=== PATIENT | female | born 1995 | race Caucasian/White ===

== ENCOUNTER → 2017-11-04 | Outpatient (REF) | payer OTHER | LOC: M LAB REF 17:15 | DX: J06.9 Acute upper respiratory infection, unspecified (principal) ==

== ENCOUNTER → 2017-11-17 | Outpatient (CLI) | payer OTHER ==
[2017-11-17 13:25] LABS: BASO % 0.3 % (0.0-1.0); EOS # 0.1 10^3/uL (0.0-0.50); HEMATOCRIT 38.4 % (36.0-47.0); HEMOGLOBIN 12.7 g/dl (12.0-16.0); IMMATURE GRANULOCYTE % 0.2 % (0-0); LYMPH # 2.2 10^3/uL (1.5-6.5); LYMPH % 23.3 % (24.0-44.0); MEAN CORPUSCULAR HGB CONC 33.1 g/dl (32.0-36.5); MEAN CORPUSCULAR VOLUME 90.6 fl (80.0-96.0); MONO # 0.5 10^3/uL (0.0-0.8); MONO % 5.1 % (0.0-5.0); NEUTROPHILS # 6.6 10^3/uL (1.8-7.7); NEUTROPHILS % 70.1 % (36.0-66.0); PLATELET COUNT, AUTOMATED 487 10^3/uL (150-450); RED BLOOD COUNT 4.24 10^6/uL (4.00-5.40); RED CELL DISTRIBUTION WIDTH 12.5 % (11.5-14.5); WHITE BLOOD COUNT 9.4 10^3/uL (4.0-10.0)
[2017-11-17 14:01] LABS: RUBELLA IgG QUALITATIVE IMMUNE (IMMUNE)
[2017-11-17 14:04] LABS: HBsAg Prenatal NEGATIVE (NEGATIVE)
[2017-11-17 14:31] LABS: HEPATITIS C VIRUS ABY INDEX < 0.0 INDEX (<0.8)
[2017-11-17 14:32] LABS: HIV 1&2 SCREEN CENTAUR NEGATIVE (NEGATIVE)
[2017-11-17 16:24] LABS: CHLAMYDIA DNA AMPLIFICATION NEGATIVE (NEGATIVE); GC DNA AMPLIFICATION NEGATIVE (NEGATIVE)
== END ==
LOC: M SMT 12:00
DX: Z34.81 Encounter for supervision of other normal pregnancy, first trimester (principal); Z3A.09 9 weeks gestation of pregnancy
CPT/HCPCS: 86762

== ENCOUNTER 2017-12-09 19:40 | Observation (INO) | payer OTHER ==
[2017-12-09 21:03] LABS: BASO % 0.3 % (0.0-1.0); EOS # 0.1 10^3/uL (0.0-0.50); EOS % 1.1 % (0.0-3.0); HEMATOCRIT 37.6 % (36.0-47.0); IMMATURE GRANULOCYTE % 0.3 % (0-3.0); LYMPH # 2.6 10^3/uL (1.5-6.5); LYMPH % 24.5 % (24.0-44.0); MEAN CORPUSCULAR HEMOGLOBIN 30.7 pg (27.0-33.0); MEAN CORPUSCULAR HGB CONC 34.6 g/dl (32.0-36.5); MEAN CORPUSCULAR VOLUME 88.9 fl (80.0-96.0); MONO # 0.6 10^3/uL (0.0-0.8); MONO % 5.4 % (0.0-5.0); NEUTROPHILS # 7.3 10^3/uL (1.8-7.7); NEUTROPHILS % 68.4 % (36.0-66.0); PLATELET COUNT, AUTOMATED 408 10^3/uL (150-450); RED BLOOD COUNT 4.23 10^6/uL (4.00-5.40); RED CELL DISTRIBUTION WIDTH 13.1 % (11.5-14.5); WHITE BLOOD COUNT 10.7 10^3/uL (4.0-10.0)
[2017-12-09 21:13] LABS: INR 0.97
[2017-12-09 21:14] LABS: PARTIAL THROMBOPLASTIN TIME 40.3 SECONDS (26.8-37.9)
[2017-12-09] MEDS: NS 1,000 ML IV (21:26)
[2017-12-09 21:39] LABS: ANION GAP 11 MEQ/L (8-16); BLOOD UREA NITROGEN 7 MG/DL (7-18); CALCIUM LEVEL 9.2 MG/DL (8.5-10.1); CARBON DIOXIDE LEVEL 22 MEQ/L (21-32); CHLORIDE LEVEL 105 MEQ/L (98-107); CK-MB VALUE MASS 1.1 NG/ML (0.0-3.6); CPK CREATINE PHOSPHOKINASE 131 U/L (26-192); CREATININE FOR GFR 0.56 MG/DL (0.55-1.30); GLOMERULAR FILTRATION RATE > 60.0 (>60); GLUCOSE, FASTING 78 MG/DL (70-100); MB/CK RELATIVE INDEX 0.83 (< OR =4); POTASSIUM SERUM 3.7 MEQ/L (3.5-5.1); SODIUM LEVEL 138 MEQ/L (136-145); TROPONIN I < 0.02 NG/ML (< 0.10)
[2017-12-09] MEDS: METOCLOPRAMIDE INJ 10MG/2ML VIAL (J2765) IV (23:20)
[2017-12-10 07:07] LABS: HEMATOCRIT 31.1 % (36.0-47.0); MEAN CORPUSCULAR HEMOGLOBIN 31.5 pg (27.0-33.0); MEAN CORPUSCULAR HGB CONC 34.7 g/dl (32.0-36.5); MEAN CORPUSCULAR VOLUME 90.7 fl (80.0-96.0); RED BLOOD COUNT 3.43 10^6/uL (4.00-5.40); RED CELL DISTRIBUTION WIDTH 13.2 % (11.5-14.5); WHITE BLOOD COUNT 7.5 10^3/uL (4.0-10.0)
[2017-12-10 07:15] LABS: HEMOGLOBIN 10.8 g/dl (12.0-16.0)
[2017-12-10 07:16] LABS: PLATELET COUNT, AUTOMATED 305 10^3/uL (150-450)
[2017-12-10 07:25] LABS: ANION GAP 9 MEQ/L (8-16); BLOOD UREA NITROGEN 9 MG/DL (7-18); CALCIUM LEVEL 8.2 MG/DL (8.5-10.1); CARBON DIOXIDE LEVEL 22 MEQ/L (21-32); CHLORIDE LEVEL 107 MEQ/L (98-107); CREATININE FOR GFR 0.53 MG/DL (0.55-1.30); GLOMERULAR FILTRATION RATE > 60.0 (>60); GLUCOSE, FASTING 86 MG/DL (70-100); POTASSIUM SERUM 3.5 MEQ/L (3.5-5.1); SODIUM LEVEL 138 MEQ/L (136-145)
[2017-12-10] MEDS: NS 1,000 ML IV ×2 (09:37→10:48)
[2017-12-10] MEDS: ACETAMINOPHEN TAB 650MG DOSE (2X325MG) PO (23:17)
[2017-12-11 07:04] LABS: HEMOGLOBIN 11.5 g/dl (12.0-16.0); MEAN CORPUSCULAR HEMOGLOBIN 30.4 pg (27.0-33.0); MEAN CORPUSCULAR HGB CONC 33.8 g/dl (32.0-36.5); MEAN CORPUSCULAR VOLUME 89.9 fl (80.0-96.0); PLATELET COUNT, AUTOMATED 345 10^3/uL (150-450); RED BLOOD COUNT 3.78 10^6/uL (4.00-5.40)
[2017-12-11 07:28] LABS: ANION GAP 8 MEQ/L (8-16); BLOOD UREA NITROGEN 6 MG/DL (7-18); CALCIUM LEVEL 8.4 MG/DL (8.5-10.1); CARBON DIOXIDE LEVEL 23 MEQ/L (21-32); CHLORIDE LEVEL 108 MEQ/L (98-107); CREATININE FOR GFR 0.53 MG/DL (0.55-1.30); GLOMERULAR FILTRATION RATE > 60.0 (>60); GLUCOSE, FASTING 83 MG/DL (70-100); POTASSIUM SERUM 3.6 MEQ/L (3.5-5.1); SODIUM LEVEL 139 MEQ/L (136-145)
[2017-12-11 09:00] LABS: KETONE, URINE AUTO RFX NEGATIVE (NEGATIVE); LEUKOCYTE ESTERASE UR AUTO RFX NEGATIVE (NEGATIVE); MUCUS, URINE RFX SMALL (NEGATIVE); NITRITE, URINE AUTO RFX NEGATIVE (NEGATIVE); RBC, URINE AUTO RFX 0 /HPF (0-3); SPECIFIC GRAVITY UR AUTO RFX 1.015 (1.002-1.035); SQUAM EPITHELIAL CELL UR AURFX 0 /HPF (0-6); WBC, URINE AUTO RFX 0 /HPF (0-3)
== END 2017-12-11 12:02 | disposition home or self-care (01) ==
LOC: M MSPAV 12-10 16:44 → M ED 19:40 → M ED INP 22:54
DX: G43.809 Other migraine, not intractable, without status migrainosus (principal); D72.829 Elevated white blood cell count, unspecified; R47.01 Aphasia; Z3A.12 12 weeks gestation of pregnancy; Z33.1 Pregnant state, incidental
CPT/HCPCS: J2765

== ENCOUNTER → 2018-02-10 | Outpatient (CLI) | payer OTHER | LOC: M RAD 18:33 | DX: Z36.89 Encounter for other specified antenatal screening (principal); Z3A.21 21 weeks gestation of pregnancy | CPT/HCPCS: 76816 ==

== ENCOUNTER → 2018-05-26 | Outpatient (REF) | payer OTHER | LOC: M LAB REF 17:18 | DX: Z36.89 Encounter for other specified antenatal screening (principal); Z3A.00 Weeks of gestation of pregnancy not specified | CPT/HCPCS: 87186 ==

== ENCOUNTER → 2018-06-14 | Outpatient (CLI) | payer OTHER | LOC: M RAD 08:05 | DX: O26.843 Uterine size-date discrepancy, third trimester (principal); Z3A.39 39 weeks gestation of pregnancy | CPT/HCPCS: 76816 ==

== ENCOUNTER → 2018-07-25 | Outpatient (REF) | payer OTHER ==
[2018-07-25 14:00] LABS: BASO # 0.1 10^3/uL (0.0-0.2); BASO % 0.9 % (0.0-1.0); EOS # 0.2 10^3/uL (0.0-0.50); EOS % 4.2 % (0.0-3.0); HEMATOCRIT 36.3 % (36.0-47.0); HEMOGLOBIN 12.2 g/dl (12.0-15.5); IMMATURE GRANULOCYTE % 0.4 % (0-3.0); LYMPH # 2.5 10^3/uL (1.5-6.5); LYMPH % 46.1 % (24.0-44.0); MEAN CORPUSCULAR HEMOGLOBIN 29.9 pg (27.0-33.0); MEAN CORPUSCULAR HGB CONC 33.6 g/dl (32.0-36.5); MONO # 0.4 10^3/uL (0.0-0.8); MONO % 7.3 % (0.0-5.0); NEUTROPHILS # 2.2 10^3/uL (1.8-7.7); NEUTROPHILS % 41.1 % (36.0-66.0); PLATELET COUNT, AUTOMATED 372 10^3/uL (150-450); RED BLOOD COUNT 4.08 10^6/uL (4.00-5.40); RED CELL DISTRIBUTION WIDTH 12.9 % (11.5-14.5); WHITE BLOOD COUNT 5.5 10^3/uL (4.0-10.0)
[2018-07-25 14:29] LABS: ERYTHROCYTE SEDIMENTATION RATE 37 mm/hr (0-20)
[2018-07-25 14:31] LABS: ALBUMIN 3.7 GM/DL (3.2-5.2); ALBUMIN/GLOBULIN RATIO 1.12 (1.00-1.93); ALKALINE PHOSPHATASE 113 U/L (45-117); ALT/SGPT 54 U/L (12-78); ANION GAP 8 MEQ/L (8-16); AST/SGOT 24 U/L (7-37); BILIRUBIN,TOTAL 0.4 MG/DL (0.2-1.0); BLOOD UREA NITROGEN 11 MG/DL (7-18); CALCIUM LEVEL 9.2 MG/DL (8.5-10.1); CARBON DIOXIDE LEVEL 25 MEQ/L (21-32); CHLORIDE LEVEL 109 MEQ/L (98-107); CREATININE FOR GFR 0.87 MG/DL (0.55-1.30); FREE T4 0.99 NG/DL (0.76-1.46); GLOMERULAR FILTRATION RATE > 60.0 (>60); GLUCOSE, FASTING 90 MG/DL (70-100); POTASSIUM SERUM 4.5 MEQ/L (3.5-5.1); RHEUMATOID FACTOR QUANT < 10.0 IU/ML (<15.0); SODIUM LEVEL 142 MEQ/L (136-145)
[2018-07-25 14:33] LABS: FOLATE 23.2 NG/ML
[2018-07-30 08:06] LABS: ANTINUCLEAR ANTIBODIES DIRECT Negative (Negative); VITAMIN B1 LEVEL WHOLE BLOOD 77.8 nmol/L (66.5-200.0); VITAMIN B6,PYRIDOXAL PHOSPHATE 2.9 ug/L (2.0-32.8); VITAMIN E(ALPHA TOCOPHEROL) 18.5 mg/L (5.9-19.4); VITAMIN E(GAMMA TOCOPHEROL) 2.6 mg/L (0.7-4.9)
== END ==
LOC: M LABNEURO 13:22
DX: G43.909 Migraine, unspecified, not intractable, without status migrainosus (principal); E07.9 Disorder of thyroid, unspecified
CPT/HCPCS: 82746

== ENCOUNTER → 2018-08-03 | Outpatient (REF) | payer OTHER | LOC: M LAB REF 18:29 | DX: J02.0 Streptococcal pharyngitis (principal) | CPT/HCPCS: 87070 ==

== ENCOUNTER 2018-10-27 04:55 | Emergency (ER) | payer OTHER ==
[~2018-10-27] VITALS: Ht 170.2 cm; Wt 110.9 kg
[~2018-10-27 04:55] MED LIST: AMOX500C PO; IBUP-1114 PO; MAGN400T5 PO; MAPA500T2 PO; MOM30SS PO; PRENTAB16 PO; SUDA15LI2 PO
[2018-10-27] MEDS ORDERED: VITA200015 PO (05:08)
[2018-10-27] MEDS ORDERED: MAGN200T PO (05:08)
[2018-10-27] MEDS ORDERED: MULTCAP PO (05:08)
[2018-10-27 05:55] LABS: BASO # 0.1 10^3/uL (0.0-0.2); BASO % 0.7 % (0.0-1.0); EOS # 0.4 10^3/uL (0.0-0.50); EOS % 3.6 % (0.0-3.0); HEMATOCRIT 40.2 % (36.0-47.0); HEMOGLOBIN 13.2 g/dl (12.0-15.5); LYMPH # 3.8 10^3/uL (1.5-6.5); LYMPH % 39.2 % (24.0-44.0); MEAN CORPUSCULAR HGB CONC 32.8 g/dl (32.0-36.5); MEAN CORPUSCULAR VOLUME 88.4 fl (80.0-96.0); MONO # 0.5 10^3/uL (0.0-0.8); MONO % 5.3 % (0.0-5.0); NEUTROPHILS % 50.9 % (36.0-66.0); PLATELET COUNT, AUTOMATED 471 10^3/uL (150-450); RED BLOOD COUNT 4.55 10^6/uL (4.00-5.40); WHITE BLOOD COUNT 9.8 10^3/uL (4.0-10.0)
[2018-10-27 05:58] LABS: HCG, SERUM QUALITATIVE NEGATIVE (NEGATIVE)
[2018-10-27 06:06] LABS: ALT/SGPT 44 U/L (12-78); BILIRUBIN,DIRECT < 0.1 MG/DL (0.0-0.2); BILIRUBIN,TOTAL 0.3 MG/DL (0.2-1.0); BLOOD UREA NITROGEN 11 MG/DL (7-18); CALCIUM LEVEL 8.8 MG/DL (8.5-10.1); CARBON DIOXIDE LEVEL 23 MEQ/L (21-32); CHLORIDE LEVEL 107 MEQ/L (98-107); CREATININE FOR GFR 0.83 MG/DL (0.55-1.30); GLOMERULAR FILTRATION RATE > 60.0 (>60); GLUCOSE, FASTING 102 MG/DL (70-100); LIPASE 152 U/L (73-393); POTASSIUM SERUM 3.5 MEQ/L (3.5-5.1); SODIUM LEVEL 141 MEQ/L (136-145); TOTAL PROTEIN 7.6 GM/DL (6.4-8.2)
[2018-10-27] MEDS ORDERED: ISOVUE-370 76% 100ML VIAL (Q9967) As Ordered ONE (06:25)
--- NOTE | 2018-10-27 06:49 | REPVR ---
EXAM: CT Abdomen and Pelvis With Contrast EXAM DATE/TIME: 10/27/2018 6:13 AM CLINICAL HISTORY: 23 years old, female; Pain; Abdominal pain; Periumbilical; Additional info: Umbillical pain, no hernia, ? appe TECHNIQUE: Axial computed tomography images of the abdomen and pelvis with intravenous contrast. All CT scans at this facility use at least one of these dose optimization techniques: automated exposure control; mA and/or kV adjustment per patient size (includes targeted exams where dose is matched to clinical indication); or iterative reconstruction. Coronal and sagittal reformatted images were created and reviewed. CONTRAST: 100 ml of iso administered intravenously. COMPARISON: US OBS FOLL UP OR REPEAT EACH GES 06/14/2018 8:13 AM FINDINGS: Lower thorax: No acute findings. ABDOMEN: Liver: Normal. No mass. Gallbladder and bile ducts: Layering gallstones seen within the gallbladder. There is suggestion of mild gallbladder wall thickening. Pancreas: Normal. No ductal dilation. Spleen: Normal. No splenomegaly. Adrenals: Normal. No mass. Kidneys and ureters: Normal. No hydronephrosis. Stomach and bowel: There are thickened versus under distended proximal small bowel - jejunal bowel loops. Appendix: No evidence of appendicitis. PELVIS: Bladder: Unremarkable as visualized. Reproductive: Unremarkable as visualized. ABDOMEN and PELVIS: Intraperitoneal space: Normal. No free air. No significant fluid collection. Bones/joints: No acute fracture. No dislocation. Soft tissues: Unremarkable. Vasculature: Normal. No abdominal aortic aneurysm. Lymph nodes: There are small shotty mesenteric lymph nodes. IMPRESSION: 1. No CT evidence of acute appendicitis. 2. Gallstones with suggestion of mild gallbladder wall thickening. No pericholecystic stranding or edema seen. Finding could be secondary to chronic cholecystitis however underlying acute process cannot be excluded. Correlate with patient's symptoms and LFTs. If indicated ultrasound may be obtained for further evaluation. 3. Underdistended vs mildly thickened jejunal bowel loops. Correlate clinically for enteritis. Electronically signed by: Pratik Murry On 10/27/2018 06:48:45 AM
[2018-10-27] MEDS ORDERED: FLAG500T PO (06:58)
[2018-10-27] MEDS ORDERED: ONDA4TAB6 PO (06:58)
[2018-10-27] MEDS ORDERED: KETO10TAB PO (06:58)
[2018-10-27] MEDS ORDERED: CIPR-249 PO (06:58)
[2018-10-27 07:05] VITALS: BP 132/60
--- NOTE | 2018-10-28 07:21 | ED PDOC ---
Post-Departure Follow-Up rashmi de la vega and david faxed formal report of ct abd/p for fu Bandar Patricio MD Oct 28, 2018 07:21
== END 2018-10-27 07:12 | disposition home or self-care (01) ==
LOC: M ED 04:55
DX: K80.20 Calculus of gallbladder without cholecystitis without obstruction (principal); K52.9 Noninfective gastroenteritis and colitis, unspecified; R10.33 Periumbilical pain; E66.9 Obesity, unspecified; G43.909 Migraine, unspecified, not intractable, without status migrainosus; F41.9 Anxiety disorder, unspecified; R47.01 Aphasia; Z87.440 Personal history of urinary (tract) infections; Z79.899 Other long term (current) drug therapy; Z88.1 Allergy status to other antibiotic agents
CPT/HCPCS: 74177; 80048; 80076; 81001; 83690; 84703; 85025; 99284; Q9967

== ENCOUNTER → 2018-12-27 | Outpatient (REF) | payer OTHER ==
[~2018-12-27] MED LIST changes: +CIPR-249 PO; +FLAG500T PO; +KETO10TAB PO; +MAGN200T PO; +MULTCAP PO; +ONDA4TAB6 PO; +VITA200015 PO
[2018-12-27 17:20] LABS: INFLUENZA A AMPLIFICATION NEGATIVE (NEGATIVE); INFLUENZA B AMPLIFICATION NEGATIVE (NEGATIVE)
== END ==
LOC: M LAB REF 16:32
PROVIDERS: ATTEND Physician Assistant
DX: J11.1 Influenza due to unidentified influenza virus with other respiratory manifestations (principal)

== ENCOUNTER → 2019-01-25 | Outpatient (CLI) | payer OTHER | LOC: M WUC 12:14 | PROVIDERS: ATTEND Family Medicine | DX: E66.9 Obesity, unspecified (principal) ==

== ENCOUNTER 2019-02-22 20:56 | Emergency (ER) | payer OTHER ==
[~2019-02-22] VITALS: Ht 170.2 cm; Wt 113.2 kg
[2019-02-22 20:56] VITALS: BP 171/93
[2019-02-22] MEDS ORDERED: NAPR-837 PO (21:52)
== END 2019-02-22 22:00 | disposition home or self-care (01) ==
LOC: M ED 20:56
DX: S46.912A Strain of unspecified muscle, fascia and tendon at shoulder and upper arm level, left arm, initial encounter (principal); X58.XXXA Exposure to other specified factors, initial encounter; Y92.9 Unspecified place or not applicable; Y93.9 Activity, unspecified; Y99.9 Unspecified external cause status; G43.909 Migraine, unspecified, not intractable, without status migrainosus; Z72.0 Tobacco use; Z79.899 Other long term (current) drug therapy; Z88.8 Allergy status to other drugs, medicaments and biological substances

== ENCOUNTER 2019-07-28 22:04 | Emergency (ER) | payer OTHER ==
[~2019-07-28] VITALS: Ht 170.2 cm; Wt 110.0 kg
[2019-07-28 22:04] VITALS: BP 139/90
[~2019-07-28 22:04] MED LIST changes: +NAPR-837 PO
[2019-07-28] MEDS ORDERED: LILL1TAB PO (22:13)
[2019-07-28] MEDS ORDERED: PRED20TA PO (22:13)
[2019-07-28] MEDS ORDERED: BENZ-18 PO (22:13)
[2019-07-28] MEDS ORDERED: FLUO20CA19 PO (22:13)
[2019-07-28] MEDS ORDERED: AZIT-12 PO (22:13)
[2019-07-28] MEDS ORDERED: IPRATROPIUM 0.5MG/ALBUTEROL 2.5MG INH SOL UD 3ML (DUONEB)(J7620) NEB PRN (23:30)
[2019-07-29 00:12] LABS: BASO % 0.2 % (0.0-1.0); EOS # 0.1 10^3/uL (0.0-0.5); EOS % 0.5 % (0.0-3.0); HEMATOCRIT 38.2 % (36.0-47.0); HEMOGLOBIN 12.5 g/dl (12.0-15.5); LYMPH # 2.1 10^3/uL (1.5-5.0); LYMPH % 12.9 % (24.0-44.0); MEAN CORPUSCULAR HEMOGLOBIN 29.6 pg (27.0-33.0); MEAN CORPUSCULAR HGB CONC 32.7 g/dl (32.0-36.5); MEAN CORPUSCULAR VOLUME 90.5 fl (80.0-96.0); MONO # 0.8 10^3/uL (0.0-0.8); MONO % 4.9 % (0.0-5.0); NEUTROPHILS % 81.2 % (36.0-66.0); PLATELET COUNT, AUTOMATED 452 10^3/uL (150-450); RED BLOOD COUNT 4.22 10^6/uL (4.00-5.40)
[2019-07-29 00:20] LABS: INFLUENZA A AMPLIFICATION NEGATIVE (NEGATIVE); INFLUENZA B AMPLIFICATION NEGATIVE (NEGATIVE)
[2019-07-29 00:22] LABS: BLOOD UREA NITROGEN 10 MG/DL (7-18); CALCIUM LEVEL 9.2 MG/DL (8.5-10.1); CARBON DIOXIDE LEVEL 28 MEQ/L (21-32); CHLORIDE LEVEL 104 MEQ/L (98-107); CK-MB VALUE MASS 2.4 NG/ML (<3.6); CPK CREATINE PHOSPHOKINASE 165 U/L (26-192); CREATININE FOR GFR 0.82 MG/DL (0.55-1.30); GLOMERULAR FILTRATION RATE > 60.0 (>60); GLUCOSE, FASTING 92 MG/DL (70-100); MB/CK RELATIVE INDEX 1.45 (< OR =4); POTASSIUM SERUM 3.7 MEQ/L (3.5-5.1); SODIUM LEVEL 138 MEQ/L (136-145); TROPONIN I < 0.02 NG/ML (< 0.10)
[2019-07-29] MEDS ORDERED: PROAAER10 INH (00:42)
[2019-07-29] MEDS ORDERED: PSEU120T19 PO (00:42)
[2019-07-29] MEDS ORDERED: ALBUTEROL 90 MCG/ACT 8GM HFA INHALER INH ONE ×2 (00:45→01:00)
--- NOTE | 2019-07-29 07:35 | ECGEPIP ---
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
--- NOTE | 2019-07-29 08:27 | REP ---
Chest x-ray: Two views. History: Dyspnea and cough . Comparison study: No comparison study . Findings: The lungs are well inflated and free of infiltrate. The pleural angles are sharp. The heart size is normal. Pulmonary vasculature is not increased. No significant bony abnormality is seen. Impression: Negative chest x-ray. Electronically Signed by Frankie Nolan MD 07/29/2019 08:19 A
== END 2019-07-29 00:54 | disposition home or self-care (01) ==
LOC: M ED 22:04
DX: J06.9 Acute upper respiratory infection, unspecified (principal); Z79.899 Other long term (current) drug therapy; Z88.2 Allergy status to sulfonamides; Z88.8 Allergy status to other drugs, medicaments and biological substances; F17.210 Nicotine dependence, cigarettes, uncomplicated

== ENCOUNTER → 2019-11-23 | Outpatient (REF) | payer OTHER ==
[~2019-11-23] MED LIST changes: +ACET-683 PO; +AZIT-12 PO; +BENZ-18 PO; +FLUO20CA22 PO; +IBUP-1022 PO; +LILL1TAB PO; +OSEL75CA2; +PRED20TA PO; +PROAAER10 INH; +PSEU120T19 PO
[2019-11-23 13:01] LABS: INFLUENZA A AMPLIFICATION NEGATIVE (NEGATIVE); INFLUENZA B AMPLIFICATION NEGATIVE (NEGATIVE)
== END ==
LOC: M LAB REF 12:08
PROVIDERS: ATTEND Physician Assistant
DX: J11.1 Influenza due to unidentified influenza virus with other respiratory manifestations (principal)

== ENCOUNTER 2019-11-28 11:55 | Emergency (ER) | payer OTHER ==
[~2019-11-28] VITALS: Ht 172.7 cm; Wt 112.5 kg
[~2019-11-28 11:55] MED LIST changes: -ACET-683 PO; -IBUP-1022 PO; -OSEL75CA2
[2019-11-28] MEDS ORDERED: OSEL75CA2 (12:02)
[2019-11-28 13:57] LABS: BASO % 0.5 % (0.0-1.0); EOS # 0.2 10^3/uL (0.0-0.5); EOS % 2.7 % (0.0-3.0); LYMPH # 2.6 10^3/uL (1.5-5.0); LYMPH % 30.9 % (24.0-44.0); MEAN CORPUSCULAR HEMOGLOBIN 30.9 pg (27.0-33.0); MEAN CORPUSCULAR HGB CONC 34.2 g/dl (32.0-36.5); MEAN CORPUSCULAR VOLUME 90.3 fl (80.0-96.0); MONO # 0.4 10^3/uL (0.0-0.8); MONO % 4.2 % (0.0-5.0); NEUTROPHILS # 5.2 10^3/uL (1.5-8.5); NEUTROPHILS % 61.3 % (36.0-66.0); PLATELET COUNT, AUTOMATED 466 10^3/uL (150-450); RED BLOOD COUNT 4.21 10^6/uL (4.00-5.40); WHITE BLOOD COUNT 8.4 10^3/uL (4.0-10.0)
--- NOTE | 2019-11-28 14:28 | REP ---
The clinical: Chest pain . Comparison: 07/28/2019 . Findings: The mediastinum and cardiac silhouette are stable and within normal limits for portable technique. The lung cee are clear without acute consolidation, effusion, or pneumothorax. Skeletal structures are intact. Impression: No acute cardiopulmonary process appreciated. Electronically Signed by David Collins MD 11/28/2019 02:20 P
[2019-11-28 14:32] LABS: BLOOD UREA NITROGEN 10 MG/DL (7-18); CALCIUM LEVEL 9.1 MG/DL (8.5-10.1); CARBON DIOXIDE LEVEL 25 MEQ/L (21-32); CHLORIDE LEVEL 107 MEQ/L (98-107); CK-MB VALUE MASS 1.1 NG/ML (<3.6); CPK CREATINE PHOSPHOKINASE 138 U/L (26-192); GLOMERULAR FILTRATION RATE > 60.0 (>60); GLUCOSE, FASTING 124 MG/DL (70-100); POTASSIUM SERUM 3.7 MEQ/L (3.5-5.1); SODIUM LEVEL 137 MEQ/L (136-145); TROPONIN I < 0.02 NG/ML (< 0.10)
[2019-11-28 15:22] VITALS: BP 114/53
[2019-11-28] MEDS ORDERED: ACETAMINOPHEN 325 MG TAB PO ONE (16:00)
[2019-11-28] MEDS ORDERED: IBUPROFEN 800 MG TAB PO ONE (16:00)
[2019-11-28] MEDS ORDERED: IBUP-1022 PO (16:08)
[2019-11-28] MEDS ORDERED: ACET-683 PO (16:08)
--- NOTE | 2019-11-28 20:29 | ECGEPIP ---
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
== END 2019-11-28 16:10 | disposition home or self-care (01) ==
LOC: M ED 11:55
DX: S29.011A Strain of muscle and tendon of front wall of thorax, initial encounter (principal); X58.XXXA Exposure to other specified factors, initial encounter; Y92.89 Other specified places as the place of occurrence of the external cause; Z79.899 Other long term (current) drug therapy; Z88.2 Allergy status to sulfonamides; Z88.8 Allergy status to other drugs, medicaments and biological substances; F17.210 Nicotine dependence, cigarettes, uncomplicated

== ENCOUNTER → 2020-03-21 | Outpatient (CLI) | payer OTHER ==
[~2020-03-21] MED LIST changes: +ACET-683 PO; +IBUP-1022 PO; +OSEL75CA2
[2020-03-21 23:13] LABS: CHLAMYDIA DNA AMPLIFICATION NEGATIVE (NEGATIVE); GC DNA AMPLIFICATION NEGATIVE (NEGATIVE)
[2020-03-22 09:41] LABS: HEPATITIS B SURFACE ANTIBODY NEGATIVE (POSITIVE); HEPATITIS B SURFACE ANTIGEN NEGATIVE (NEGATIVE); HEPATITIS C VIRUS ABY INDEX 0.3 INDEX (<0.8); HIV 1&2 SCREEN CENTAUR NEGATIVE (NEGATIVE)
== END ==
LOC: M WUC 14:54
PROVIDERS: ATTEND Family Medicine
DX: Z11.3 Encounter for screening for infections with a predominantly sexual mode of transmission (principal)

== ENCOUNTER → 2020-03-25 | Outpatient (REF) | payer OTHER | LOC: M SFHCWAGY 17:53 | PROVIDERS: ATTEND Obstetrics & Gynecology | DX: Z12.4 Encounter for screening for malignant neoplasm of cervix (principal); R87.612 Low grade squamous intraepithelial lesion on cytologic smear of cervix (LGSIL) ==

== ENCOUNTER 2020-05-28 07:30 | Day surgery (SDC) | payer OTHER ==
[~2020-05-28 07:30] MED LIST changes: +BUPIVACAINE HCL 0.25% 30ML VIAL ONE
[2020-05-28] MEDS ORDERED: MIDAZOLAM INJ 2MG/2ML VIAL (J2250 PER 1MG) ONE (08:41)
[2020-05-28] MEDS ORDERED: LIDOCAINE 2% 100MG/5ML SDV (FOR ANES.) ONE (08:41)
[2020-05-28] MEDS ORDERED: dexameTHASONE 4 MG/ML 1ML VIAL (J1100 PER 1MG) ONE ×2 (08:41)
[2020-05-28] MEDS ORDERED: METOCLOPRAMIDE INJ 10MG/2ML VIAL (J2765 PER 1) ONE (08:41)
[2020-05-28] MEDS ORDERED: ACETAMINOPHEN 1000MG 100ML IV BTL (OFIRMEV) (J0131 PER 10MG) ONE (08:41)
[2020-05-28] MEDS ORDERED: fentaNYL 100 MCG/2 ML INJECTION (J3010) ONE (08:41)
[2020-05-28] MEDS ORDERED: ROCURONIUM BROMIDE 50 MG/5 ML VIAL ONE (08:41)
[2020-05-28] MEDS ORDERED: KETOROLAC 60MG 2ML VIAL ONE (08:41)
[2020-05-28] MEDS ORDERED: ONDANSETRON 4MG/2ML VIAL ONE (08:41)
[2020-05-28] MEDS ORDERED: propofoL 500 MG/50 ML VIAL ONE (08:41)
[2020-05-28] MEDS ORDERED: GLYCOPYRROLATE INJ 0.2 MG/ML 2 ML VIAL ONE (10:58)
[2020-05-28] MEDS ORDERED: ePHEDrine SULFATE 25 MG/5 ML(5MG/ML) SYRINGE ONE (11:03)
[2020-05-28] MEDS ORDERED: SUGAMMADEX SODIUM 500 MG/5 ML VIAL (BRIDION) ONE (11:14)
[2020-06-25 10:43] LABS: HEMATOCRIT 39.6 % (36.0-47.0); HEMOGLOBIN 13.1 g/dl (12.0-15.5); MEAN CORPUSCULAR HEMOGLOBIN 29.7 pg (27.0-33.0); MEAN CORPUSCULAR HGB CONC 33.1 g/dl (32.0-36.5); MEAN CORPUSCULAR VOLUME 89.8 fl (80.0-96.0); PLATELET COUNT, AUTOMATED 443 10^3/uL (150-450); RED BLOOD COUNT 4.41 10^6/uL (4.00-5.40); WHITE BLOOD COUNT 7.2 10^3/uL (4.0-10.0)
--- NOTE | 2020-07-18 10:17 | RO ---
DATE OF OPERATION: 05/28/2020 PREOPERATIVE DIAGNOSIS: Satisfied parity with undesired fertility. POSTOPERATIVE DIAGNOSIS: Satisfied parity with undesired fertility. PROCEDURE PERFORMED: Laparoscopic bilateral salpingectomies. SURGEON: Stefanie Gómez MD EDGE SANDER: None. ANESTHESIA: General endotracheal anesthesia. ESTIMATED BLOOD LOSS: 5 mL. INTRAVENOUS FLUIDS: 500 mL. URINE OUTPUT: 300 mL. SPECIMENS: Bilateral fallopian tubes. DESCRIPTION OF OPERATION: After informed consent was obtained and written consent was reviewed, the patient was brought to the operating room where she was placed under general endotracheal anesthesia. She was then placed in the lithotomy position and was prepped and draped in normal sterile fashion. A time- out in the operating room was then performed identifying the patient, procedure being performed, as well as drug allergies. A bivalve speculum was then placed revealing the cervix. The anterior lip of the cervix was grasped with a single-toothed tenaculum. The tenaculum was then advanced to the cervical os for a means to manipulate the uterus. The single- toothed tenaculum, as well as the speculum, was removed. Patel catheter was then placed and set to gravity. Gloves were changed and attention was turned to the patient's abdomen where 0.25% Marcaine was infused in the umbilical region. This area was incised and a 5-mm trocar and sleeve were advanced into this incision. Intraabdominal placement was confirmed. Pneumoperitoneum was then obtained with CO2 gas. Two additional port sites were placed. The second port site was 2 cm above the pubic symphysis in the midline. This area was infused with 0.25% Marcaine and an 8-mm incision was made and an 8-mm trocar and sleeve were advanced through this incision under direct visualization. A third port site was placed, parallel to the umbilicus on the left side of the patient's abdomen. This area was infused with 0.25% Marcaine. An incision was then made in this area and a 5-mm trocar and sleeve were advanced through this incision under direct visualization. Next, the abdomen was then surveyed showing a normal pelvic anatomy to include uterus and bilateral adnexa. Next, the bilateral salpingectomy was then performed. The left fallopian tube was placed on traction. Using a Harmonic Arsh scalpel device, the left mesosalpinx was then dissected underneath the fallopian tube to the level of the uterus. The fallopian tube was then transected at the level of the uterus with good hemostasis noted. The specimen was then brought out and sent to pathology. In a similar fashion, the right fallopian tube was placed on traction. Using a Harmonic Arsh scalpel device, the mesosalpinx was cauterized underneath the right fallopian tube to the level of the uterus and then was transected at the level of the uterus with good hemostasis noted. The specimen was also brought out through the port site. The surgical sites were re-inspected and noted to be hemostatic. The pneumoperitoneum was then released. The instruments were removed from the patient's abdomen. Port sites were removed. The three port sites were then closed with 4-0 Monocryl and were dressed with Dermabond. The tenaculum was then removed. The tenaculum site was noted to be hemostatic. Patel catheter was removed. The patient was then taken out of the lithotomy position and taken to the recovery room in stable condition. The counts were correct. MTDD
== END 2020-05-28 10:45 | disposition home or self-care (01) ==
LOC: M SDC 07:30
PROVIDERS: ATTEND Obstetrics & Gynecology
DX: Z30.2 Encounter for sterilization (principal); F41.9 Anxiety disorder, unspecified; F32.9 Major depressive disorder, single episode, unspecified; F17.290 Nicotine dependence, other tobacco product, uncomplicated; Z79.899 Other long term (current) drug therapy; Z88.1 Allergy status to other antibiotic agents
CPT/HCPCS: 36415; 58661; 85027; 86850; 86900; 86901; 88302; J0131; J1100; J1885; J2250; J2405; J2765; J3010

== ENCOUNTER → 2020-07-03 | Outpatient (REF) | payer OTHER ==
[~2020-07-03] MED LIST changes: -BUPIVACAINE HCL 0.25% 30ML VIAL ONE
[2020-07-03 18:01] LABS: BASO # 0.1 10^3/uL (0.0-0.2); BASO % 1.2 % (0.0-1.0); EOS # 0.3 10^3/uL (0.0-0.5); EOS % 3.6 % (0.0-3.0); HEMATOCRIT 41.6 % (36.0-47.0); HEMOGLOBIN 13.3 g/dl (12.0-15.5); LYMPH # 2.7 10^3/uL (1.5-5.0); LYMPH % 35.3 % (24.0-44.0); MEAN CORPUSCULAR HEMOGLOBIN 29.8 pg (27.0-33.0); MEAN CORPUSCULAR VOLUME 93.1 fl (80.0-96.0); MONO # 0.6 10^3/uL (0.0-0.8); MONO % 8.2 % (0.0-5.0); NEUTROPHILS % 51.2 % (36.0-66.0); PLATELET COUNT, AUTOMATED 469 10^3/uL (150-450); RED BLOOD COUNT 4.47 10^6/uL (4.00-5.40); WHITE BLOOD COUNT 7.7 10^3/uL (4.0-10.0)
[2020-07-03 18:08] LABS: ALBUMIN 3.6 GM/DL (3.2-5.2); ALT/SGPT 83 U/L (12-78); BILIRUBIN,TOTAL 0.3 MG/DL (0.2-1.0); BLOOD UREA NITROGEN 9 MG/DL (7-18); CALCIUM LEVEL 9.4 MG/DL (8.5-10.1); CARBON DIOXIDE LEVEL 26 MEQ/L (21-32); CHLORIDE LEVEL 106 MEQ/L (98-107); CHOLESTEROL LEVEL 237 MG/DL (<200); CHOLESTEROL RISK RATIO 5.042 (<5); CREATININE FOR GFR 0.79 MG/DL (0.55-1.30); FREE T4 0.95 NG/DL (0.76-1.46); GLOMERULAR FILTRATION RATE > 60.0 (>60); GLUCOSE, FASTING 96 MG/DL (70-100); HDL CHOLESTEROL 47 MG/DL (>40); LDL CHOLESTEROL 143 MG/DL (<100); NON-HDL-C 190 MG/DL; POTASSIUM SERUM 4.3 MEQ/L (3.5-5.1); SODIUM LEVEL 140 MEQ/L (136-145); TOTAL 25(OH) VITAMIN D 17.2 NG/ML (30.0-100.0); TOTAL PROTEIN 6.9 GM/DL (6.4-8.2); TRIGLYCERIDES LEVEL 233 MG/DL (<150)
[2020-07-03 18:17] LABS: HEMOGLOBIN A1c 5.1 %
== END ==
LOC: M LAB REF 17:07
PROVIDERS: ATTEND Nurse Practitioner Family
DX: Z13.9 Encounter for screening, unspecified (principal); F41.8 Other specified anxiety disorders; F17.200 Nicotine dependence, unspecified, uncomplicated; E66.9 Obesity, unspecified

== ENCOUNTER → 2020-07-03 | Outpatient (REF) | payer OTHER ==
[2020-07-03 14:19] LABS: APPEARANCE, URINE CLOUDY (CLEAR); BACTERIA, URINE AUTO NEGATIVE (NEGATIVE); BILIRUBIN, URINE AUTO NEGATIVE (NEGATIVE); BLOOD, URINE BLOOD NEGATIVE (NEGATIVE); COLOR, URINE YELLOW (YELLOW); GLUCOSE, URINE (UA) AUTO NEGATIVE (NEGATIVE); KETONE, URINE AUTO NEGATIVE (NEGATIVE); LEUKOCYTE ESTERASE, URINE AUTO 2+ (NEGATIVE); NITRITE, URINE AUTO NEGATIVE (NEGATIVE); PROTEIN, URINE AUTO NEGATIVE (NEGATIVE); RBC, URINE AUTO 0 /HPF (0-3); SPECIFIC GRAVITY URINE AUTO 1.021 (1.002-1.035); SQUAMOUS EPITHELIAL CELL UR AU 14 /HPF (0-6); UROBILINOGEN, URINE AUTO 0.2 mg/dL (0.0-2.0); WBC, URINE AUTO 5 /HPF (0-3)
== END ==
LOC: M LAB REF 13:37
PROVIDERS: ATTEND Nurse Practitioner Family
DX: E66.9 Obesity, unspecified (principal); F17.200 Nicotine dependence, unspecified, uncomplicated; Z13.9 Encounter for screening, unspecified; F41.8 Other specified anxiety disorders

== ENCOUNTER → 2020-08-14 | Outpatient (REF) | payer OTHER ==
[2020-08-14 18:12] LABS: APPEARANCE, URINE CLEAR (CLEAR); BACTERIA, URINE AUTO 1+ (NEGATIVE); BILIRUBIN, URINE AUTO NEGATIVE (NEGATIVE); BLOOD, URINE BLOOD NEGATIVE (NEGATIVE); COLOR, URINE YELLOW (YELLOW); GLUCOSE, URINE (UA) AUTO NEGATIVE (NEGATIVE); KETONE, URINE AUTO NEGATIVE (NEGATIVE); LEUKOCYTE ESTERASE, URINE AUTO NEGATIVE (NEGATIVE); NITRITE, URINE AUTO NEGATIVE (NEGATIVE); PROTEIN, URINE AUTO NEGATIVE (NEGATIVE); RBC, URINE AUTO 0 /HPF (0-3); SPECIFIC GRAVITY URINE AUTO 1.017 (1.002-1.035); SQUAMOUS EPITHELIAL CELL UR AU 2 /HPF (0-6); UROBILINOGEN, URINE AUTO 0.2 mg/dL (0.0-2.0); WBC, URINE AUTO 1 /HPF (0-3)
== END ==
LOC: M LAB REF 17:15
PROVIDERS: ATTEND Nurse Practitioner Family
DX: Z11.3 Encounter for screening for infections with a predominantly sexual mode of transmission (principal)

== ENCOUNTER → 2020-08-14 | Outpatient (REF) | payer OTHER | LOC: M LAB REF 16:59 | PROVIDERS: ATTEND Nurse Practitioner Family | DX: Z11.3 Encounter for screening for infections with a predominantly sexual mode of transmission (principal) ==

== ENCOUNTER → 2020-11-15 | Outpatient (CLI) | payer SELFPAY | LOC: M LABSMTC 11:48 | PROVIDERS: ATTEND Pediatrics | DX: Z20.822 Contact with and (suspected) exposure to COVID-19 (principal) ==

== ENCOUNTER 2020-12-11 20:32 | Emergency (ER) | payer OTHER ==
[~2020-12-11] VITALS: Ht 170.2 cm; Wt 129.6 kg
[2020-12-11] MEDS ORDERED: MUCI600T31 PO (20:52)
[2020-12-11] MEDS ORDERED: XANA1TAB2 PO ×2 (20:52→23:40)
[2020-12-11] MEDS ORDERED: PROAAER10 INH (23:40)
[2020-12-11] MEDS ORDERED: BREAMIS10 MC (23:40)
[2020-12-11] MEDS ORDERED: TESS100C PO (23:40)
[2020-12-12 00:18] VITALS: BP 138/88
--- NOTE | 2020-12-13 07:58 | ECGEPIP ---
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
== END 2020-12-12 00:37 | disposition home or self-care (01) ==
LOC: M ED 20:32
DX: R06.02 Shortness of breath (principal); R53.83 Other fatigue; U07.1 COVID-19; Z88.2 Allergy status to sulfonamides; Z88.8 Allergy status to other drugs, medicaments and biological substances; Z79.3 Long term (current) use of hormonal contraceptives

== ENCOUNTER → 2020-12-23 | Outpatient (REF) | payer OTHER ==
[~2020-12-23] MED LIST changes: +BREAMIS10 MC; +MUCI600T31 PO; +TESS100C PO; +XANA1TAB2 PO
[2020-12-23 17:10] LABS: BASO # 0.1 10^3/uL (0.0-0.2); BASO % 0.9 % (0.0-1.0); EOS # 0.2 10^3/uL (0.0-0.5); EOS % 2.3 % (0.0-3.0); HEMATOCRIT 44.4 % (36.0-47.0); HEMOGLOBIN 14.5 g/dl (12.0-15.5); LYMPH # 2.6 10^3/uL (1.5-5.0); LYMPH % 37.8 % (24.0-44.0); MEAN CORPUSCULAR HEMOGLOBIN 29.5 pg (27.0-33.0); MEAN CORPUSCULAR HGB CONC 32.7 g/dl (32.0-36.5); MEAN CORPUSCULAR VOLUME 90.4 fl (80.0-96.0); MONO # 0.6 10^3/uL (0.0-0.8); MONO % 8.5 % (2.0-8.0); NEUTROPHILS # 3.4 10^3/uL (1.5-8.5); NEUTROPHILS % 50.4 % (36.0-66.0); PLATELET COUNT, AUTOMATED 595 10^3/uL (150-450); RED BLOOD COUNT 4.91 10^6/uL (4.00-5.40); WHITE BLOOD COUNT 6.8 10^3/uL (4.0-10.0)
[2020-12-23 17:17] LABS: ALT/SGPT 56 U/L (12-78); BILIRUBIN,TOTAL 0.6 MG/DL (0.2-1.0); BLOOD UREA NITROGEN 6 MG/DL (7-18); CARBON DIOXIDE LEVEL 27 MEQ/L (21-32); CHLORIDE LEVEL 104 MEQ/L (98-107); CHOLESTEROL LEVEL 255 MG/DL (<200); CHOLESTEROL RISK RATIO 5.204 (<5); CREATININE FOR GFR 0.87 MG/DL (0.55-1.30); GLOMERULAR FILTRATION RATE > 60.0 (>60); GLUCOSE, FASTING 97 MG/DL (70-100); HDL CHOLESTEROL 49 MG/DL (>40); LDL CHOLESTEROL 171 MG/DL (<100); NON-HDL-C 206 MG/DL; POTASSIUM SERUM 4.3 MEQ/L (3.5-5.1); SODIUM LEVEL 138 MEQ/L (136-145); TOTAL PROTEIN 7.7 GM/DL (6.4-8.2); TRIGLYCERIDES LEVEL 173 MG/DL (<150)
[2020-12-23 17:25] LABS: TOTAL 25(OH) VITAMIN D 31.6 NG/ML (30.0-100.0)
[2020-12-23 18:05] LABS: HIV 1&2 SCREEN CENTAUR NEGATIVE (NEGATIVE)
== END ==
LOC: M LAB REF 16:28
PROVIDERS: ATTEND Nurse Practitioner Family
DX: E78.5 Hyperlipidemia, unspecified (principal); E66.01 Morbid (severe) obesity due to excess calories; Z11.3 Encounter for screening for infections with a predominantly sexual mode of transmission

== ENCOUNTER 2021-07-29 09:15 | Emergency (ER) | payer OTHER ==
[~2021-07-29] VITALS: Ht 170.2 cm; Wt 128.0 kg
--- OUTSIDE RECORDS SUMMARY | 2021-07-29 09:20 | CCD ---
Author Organization Unknown Address [address] [place] [address] Phone [phone] Care Team Providers Care Thermostat Maker Name Role Phone Ember Davila Unavailable Unavailable Allergies Code Code System Name Reaction Severity Status Onset 890645 RxNorm Bactrim Active 05/30/2020 Medications Name Status Start Date Stop Date acetaminophen 500 mg tablet Completed 01/2020 albuterol sulfate HFA 90 mcg/actuation a erosol inhaler INHALE 2 PUFFS BY MOUTH EVERY 4 6 HOURS NEEDED FOR WHEEZING Completed 02/12/2021 alprazolam 0.5 mg tablet Completed alprazolam 1 mg tablet Take 1 tablet 3 times a day by oral route. Active Not available azelastine 137 mcg (0.1 %) nasal spray aerosol Completed 08/14/2020 azithromycin 250 mg tablet TAKE TWO TABLETS BY MOUTH AT ONCE ON THE FIRST DAY THEN TAKE ONE DAILY THEREAFTER Completed 08/14/2020 benzonatate 100 mg capsule TAKE ONE CAPSULE BY MOUTH THREE TIMES A DAY FOR COUGH Completed 02/12/2021 cefdinir 300 mg capsule TAKE ONE CAPSULE BY MOUTH TWICE A DAY FOR 10 DAYS Completed 08/14/2020 cholecalciferol (vitamin D3) 1,250 mcg ( 50,000 unit) capsule TAKE ONE CAPSULE BY MOUTH WEEKLY FOR 12 WEEKS THEN TAKE 1000UNITS DAILY Active Not available fluoxetine 20 mg capsule TAKE ONE CAPSULE BY MOUTH EVERY DAY Active Not available fluticasone propionate 50 mcg/actuation nasal spray,suspension SPRAY 1 SPRAY IN EACH NOSTRIL ONCE A DAY Active Not available ibuprofen 600 mg tablet TAKE ONE TABLET BY MOUTH EVERY 6 HOURS NEEDED FOR PAIN Completed 08/14/2020 ibuprofen 800 mg tablet TAKE 1 TABLET BY MOUTH EVERY 8 HOURS NEEDED FOR PAIN Active Not available ketorolac 0.5 % eye drops INSTILL 1 DROP IN THE AFFECTED EYE S THREE TIMES A DAY FOR 5 DAYS Completed 06/10/2021 loratadine 10 mg tablet TAKE ONE TABLET BY MOUTH EVERY DAY NEEDED FOR ALLERGY SYMPTOMS Completed 08/14/2020 ondansetron 4 mg disintegrating tablet Completed 02/12/2021 Kika Stack [facility] spacer USE DIRECTED Completed 06/10/2021 oseltamivir 75 mg capsule Completed 2019 oxycodone-acetaminophen 5 mg-325 mg tablet Completed 08/14/2020 Jennifer 28 0.15 mg-0.03 mg tablet Completed 08/14/2020 prednisone 20 mg tablet TAKE TWO TABLETS BY MOUTH EVERY DAY Active Not available tobramycin 0.3 % eye drops INSTILL 2 DROPS INTO THE AFFECTED EYE S THREE TIMES A DAY FOR 7 DAYS Completed 06/10/2021 Notes: L-Theanine 200 mg (takes 2 tabs a day) for mood support Problems Name Status Onset Date Source Nicotine Dependence Active 05/30/2020 History Emotional State Finding Unknown 05/30/2020 History Clinical Finding Unknown 05/30/2020 History General Finding of Observation of Patient Unknown 2019 History Vitamin D Deficiency Active 07/17/2020 History Impacted Tooth Unknown 07/17/2020 History Screening for Malignant Neoplasm of Cervix Unknown 08/21 Procedures Date Name Performed by Tonsilectomy/adenoids Information not av ailable Ligation of Fallopian Tube Information n ot available Notes: Tubal 05/28/2020, Adnoidectomy , T onsillectomy Results Lab Results Date Name Specimen Result Interpretation Description Value Range Status Address 12/23/2020 CBC W/ Auto Diff Normal White Blood Count 6.8 10 4.0-10.[address] [facility]: [address] [place] [address] Normal Red Blood Count 4.91 10 4.00-5.[address] [facility]: [address] [place] [address] Normal Hemoglobin 14.5 g/dL 12.0-15.5 g/dL [facility]: [address] [place] [address] Normal Hematocrit 44.4 % 36.0-47.0 % [facility]: [address] [place] [address] Normal Mean Corpuscular Volume 90.4 fL 80.0 -96.[address] [facility]: [address] [place] [address] Normal Mean Corpuscular Hemoglobin 29.5 pg 27.0-33.[address] [facility]: [address] [place] [address] Normal Mean Corpuscular HGB Conc 32.7 g/dL 32.0-36.5 g/dL [facility]: [address] [facility] Normal Red Cell Distribution Width 13.1 % 1 1.5-14.5 % [facility]: [address] [place] [address] High Platelet Count, Automated 595 10 150 -[address] [facility]: [address] [facility] Normal Neutrophils % 50.4 % 36.0-66.0 % [facility]: [address] [facility] Normal Lymph % 37.8 % 24.0-44.0 % [facility]: [address] [place] [address] High [place] % 8.5 % 2.0-8.0 % Final [facility]: [address] [place] [address] Normal Eos % 2.3 % 0.0-3.0 % [facility]: [address] [place] [address] Normal Baso % 0.9 % 0.0-1.0 % Final [facility]: 0 [facility] Normal Immature Granulocyte % 0.1 % 0-3.0 % [facility]: [address] [place] [address] Normal Nucleated Red Blood Cell % 0.0 % 0- 0 % [facility]: 0 [facility] Normal Neutrophils # 3.4 10 1.5-8.5 10 [facility]: [address] [facility] Normal Lymph # 2.6 10 1.5-5.0 10 [facility]: [address] [facility] Normal [place] # 0.6 10 0.0-0.8 10 [facility]: [address] [place] [address] Normal Eos # 0.2 10 0.0-0.5 10 [facility]: [address] [place] [address] Normal Baso # 0.1 10 0.0-0.2 10 [facility]: [address] [place] [address] 12/23/2020 CMP, Serum or Plasma Normal Glucose, Fastin g 97 mg/dL 70-100 mg/dL [facility]: [address] [facility] Low Blood Urea Nitrogen 6 mg/dL 7-18 mg/ dL [facility]: [address] [facility] Normal Creatinine for GFR 0.87 mg/dL 0.55-1 .30 mg/dL [facility]: [address] [facility] Normal Glomerular Filtration Rate > 60.0 >[address] [facility]: [address] [facility] Normal Sodium Level 138 mEq/L 136-145 mEq/L [facility]: [address] [facility] Normal Potassium Serum 4.3 mEq/L 3.5-5.1 mE q/L [facility]: [address] [facility] Normal Chloride Level 104 mEq/L 98-107 mEq/ L [facility]: [address] [facility] Normal Carbon Dioxide Level 27 mEq/L 21-32 mEq/L [facility]: [address] [facility] Low Anion Gap 7 mEq/L 8-16 mEq/L [facility]: [address] [facility] Normal Calcium Level 10.0 mg/dL 8.5-10.1 mg /dL [facility]: [address] [facility] Normal AST/SGOT 26 U/L 7-37 U/L [facility]: [address] [facility] Normal ALT/SGPT 56 U/L 12-78 U/L [facility]: [address] [facility] Normal Alkaline Phosphatase 93 U/L 45-117 U /L [facility]: [address] [facility] Normal Bilirubin,total 0.6 mg/dL 0.2-1.0 mg /dL [facility]: [address] [facility] Normal Total Protein 7.7 gm/dL 6.4-8.2 gm/d L [facility]: [address] [facility] Normal Albumin 4.0 gm/dL 3.2-5.2 gm/dL Lili l [facility]: [address] [facility] Low Albumin/globulin Ratio 1.1 1.2-2. 2 [facility]: [address] [facility] 12/23/2020 Lipid Panel, Blood High Triglycerides Lev el 173 mg/dL <150 mg/dL Final [facility]: [address] [facility] High Cholesterol Level 255 mg/dL <200 mg/ dL [facility]: [address] [facility] Normal HDL Cholesterol 49 mg/dL >40 mg/dL F inal [facility]: [address] [facility] High LDL Cholesterol 171 mg/dL <100 mg/dL [facility]: [address] [facility] Normal Non-hdl-c 206 mg/dL Final [facility]: [address] [facility] High Cholesterol Risk Ratio 5.204 <5 [facility]: [address] [facility] 12/23/2020 Vitamin D, 25-Hydroxy, Total, Serum Normal Total 25(Oh) Vitamin D 31.6 NG/mL 30.0-100.0 NG/mL [facility]: [address] [facility] 12/23/2020 HIV 1+2 AB + HIV 1 P24 Ag, Qualitative Immunoassay, Serum Normal HIV 1&2 Screen Centaur negative negative [facility]: [address] [facility] 12/11/2020 Istat ABG Normal Istat pH 7.403 units 7.350-7. [address] [facility]: [address] [facility] Normal Istat pCO2 36.4 mmHg 35.0-45.[address] [facility]: [address] [facility] Low Istat pO2 77.0 mmHg 80-105 mmHg Lili l [facility]: [address] [facility] Normal Istat TCO2 24.0 mmol/L 23.0-27.0 mmo l/L [facility]: [address] [facility] Normal Istat HCO3 22.7 mmol/L 22.0-26.0 mmo l/L [facility]: [address] [facility] Normal Istat Base Excess -2.0 mmol/L -2.0-3 .0 mmol/L [facility]: [address] [facility] Normal Istat So2 95 % 95-98 % [facility]: [address] [facility] 08/14/2020 Urinalysis, Dipstick Normal Appearance, Uri ne clear clear [facility]: [address] [facility] Normal Color, Urine yellow yellow [facility]: [address] [facility] Normal pH,urine 6.0 units 5.0-9.0 units [facility]: [address] [facility] Normal Specific [place] Urine Auto 1.017 1 .002-1.035 [facility]: [address] [facility] Normal Protein, Urine Auto negative mg/dL n egative mg/dL [facility]: [address] [facility] Normal Glucose, Urine (UA) Auto negative mg /dL negative mg/dL [facility]: [address] [facility] Normal Ketone, Urine Auto negative mg/dL ne gative mg/dL [facility]: [address] [facility] Normal Urobilinogen, Urine Auto 0.2 mg/dL 0 .0-2.0 mg/dL [facility]: [address] [facility] Normal Bilirubin, Urine Auto negative negat zia [facility]: [address] [facility] Normal Nitrite, Urine Auto negative negativ e [facility]: [address] [facility] Normal Leukocyte Esterase, Urine Auto negat zia negative [facility]: [address] [facility] Normal Blood, Urine Blood negative negative [facility]: [address] [facility] Normal WBC, Urine Auto 1 /hpf 0-3 /hpf [facility]: [address] [facility] Normal RBC, Urine Auto 0 /hpf 0-3 /hpf [facility]: [address] [facility] High Bacteria, Urine Auto 1+ negative [facility]: [address] [facility] Normal Squamous Epithelial Cell Ur AU 2 /hp f 0-6 /hpf Final [facility]: [address] [facility] Normal Hyaline Cast, Urine Auto 0 /lpf 0-1 /lpf Final [facility]: [address] [facility] 08/14/2020 Trichomonas Vaginalis Amp Normal Tr ichomonas Vaginalis (Amp) not detected negative Final [facility] nter: [address] [facility] 08/14/2020 HIV 1+2 AB + HIV 1 P24 Ag, Qualitative Immunoassay, Serum Normal HIV 1&2 Screen Centaur negative negative Final [facility]: [address] [facility] 08/14/2020 Chlamydia & GC DNA Probes Normal Chlamydia DNA Probe negative negative Final [facility]: [address] [facility] Normal GC DNA Probe negative negative Final [facility]: [address] [facility] Past Encounters 06/10/2021 Generalized Anxiety Disorder NAYA [place]: [address] [place] [phone], Ph. 03/20/2021 Ember Davila [facility]: [address] [place] [phone], Ph. 02/12/2021 Disorder of Upper Respiratory System; Acute Serous Otitis Media of Bilateral Ears; Elevated Blood-pressure Reading without Diagnosis of Hypertension Shoshana Gore PA-C: [address] [place] [phone], Ph. 12/23/2020 Ember Davila [facility]: [address] [place] [phone], Ph. 08/14/2020 Mixed Anxiety and Depressive Disorder; Needs Influenza Immunization; Venereal Disease Screening; Hyperlipidemia; Morbid Obesity; Vitamin D Deficiency; Patient Asked to Attend Ember Davila [facility]: [address] [place] [phone], Ph. Social History Tobacco Smoking Status Light Tobacco Smoker (1/4 pack per da y) Vaccine List Vaccine Type COVID-19, mRNA, LNP-S, PF, 100 mcg/0.5 m L dose 05/30/2021 influenza, injectable, quadrivalent, pre servative free 08/14/20200.5 mL Notes: Pt would like Flu vaccine this vi sit Plan of Care Patient Instructions call us in two weeks if concerned about your lab results. Reminders Provider Appointments None recorded. Lab None recorded. Referral None recorded. Procedures None recorded. Surgeries None recorded. Imaging None recorded. Vitals 06/10/2021 10:00AM TELEPSYCH 30 Height Weight BMI 67 in 287 lbs 16 oz 45.1 kg/m2 03/20/2021 09:50AM NURSE Height Blood Pressure 67 in 134/83 mm[Hg] 02/12/2021 09:00AM SAME DAY 20 Height Weight BMI Blood Pressure 67 in 274 lbs 16 oz 43.1 kg/m2 137/93 mm[Hg] 08/14/2020 11:20AM ESTABLISHED [id number] Height Weight BMI Blood Pressure 67 in 289 lbs 2 oz 45.3 kg/m2 129/83 mm[Hg] 05/30/2020 Height Weight BMI Blood Pressure 67 in 291 lbs 4 oz 45.78 kg/m2 121/80 mm[Hg]
--- OUTSIDE RECORDS SUMMARY | 2021-07-29 09:21 | CCD ---
Author Author [facility] Organization [facility] Address Unknown Phone Unavailable Care Team Providers Care Tapper Helper Name Role Phone Ember Davila GEOSPATIAL INFORMATION TECHNOLOGIST Unavailable Unavailable CHARLEE, A. GEOSPATIAL INFORMATION TECHNOLOGIST NITIN Unavailable [phone] CHARLEE, A. GEOSPATIAL INFORMATION TECHNOLOGIST NITIN Unavailable [phone] CHARLEE, A. GEOSPATIAL INFORMATION TECHNOLOGIST NITIN Unavailable [phone] CHARLEE, A. GEOSPATIAL INFORMATION TECHNOLOGIST NITIN Unavailable [phone] CHARLEE, A. GEOSPATIAL INFORMATION TECHNOLOGIST NITIN Unavailable [phone] CHARLEE, A. GEOSPATIAL INFORMATION TECHNOLOGIST NITIN Unavailable [phone] CHARLEE, A. GEOSPATIAL INFORMATION TECHNOLOGIST NITIN Unavailable [phone] CHARLEE, A. GEOSPATIAL INFORMATION TECHNOLOGIST NITIN Unavailable [phone] CHARLEE, A. GEOSPATIAL INFORMATION TECHNOLOGIST NITIN Unavailable [phone] CHARLEE, A. GEOSPATIAL INFORMATION TECHNOLOGIST NITIN Unavailable [phone] CHARLEE, A. GEOSPATIAL INFORMATION TECHNOLOGIST NITIN Unavailable [phone] CHARLEE, A. GEOSPATIAL INFORMATION TECHNOLOGIST NITIN Unavailable [phone] CHARLEE, A. GEOSPATIAL INFORMATION TECHNOLOGIST NITIN Unavailable [phone] CHARLEE, A. GEOSPATIAL INFORMATION TECHNOLOGIST NITIN Unavailable [phone] CHARLEE, A. GEOSPATIAL INFORMATION TECHNOLOGIST NITIN Unavailable [phone] JENNIE, PATRIA SCALLOP RAKER Unavailable Unavailable JENNIE, PATRIA SCALLOP RAKER Unavailable Unavailable JENNIE, PATRIA SCALLOP RAKER Unavailable Unavailable JENNIE, PATRIA SCALLOP RAKER Unavailable Unavailable JENNIE, PATRIA SCALLOP RAKER Unavailable Unavailable JENNIE, PATRIA SCALLOP RAKER Unavailable Unavailable JENNIE, PATRIA SCALLOP RAKER Unavailable Unavailable Giovanni, A Ember GEOSPATIAL INFORMATION TECHNOLOGIST Unavailable Unavailable Giovanni, A Ember GEOSPATIAL INFORMATION TECHNOLOGIST Unavailable Unavailable Giovanni, A Ember GEOSPATIAL INFORMATION TECHNOLOGIST Unavailable Unavailable Giovanni, A Ember GEOSPATIAL INFORMATION TECHNOLOGIST Unavailable Unavailable Giovanni, A Ember GEOSPATIAL INFORMATION TECHNOLOGIST Unavailable Unavailable Giovanni, A Ember GEOSPATIAL INFORMATION TECHNOLOGIST Unavailable Unavailable Giovanni, A Ember GEOSPATIAL INFORMATION TECHNOLOGIST Unavailable Unavailable Giovanni, A Ember GEOSPATIAL INFORMATION TECHNOLOGIST Unavailable Unavailable Giovanni, A Ember GEOSPATIAL INFORMATION TECHNOLOGIST Unavailable Unavailable Giovanni, A Ember GEOSPATIAL INFORMATION TECHNOLOGIST Unavailable Unavailable Giovanni, A Ember GEOSPATIAL INFORMATION TECHNOLOGIST Unavailable Unavailable Giovanni, A Ember GEOSPATIAL INFORMATION TECHNOLOGIST Unavailable Unavailable Giovanni, A Ember GEOSPATIAL INFORMATION TECHNOLOGIST Unavailable Unavailable Giovanni, A Ember GEOSPATIAL INFORMATION TECHNOLOGIST Unavailable Unavailable Giovanni, A Ember GEOSPATIAL INFORMATION TECHNOLOGIST Unavailable Unavailable Giovanni, A Ember GEOSPATIAL INFORMATION TECHNOLOGIST Unavailable Unavailable Giovanni, A Ember GEOSPATIAL INFORMATION TECHNOLOGIST Unavailable Unavailable Giovanni, A Ember GEOSPATIAL INFORMATION TECHNOLOGIST Unavailable Unavailable Giovanni, A Ember GEOSPATIAL INFORMATION TECHNOLOGIST Unavailable Unavailable Giovanni, A Ember GEOSPATIAL INFORMATION TECHNOLOGIST Unavailable Unavailable Giovanni, A Ember GEOSPATIAL INFORMATION TECHNOLOGIST Unavailable Unavailable Giovanni, A Ember GEOSPATIAL INFORMATION TECHNOLOGIST Unavailable Unavailable Giovanni, A Ember GEOSPATIAL INFORMATION TECHNOLOGIST Unavailable Unavailable Giovanni, A Ember GEOSPATIAL INFORMATION TECHNOLOGIST Unavailable Unavailable Giovanni, A Ember GEOSPATIAL INFORMATION TECHNOLOGIST Unavailable Unavailable Giovanni, A Ember GEOSPATIAL INFORMATION TECHNOLOGIST Unavailable Unavailable Giovanni, A Ember GEOSPATIAL INFORMATION TECHNOLOGIST Unavailable Unavailable Giovanni, A Ember GEOSPATIAL INFORMATION TECHNOLOGIST Unavailable Unavailable Giovanni, A Ember GEOSPATIAL INFORMATION TECHNOLOGIST Unavailable Unavailable Giovanni, A Ember GEOSPATIAL INFORMATION TECHNOLOGIST Unavailable Unavailable Giovanni, A Ember GEOSPATIAL INFORMATION TECHNOLOGIST Unavailable Unavailable RING, K AFSANEH PA Unavailable Unavailable RING, K AFSANEH PA Unavailable Unavailable RING, K AFSANEH PA Unavailable Unavailable RING, K AFSANEH PA Unavailable Unavailable RING, K AFSANEH PA Unavailable Unavailable RING, K AFSANEH PA Unavailable Unavailable RING, K AFSANEH PA Unavailable Unavailable RING, K AFSANEH PA Unavailable Unavailable RING, K AFSANEH PA Unavailable Unavailable RING, K AFSANEH PA Unavailable Unavailable RING, K AFSANEH PA Unavailable Unavailable RING, K AFSANEH PA Unavailable Unavailable RING, K AFSANEH PA Unavailable Unavailable RING, K AFSANEH PA Unavailable Unavailable RING, K AFSANEH PA Unavailable Unavailable RING, K AFSANEH PA Unavailable Unavailable RING, K AFSANEH PA Unavailable Unavailable RING, K AFSANEH PA Unavailable Unavailable RING, K AFSANEH PA Unavailable Unavailable RING, K AFSANEH PA Unavailable Unavailable RING, K AFSANEH PA Unavailable Unavailable Rahul Gutierrez MD Unavailable Unavailable Rahul Gutierrez MD Unavailable Unavailable Rahul Gutierrez MD Unavailable Unavailable Rahul Gutierrez MD Unavailable Unavailable Rahul Gutierrez MD Unavailable Unavailable Rahul Gutierrez MD Unavailable Unavailable Rahul Gutierrez MD Unavailable Unavailable Rahul Gutierrez MD Unavailable Unavailable Rahul Gutierrez MD Unavailable Unavailable Rahul Gutierrez MD Unavailable Unavailable Rahul Gutierrez MD Unavailable Unavailable Rahul Gutierrez MD Unavailable Unavailable Rahul Gutierrez MD Unavailable Unavailable Rahul Gutierrez MD Unavailable Unavailable Rahul Gutierrez MD Unavailable Unavailable Rahul Gutierrez MD Unavailable Unavailable Rahul Gutierrez MD Unavailable Unavailable Rahul Gutierrez MD Unavailable Unavailable Rahul Gutierrez MD Unavailable Unavailable Rahul Gutierrez MD Unavailable Unavailable Rahul Gutierrez MD Unavailable Unavailable Rahul Gutierrez MD Unavailable Unavailable Rahul Gutierrez MD Unavailable Unavailable Rahul Gutierrez MD Unavailable Unavailable Rahul Gutierrez MD Unavailable Unavailable Giovanni, A Ember GEOSPATIAL INFORMATION TECHNOLOGIST Unavailable Unavailable Giovanni, A Ember GEOSPATIAL INFORMATION TECHNOLOGIST Unavailable Unavailable Giovanni, A Ember GEOSPATIAL INFORMATION TECHNOLOGIST Unavailable Unavailable Giovanni, A Ember GEOSPATIAL INFORMATION TECHNOLOGIST Unavailable Unavailable Giovanni, A Ember GEOSPATIAL INFORMATION TECHNOLOGIST Unavailable Unavailable Giovanni, A Ember GEOSPATIAL INFORMATION TECHNOLOGIST Unavailable Unavailable Giovanni, A Ember GEOSPATIAL INFORMATION TECHNOLOGIST Unavailable Unavailable Giovanni, A Ember GEOSPATIAL INFORMATION TECHNOLOGIST Unavailable Unavailable Giovanni, A Ember GEOSPATIAL INFORMATION TECHNOLOGIST Unavailable Unavailable Giovanni, A Ember GEOSPATIAL INFORMATION TECHNOLOGIST Unavailable Unavailable Giovanni, A Ember GEOSPATIAL INFORMATION TECHNOLOGIST Unavailable Unavailable Giovanni, A Ember GEOSPATIAL INFORMATION TECHNOLOGIST Unavailable Unavailable Giovanni, A Ember GEOSPATIAL INFORMATION TECHNOLOGIST Unavailable Unavailable Giovanni, A Ember GEOSPATIAL INFORMATION TECHNOLOGIST Unavailable Unavailable Giovanni, A Ember GEOSPATIAL INFORMATION TECHNOLOGIST Unavailable Unavailable Giovanni, A Ember GEOSPATIAL INFORMATION TECHNOLOGIST Unavailable Unavailable Giovanni, A Meber GEOSPATIAL INFORMATION TECHNOLOGIST Unavailable Unavailable Giovanni, A Ember GEOSPATIAL INFORMATION TECHNOLOGIST Unavailable Unavailable Giovanni, A Ember GEOSPATIAL INFORMATION TECHNOLOGIST Unavailable Unavailable Giovanni, A Ember GEOSPATIAL INFORMATION TECHNOLOGIST Unavailable Unavailable Giovanni, A Ember GEOSPATIAL INFORMATION TECHNOLOGIST Unavailable Unavailable Giovanni, A Ember GEOSPATIAL INFORMATION TECHNOLOGIST Unavailable Unavailable Giovanni, A Ember GEOSPATIAL INFORMATION TECHNOLOGIST Unavailable Unavailable Giovanni, A Ember GEOSPATIAL INFORMATION TECHNOLOGIST Unavailable Unavailable Giovanni, A Ember GEOSPATIAL INFORMATION TECHNOLOGIST Unavailable Unavailable Giovanni, A Ember GEOSPATIAL INFORMATION TECHNOLOGIST Unavailable Unavailable Giovanni, A Ember GEOSPATIAL INFORMATION TECHNOLOGIST Unavailable Unavailable Giovanni, A Ember GEOSPATIAL INFORMATION TECHNOLOGIST Unavailable Unavailable Giovanni, A Ember GEOSPATIAL INFORMATION TECHNOLOGIST Unavailable Unavailable Giovanni, A Ember GEOSPATIAL INFORMATION TECHNOLOGIST Unavailable Unavailable Giovanni, A Ember GEOSPATIAL INFORMATION TECHNOLOGIST Unavailable Unavailable Scordo, M Shoshana PA Unavailable Unavailable Scordo, M Shoshana PA Unavailable Unavailable Scordo, M Shoshana PA Unavailable Unavailable Scordo, M Shoshana PA Unavailable Unavailable Scordo, M Shoshana PA Unavailable Unavailable Scordo, M Shoshana PA Unavailable Unavailable Scordo, M Shoshana PA Unavailable Unavailable Scordo, M Shoshana PA Unavailable Unavailable Scordo, M Shoshana PA Unavailable Unavailable Scordo, M Shoshana PA Unavailable Unavailable Scordo, M Shoshana PA Unavailable Unavailable Scordo, M Shoshana PA Unavailable Unavailable Scordo, M Shoshana PA Unavailable Unavailable Scordo, M Shoshana PA Unavailable Unavailable Scordo, M Shoshana PA Unavailable Unavailable Scordo, M Shoshana PA Unavailable Unavailable Scordo, M Shoshana PA Unavailable Unavailable Scordo, M Shoshana PA Unavailable Unavailable Scordo, M Shoshana PA Unavailable Unavailable Scordo, M Shoshana PA Unavailable Unavailable Scordo, M Shoshana PA Unavailable Unavailable Scordo, M Shoshana PA Unavailable Unavailable Scordo, M Shoshana PA Unavailable Unavailable Scordo, M Shoshana PA Unavailable Unavailable Scordo, M Shoshana PA Unavailable Unavailable Scordo, M Shoshana PA Unavailable Unavailable Scordo, M Shoshana PA Unavailable Unavailable Scordo, M Shoshana PA Unavailable Unavailable Scordo, M Shoshana PA Unavailable Unavailable Scordo, M Shoshana PA Unavailable Unavailable Scordo, M Shoshana PA Unavailable Unavailable Scordo, M Shoshana PA Unavailable Unavailable Scordo, M Shoshana PA Unavailable Unavailable Scordo, M Shoshana PA Unavailable Unavailable Scordo, M Shoshana PA Unavailable Unavailable Scordo, M Shoshana PA Unavailable Unavailable Scordo, M Shoshana PA Unavailable Unavailable Scordo, M Shoshana PA Unavailable Unavailable Scordo, M Shoshana PA Unavailable Unavailable Scordo, M Shoshana PA Unavailable Unavailable Scordo, M Shoshana PA Unavailable Unavailable Scordo, M Shoshana PA Unavailable Unavailable Scordo, M Shoshana PA Unavailable Unavailable Scordo, M Shoshana PA Unavailable Unavailable Scordo, M Shoshana PA Unavailable Unavailable Scordo, M Shoshana PA Unavailable Unavailable Scordo, M Shoshana PA Unavailable Unavailable Re-disclosure Warning The records that you are about to access may contain information from federally-assisted alcohol or drug abuse programs. If such information is present, then the following federally mandated warning applies: This information has been disclosed to you from records protected by federal confidentiality rules (42 CFR part 2). The federal rules prohibit you from making any further disclosure of this information unless further disclosure is expressly permitted by the written consent of the person to whom it pertains or as otherwise permitted by 42 CFR part 2. A general authorization for the release of medical or other information is NOT sufficient for this purpose. The Federal rules restrict any use of the information to criminally investigate or prosecute any alcohol or drug abuse patient.The records that you are about to access may contain highly sensitive health information, the redisclosure of which is protected by Article 27-F of the [facility] Public Health law. If you continue you may have access to information: Regarding HIV / AIDS; Provided by facilities licensed or operated by the [facility] Office of Mental Health; or Provided by the [facility] Office for People With Developmental Disabilities. If such information is present, then the following [facility] mandated warning applies: This information has been disclosed to you from confidential records which are protected by state law. State law prohibits you from making any further disclosure of this information without the specific written consent of the person to whom it pertains, or as otherwise permitted by law. Any unauthorized further disclosure in violation of state law may result in a fine or custodial sentence or both. A general authorization for the release of medical or other information is NOT sufficient authorization for further disc losure. Allergies and Adverse Reactions Type Description Substance Reaction Status Data Source(s ) Allergy to substance Allergy to substance Bactrim [facility] ([facility]) Allergy to substance Allergy to substance Bactrim [facility] ([facility]) Allergy to substance Allergy to substance Bactrim [facility] ([facility]) Allergy to substance Allergy to substance Bactrim [place] ([facility]) Allergy to substance Allergy to substance Bactrim [place] ([facility]) Drug allergy BACTRIM BACT[facility] Family History Family Member Name Family Member Gender Family Member Status Date o f Status Description Data Source(s) Unknown Unknown Problem [facility] Unknown Unknown Problem [facility] ([facility] Encounters Encounter Providers Location Date Indications Data Source(s ) Outpatient Attender: NITIN DESHPANDE 07/11 10:02:09 AM EDT - 07/24/2021 10:34:08 AM EDT [facility] ([facility] ) Patria Schneider NPP: [address] [place] [address], Ph. Attender: PATRIA SCHNEIDER NP [facility] Medical 06/10/2021 12:00:00 AM EDT [facility]) OCTAVIA PadillaBC: [address], [place] [address], Ph. Attender: Ember MEDINA [facility] Medical 03/20/2021 12:00:00 AM EDT [facility]) OCTAVIA PadillaBC: [address], [place] [address], Ph. Attender: Ember MEDINA [facility] Medical 03/20/2021 12:00:00 AM EDT [place] ([facility]) Shoshana Gore PA-C: [address], [place] [address], Ph. Attender: Shoshana JAIN [facility] Medical 02/12/2021 12:00:00 AM EDT [place] ([facility]) Shoshana Gore PA-C: [address], [place] [address], Ph. Attender: Shoshana JAIN [facility] Medical 02/12/2021 12:00:00 AM EDT [place] ([facility]) Shoshana Gore PA-C: [address], [facility] [place] [address], Ph. Attender: Shoshana JAIN [facility] Medical 02/12/2021 12:00:00 AM EDT [place] ([facility]) OCTAVIA PadillaBC: [address], [place] [address], Ph. Attender: Ember Davila [facility] Medical 12/23/2020 12:00:00 AM EDT [place] ([facility]) NANCY Padilla: [address], [place] [address], Ph. Attender: Ember Davila [facility] Medical 12/23/2020 12:00:00 AM EDT [place] ([facility]) OCTAVIA PadillaBC: [address], [place] [address], Ph. Attender: Ember Davila [facility] Medical 12/23/2020 12:00:00 AM EDT [place] ([facility]) OCTAVIA Padilla: [address], [place] [address], Ph. Attender: Ember Davila [facility] Medical 12/23/2020 12:00:00 AM EDT [facility] ([facility]) TeleMedicine Phone E/M by Phys 5-10 Min [address] [place] [address] 12/16/2020 12:00:00 AM EST eCW1 ([facility]) TeleMedicine Phone E/M by Phys 11-20 Min [address] [place] [address] 12/13/2020 12:00:00 AM EST eCW1 ([facility]) Outpatient Attender: AFSANEH Puckett [facility] 12/05/2020 04:15:00 PM EST [facility] ([facility]) Outpatient Attender: Estefani Gutierrez MD 0 12/01/2020 12:06:12 PM EST - 12/01/2020 12:25:33 PM EST [facility] ([facility]) Outpatient Attender: CAROL MEDINA 08/15/2020 10:47:[address] [facility] OCTAVIA PadillaBC: [address] [place] [address], Ph. Attender: Ember Davila [facility] Medical 08/14/2020 12:00:00 AM EST [place] ([facility]) OCTAVIA Padilla: [address], [place] [address], Ph. Attender: Ember Davila [facility] Medical 08/14/2020 12:00:00 AM EST [facility] ([facility]) OCTAVIA PadillaBC: [address], [place] [address], Ph. Attender: Ember MEDINA [facility] Medical 08/14/2020 12:00:00 AM EST [place] ([facility]) CAROL Padilla-BC: [address] [place] [address], Ph. [facility]: [facility] 08/14/2020 12:00:00 AM EST [place] ([facility]) CAROL Padilla-BC: [address] [place] [address], Ph. [facility]: [facility] 08/14/2020 12:00:00 AM EST [facility] ([facility]) Outpatient Attender: CAROL MEDINA 07/27/2020 10:22:[address] [facility] Outpatient Attender: Ember MEDINA 07/19/2020 11:5 2:[address] [facility] Outpatient Attender: CAROL MEDINA 07/19/2020 11:10:[address] [facility] Outpatient Attender: Ember MEDINA 07/17/2020 10:1 3:[address] [facility] Outpatient Attender: CAROL MEDINA 07/17/2020 08:30:02 A M EDT [facility] Outpatient Attender: Ember MEDINA 07/17/2020 08:2 9:[address] [facility] Outpatient Attender: CAROL LYNN 07/17/2020 07:47:[address] [facility] Outpatient Attender: CAROL MEDINA 07/17/2020 07:45:[address] [facility] Outpatient Attender: Ember MEDINA [facility] 07/13/2020 07:4 2:[address] [facility] Outpatient Attender: CAROL MEDINA [facility] 07/13/2020 07:42:[address] [facility] Outpatient Attender: Ember Davila [facility] 07/13/2020 11:1 1:[address] [facility] Outpatient Attender: CAROL Davila [facility] 07/11/2020 03:17:[address] [facility] Outpatient Attender: CAROL Davila [facility] 05/31/2020 03:21:[address] [facility] Outpatient [facility] 05/31/2020 02:36:[address] [facility] Outpatient [facility] 05/31/2020 12:00:[address] [facility] Outpatient [facility] 05/30/2020 01:14:[address] [facility] Outpatient [facility] 05/30/2020 01:14:[address] [facility] 05/30/2020 11:24:[address] [facility] Immunizations Vaccine Date Status Description Data Source(s) COVID-19 VACC, MRNA(PFIZER)/PF 06/20/2021 12:00:00 AM EDT completed [facility] COVID-19 VACCINE Pfizer 06/20/2021 12:00:00 AM EDT completed [facility] Vaccine Series Complete: YESThis Data wa s Submitted to [facility]. COVID-19, mRNA, LNP-S, PF, 100 mcg/0.5 mL dose 05/30/2021 12 :00:00 AM EDT completed 05/30/2021 [facility] ([facility]) COVID-19 VACCINE Pfizer 05/30/2021 12:00:00 AM EDT completed [facility] Vaccine Series Complete: NOThis Data was Submitted to [facility]. COVID-19 VACC, MRNA(PFIZER)/PF 05/30/2021 12:00:00 AM EDT completed [facility] New in 2011. IIV4 08/14/2020 01:43:00 PM EST completed 0.5 mL [facility] ([facility]) New in 2011. IIV4 08/14/2020 01:43:00 PM EST completed 0.5 mL [facility] ([facility]) New in 2011. IIV4 08/14/2020 01:43:00 PM EST completed .5 mL [facility] ([facility]) New in 2011. IIV4 08/14/2020 01:43:00 PM EST completed .5 mL [facility] ([facility]) New in 2011. IIV4 08/14/2020 01:43:00 PM EST completed .5 mL [facility] ([facility]) Medications Medication Brand Name Start Date Product Form Dose Route Admi nistrative Instructions Pharmacy Instructions Status Indications Reaction Description Data Source(s) 20 mg 06/10/2021 12:00:00 AM EDT capsule 30 TAKE ONE CAPSULE BY MOUTH EVERY DAY TAKE ONE CAPSULE BY MOUTH EVERY DAY SOLD: 06/10/2021 [facility] 1 mg 06/10/2021 12:00:00 AM EDT tablet 90 TAKE ONE TABLET BY MOUTH THREE TIMES A DAY MAXIMUM DAILY DOSE = 3 TAKE ONE TABLET BY MOUTH THREE TIMES A D AY MAXIMUM DAILY DOSE = 3 SOLD: 06/10/2021 [facility] 50 mcg/actuation 02/12/2021 12:00:00 AM EDT spray,suspension 16 SPRAY 1 SPRAY IN EACH NOSTRIL ONCE A DAY SPRAY 1 SPRAY IN EACH NOSTRIL ONCE A DAY SOLD: 02/12/2021 [facility] 20 mg 02/12/2021 12:00:00 AM EDT tablet 10 TAKE TWO TABLETS BY MOUTH EVERY DAY TAKE TWO TABLETS BY MOUTH EVERY DAY SOLD: 02/12/2021 [facility] 4 mg 02/11/2021 12:00:00 AM EDT tablet,disintegrating 1 4 DISSOLVE 1 TABLET IN THE MOUTH EVERY 8 HOURS NEEDED FOR NAUSEA DISSOLVE 1 TABLET IN THE MOUTH EVERY 8 HOURS NEEDED FOR NAUSEA SOLD: 02/12/2021 [facility] INHALER, ASSIST DEVICES 12/12/2020 12:00:00 AM EST spacer 1 USE DIRECTED USE DIRECTED SOLD: 12/12/2020 [facility] 1 mg 12/12/2020 12:00:00 AM EST tablet 15 TAKE ONE TABLET BY MOUTH THREE TIMES A DAY NEEDED FOR ANXIETY MAXIMUM DAILY DOSE = 3 TAKE ONE TABLET BY MOUTH THREE TIMES A DAY NEEDED FOR ANXIETY MAXIMUM DAILY DOSE = 3 SOLD: 12/12/2020 [facility] 90 mcg/actuation 12/12/2020 12:00:00 AM EST HFA aerosol inha ler 8 INHALE 2 PUFFS BY MOUTH EVERY 4-6 HOURS NEEDED FOR WHEEZING INHALE 2 PUFFS BY MOUTH EVERY 4-6 HOURS NEEDED FOR WHEEZING SOLD: 12/12/2020 [facility] benzonatate 100 MG Oral Capsule BENZONATATE 12/12/2020 12:00:00 AM EST capsule 30 TAKE ONE CAPSULE BY MOUTH THREE TIMES A DAY FOR COUGH TAKE ONE CAPSULE BY MOUTH THREE TIMES A DAY FOR COUGH SOLD: 12/12/2020 [facility] 0.3 % 10/10/2020 12:00:00 AM EST drops 5 INSTILL 2 DROPS INTO THE AFFECTED EYE(S) THREE TIMES A DAY FOR 7 DAYS INSTILL 2 DROPS INTO THE AFFECTED EYE(S) THREE TIMES A DAY FOR 7 DAYS SOLD: 10/10/2020 [facility] 0.5 % 10/07/2020 12:00:00 AM EST drops 5 INSTILL 1 DROP IN THE AFFECTED EYE(S) THREE TIMES A DAY FOR 5 DAYS INSTILL 1 DROP IN THE AFFECTED EYE(S) TH REE TIMES A DAY FOR 5 DAYS SOLD: 10/07/2020 [facility] 20 mg 08/15/2020 12:00:00 AM EST capsule 30 TAKE ONE CAPSULE BY MOUTH EVERY DAY TAKE ONE CAPSULE BY MOUTH EVERY DAY SOLD: 08/19/2020 [facility] 20 mg 08/15/2020 12:00:00 AM EST capsule 30 TAKE ONE CAPSULE BY MOUTH EVERY DAY TAKE ONE CAPSULE BY MOUTH EVERY DAY SOLD: 03/24/2021 [facility] 20 mg 08/15/2020 12:00:00 AM EST capsule 30 TAKE ONE CAPSULE BY MOUTH EVERY DAY TAKE ONE CAPSULE BY MOUTH EVERY DAY SOLD: 11/02/2020 [facility] 20 mg 08/15/2020 12:00:00 AM EST capsule 30 TAKE ONE CAPSULE BY MOUTH EVERY DAY TAKE ONE CAPSULE BY MOUTH EVERY DAY SOLD: 01/05/2021 [facility] 1,250 mcg (50,000 unit) 07/28/2020 12:00:00 AM EDT capsule 4 TAKE ONE CAPSULE BY MOUTH WEEKLY FOR 12 WEEKS THEN TAKE 1000UNITS DAILY TAKE ONE CAPSULE BY MOUTH WEEKLY FOR 12 WEEKS THEN TAKE 1000UNITS DAILY SOLD: 07/31/2020 [facility] 20 mg 12/02/2019 12:00:00 AM EST capsule 30 TAKE ONE CAPSULE BY MOUTH EVERY DAY TAKE ONE CAPSULE BY MOUTH EVERY DAY SOLD: 07/03/2020 [facility] azelastine 137 mcg (0.1 %) nasal spray aerosol [id number] completed azelastine hydrochloride 0.137 MG/ACTUAT Metered Dose Nasal [place] ([facility]) cefdinir 300 MG Oral Capsule cefdinir 30 0 mg capsule TAKE ONE CAPSULE BY MOUTH TWICE A DAY FOR 10 DAYS cefdinir 300 mg capsule TAKE ONE CAPSULE BY MOUTH TWICE A DAY FOR 10 DAYS completed cefd inir 300 MG Oral Capsule [place] ([facility]) Azithromycin 250 MG Oral Tablet azithrom ycin 250 mg tablet TAKE TWO TABLETS BY MOUTH AT ONCE ON THE FIRST DAY THEN TAKE ONE DAILY THEREAFTER azithromycin 250 mg tablet TAKE TWO TABLETS BY MOUTH AT ONCE ON THE FIRST DAY THEN TAKE ONE DAILY THEREAFTER completed azithromyci n 250 MG Oral Tablet [place] ([facility]) cefdinir 300 MG Oral Capsule cefdinir 30 0 mg capsule TAKE ONE CAPSULE BY MOUTH TWICE A DAY FOR 10 DAYS cefdinir 300 mg capsule TAKE ONE CAPSULE BY MOUTH TWICE A DAY FOR 10 DAYS completed cefd inir 300 MG Oral Capsule [place] ([facility]) Azithromycin 250 MG Oral Tablet azithrom ycin 250 mg tablet TAKE TWO TABLETS BY MOUTH AT ONCE ON THE FIRST DAY THEN TAKE ONE DAILY THEREAFTER azithromycin 250 mg tablet TAKE TWO TABLETS BY MOUTH AT ONCE ON THE FIRST DAY THEN TAKE ONE DAILY THEREAFTER completed azithromyci n 250 MG Oral Tablet [place] ([facility]) Ibuprofen 600 MG Oral Tablet ibuprofen 6 00 mg tablet TAKE ONE TABLET BY MOUTH EVERY 6 HOURS NEEDED FOR PAIN ibuprofen 600 mg tablet TAKE ONE TABLET BY MOUTH EVERY 6 HOURS NEEDED FOR PAIN completed ibuprofen 600 MG Oral Tablet [place] ([facility]) Oseltamivir 75 MG Oral Capsule oseltamivir 75 mg capsu le oseltamivir 75 mg capsule completed oseltamivir 75 MG Oral Capsule [facility]) Oseltamivir 75 MG Oral Capsule oseltamivir 75 mg capsu le oseltamivir 75 mg capsule completed oseltamivir 75 MG Oral Capsule [facility]) azelastine 137 mcg (0.1 %) nasal spray aerosol [id number] completed azelastine hydrochloride 0.137 MG/ACTUAT Metered Dose Nasal [place] [facility]) cefdinir 300 MG Oral Capsule cefdinir 30 0 mg capsule TAKE ONE CAPSULE BY MOUTH TWICE A DAY FOR 10 DAYS cefdinir 300 mg capsule TAKE ONE CAPSULE BY MOUTH TWICE A DAY FOR 10 DAYS completed cefd inir 300 MG Oral Capsule [place] ([facility]) [place] 28 0.15 mg-0.03 mg tablet [id number] completed [place] 28 0.15 mg-0.03 mg tablet [place] ([facility]) Ondansetron 4 MG Disintegrating Oral Tab let ondansetron 4 mg disintegrating tablet ondansetron 4 mg disintegrating tablet completed ondansetron 4 MG Disintegrating Oral Tablet [place] ([facility]) Ibuprofen 600 MG Oral Tablet ibuprofen 6 00 mg tablet TAKE ONE TABLET BY MOUTH EVERY 6 HOURS NEEDED FOR PAIN ibuprofen 600 mg tablet TAKE ONE TABLET BY MOUTH EVERY 6 HOURS NEEDED FOR PAIN completed ibuprofen 600 MG Oral Tablet [place] ([facility]) Loratadine 10 MG Oral Tablet loratadine 10 mg tablet TAKE ONE TABLET BY MOUTH EVERY DAY NEEDED FOR ALLERGY SYMPTOMS loratadine 10 mg tablet TAKE ONE TABLET BY MOUTH EVERY DAY NEEDED FOR ALLERGY SYMPTOMS completed loratadine 10 MG Oral Tablet [place] ([facility]) albuterol sulfate HFA 90 mcg/actuation a erosol inhaler INHALE 2 PUFFS BY MOUTH EVERY 4 6 HOURS NEEDED FOR WHEEZING [id number] completed [id number] 200 ACTUAT albuterol 0.09 MG/ACTUAT Metered Dose In[place] ([facility]) Ketorolac Tromethamine 5 MG/ML Ophthalmi c Solution ketorolac 0.5 % eye drops INSTILL 1 DROP IN THE AFFECTED EYE S THREE TIMES A DAY FOR 5 DAYS ketorolac 0.5 % eye drops INSTILL 1 DROP IN THE AFFECTED EYE S THREE TIMES A DAY FOR 5 DAYS completed ketorolac trom ethamine 5 MG/ML Ophthalmic Solution [place] ([facility]) azelastine 137 mcg (0.1 %) nasal spray aerosol [id number] completed azelastine hydrochloride 0.137 MG/ACTUAT Metered Dose Nasal [place] ([facility]) Loratadine 10 MG Oral Tablet loratadine 10 mg tablet TAKE ONE TABLET BY MOUTH EVERY DAY NEEDED FOR ALLERGY SYMPTOMS loratadine 10 mg tablet TAKE ONE TABLET BY MOUTH EVERY DAY NEEDED FOR ALLERGY SYMPTOMS completed loratadine 10 MG Oral Tablet [place] ([facility]) Acetaminophen 500 MG Oral Tablet acetaminophen 500 mg tablet acetaminophen 500 mg tablet completed acetaminophe n 500 MG Oral Tablet [place] ([facility]) Acetaminophen 325 MG / Oxycodone Hydroch loride 5 MG Oral Tablet oxycodone- acetaminophen 5 mg-325 mg tablet oxycodone-acetaminophen 5 mg-325 mg tablet completed acetaminop hen 325 MG / oxycodone hydrochloride 5 MG Oral Tablet [place] ([facility]) Acetaminophen 500 MG Oral Tablet acetaminophen 500 mg tablet acetaminophen 500 mg tablet completed acetaminophe n 500 MG Oral Tablet [place] ([facility]) Azithromycin 250 MG Oral Tablet azithrom ycin 250 mg tablet TAKE TWO TABLETS BY MOUTH AT ONCE ON THE FIRST DAY THEN TAKE ONE DAILY THEREAFTER azithromycin 250 mg tablet TAKE TWO TABLETS BY MOUTH AT ONCE ON THE FIRST DAY THEN TAKE ONE DAILY THEREAFTER completed azithromyci n 250 MG Oral Tablet [place] ([facility]) cefdinir 300 MG Oral Capsule cefdinir 30 0 mg capsule TAKE ONE CAPSULE BY MOUTH TWICE A DAY FOR 10 DAYS cefdinir 300 mg capsule TAKE ONE CAPSULE BY MOUTH TWICE A DAY FOR 10 DAYS completed cefd inir 300 MG Oral Capsule [place] ([facility]) [facility] spacer USE DIRECTED [id number] completed [facility] spacer [place] ([facility]) Azithromycin 250 MG Oral Tablet azithrom ycin 250 mg tablet TAKE TWO TABLETS BY MOUTH AT ONCE ON THE FIRST DAY THEN TAKE ONE DAILY THEREAFTER azithromycin 250 mg tablet TAKE TWO TABLETS BY MOUTH AT ONCE ON THE FIRST DAY THEN TAKE ONE DAILY THEREAFTER completed azithromyci n 250 MG Oral Tablet [place] ([facility]) Acetaminophen 325 MG / Oxycodone Hydroch loride 5 MG Oral Tablet oxycodone- acetaminophen 5 mg-325 mg tablet oxycodone-acetaminophen 5 mg-325 mg tablet completed acetaminop hen 325 MG / oxycodone hydrochloride 5 MG Oral Tablet [place] ([facility]) Acetaminophen 325 MG / Oxycodone Hydroch loride 5 MG Oral Tablet oxycodone- acetaminophen 5 mg-325 mg tablet oxycodone-acetaminophen 5 mg-325 mg tablet completed acetaminop hen 325 MG / oxycodone hydrochloride 5 MG Oral Tablet [place] ([facility]) Loratadine 10 MG Oral Tablet loratadine 10 mg tablet TAKE ONE TABLET BY MOUTH EVERY DAY NEEDED FOR ALLERGY SYMPTOMS loratadine 10 mg tablet TAKE ONE TABLET BY MOUTH EVERY DAY NEEDED FOR ALLERGY SYMPTOMS completed loratadine 10 MG Oral Tablet [place] ([facility]) azelastine 137 mcg (0.1 %) nasal spray aerosol [id number] completed azelastine hydrochloride 0.137 MG/ACTUAT Metered Dose Nasal [place] ([facility]) Loratadine 10 MG Oral Tablet loratadine 10 mg tablet TAKE ONE TABLET BY MOUTH EVERY DAY NEEDED FOR ALLERGY SYMPTOMS loratadine 10 mg tablet TAKE ONE TABLET BY MOUTH EVERY DAY NEEDED FOR ALLERGY SYMPTOMS completed loratadine 10 MG Oral Tablet [place] ([facility]) Tobramycin 3 MG/ML Ophthalmic Solution t obramycin 0.3 % eye drops INSTILL 2 DROPS INTO THE AFFECTED EYE S THREE TIMES A DAY FOR 7 DAYS tobramycin 0.3 % eye drops INSTILL 2 DROPS INTO THE AFFECTED EYE S THREE TIMES A DAY FOR 7 DAYS completed tobramycin 3 MG/ML Oph thalmic Solution [place] ([facility]) Oseltamivir 75 MG Oral Capsule oseltamivir 75 mg capsu le oseltamivir 75 mg capsule completed oseltamivir 75 MG Oral Capsule [place] ([facility]) Jennifer 28 0.15 mg-0.03 mg tablet [id number] completed [place] 28 0.15 mg-0.03 mg tablet [place] ([facility]) Alprazolam 0.5 MG Oral Tablet alprazolam 0.5 mg tablet alpra zolam 0.5 mg tablet completed alprazolam 0.5 MG Oral Tablet [place] ([facility]) Jennifer 28 0.15 mg-0.03 mg tablet [id number] completed [place] 28 0.15 mg-0.03 mg tablet [place] ([facility]) benzonatate 100 MG Oral Capsule benzonat ate 100 mg capsule TAKE ONE CAPSULE BY MOUTH THREE TIMES A DAY FOR COUGH benzonatate 100 mg capsule TAKE ONE CAPS ULE BY MOUTH THREE TIMES A DAY FOR COUGH comp leted benzonatate 100 MG Oral Capsule [place] ([facility]) benzonatate 100 MG Oral Capsule benzonat ate 100 mg capsule TAKE ONE CAPSULE BY MOUTH THREE TIMES A DAY FOR COUGH benzonatate 100 mg capsule TAKE ONE CAPS ULE BY MOUTH THREE TIMES A DAY FOR COUGH comp leted benzonatate 100 MG Oral Capsule [place] ([facility]) Ondansetron 4 MG Disintegrating Oral Tab let ondansetron 4 mg disintegrating tablet ondansetron 4 mg disintegrating tablet completed ondansetron 4 MG Disintegrating Oral Tablet [place] ([facility]) Oseltamivir 75 MG Oral Capsule oseltamivir 75 mg capsu le oseltamivir 75 mg capsule completed oseltamivir 75 MG Oral Capsule [place] ([facility]) cefdinir 300 MG Oral Capsule cefdinir 30 0 mg capsule TAKE ONE CAPSULE BY MOUTH TWICE A DAY FOR 10 DAYS cefdinir 300 mg capsule TAKE ONE CAPSULE BY MOUTH TWICE A DAY FOR 10 DAYS completed cefd inir 300 MG Oral Capsule [place] ([facility]) Loratadine 10 MG Oral Tablet loratadine 10 mg tablet TAKE ONE TABLET BY MOUTH EVERY DAY NEEDED FOR ALLERGY SYMPTOMS loratadine 10 mg tablet TAKE ONE TABLET BY MOUTH EVERY DAY NEEDED FOR ALLERGY SYMPTOMS completed loratadine 10 MG Oral Tablet [place] ([facility]) Acetaminophen 500 MG Oral Tablet acetaminophen 500 mg tablet acetaminophen 500 mg tablet completed acetaminophe n 500 MG Oral Tablet [place] ([facility]) Jennifer 28 0.15 mg-0.03 mg tablet [id number] completed [place] 28 0.15 mg-0.03 mg tablet [place] ([facility]) Azithromycin 250 MG Oral Tablet azithrom ycin 250 mg tablet TAKE TWO TABLETS BY MOUTH AT ONCE ON THE FIRST DAY THEN TAKE ONE DAILY THEREAFTER azithromycin 250 mg tablet TAKE TWO TABLETS BY MOUTH AT ONCE ON THE FIRST DAY THEN TAKE ONE DAILY THEREAFTER completed azithromyci n 250 MG Oral Tablet [place] ([facility]) Ibuprofen 600 MG Oral Tablet ibuprofen 6 00 mg tablet TAKE ONE TABLET BY MOUTH EVERY 6 HOURS NEEDED FOR PAIN ibuprofen 600 mg tablet TAKE ONE TABLET BY MOUTH EVERY 6 HOURS NEEDED FOR PAIN completed ibuprofen 600 MG Oral Tablet [place] ([facility]) Ibuprofen 600 MG Oral Tablet ibuprofen 6 00 mg tablet TAKE ONE TABLET BY MOUTH EVERY 6 HOURS NEEDED FOR PAIN ibuprofen 600 mg tablet TAKE ONE TABLET BY MOUTH EVERY 6 HOURS NEEDED FOR PAIN completed ibuprofen 600 MG Oral Tablet [place] ([facility]) albuterol sulfate HFA 90 mcg/actuation a erosol inhaler INHALE 2 PUFFS BY MOUTH EVERY 4 6 HOURS NEEDED FOR WHEEZING [id number] completed [id number] 200 ACTUAT albuterol 0.09 MG/ACTUAT Metered Dose Inhaler [place] ([facility]) Acetaminophen 500 MG Oral Tablet acetaminophen 500 mg tablet acetaminophen 500 mg tablet completed acetaminophe n 500 MG Oral Tablet [place] ([facility]) benzonatate 100 MG Oral Capsule benzonat ate 100 mg capsule TAKE ONE CAPSULE BY MOUTH THREE TIMES A DAY FOR COUGH benzonatate 100 mg capsule TAKE ONE CAPS ULE BY MOUTH THREE TIMES A DAY FOR COUGH comp leted benzonatate 100 MG Oral Capsule [place] ([facility]) Ondansetron 4 MG Disintegrating Oral Tab let ondansetron 4 mg disintegrating tablet ondansetron 4 mg disintegrating tablet completed ondansetron 4 MG Disintegrating Oral Tablet [place] ([facility]) albuterol sulfate HFA 90 mcg/actuation a erosol inhaler INHALE 2 PUFFS BY MOUTH EVERY 4 6 HOURS NEEDED FOR WHEEZING [id number] completed [id number] 200 ACTUAT albuterol 0.09 MG/ACTUAT Metered Dose Inhaler [place] ([facility]) Acetaminophen 500 MG Oral Tablet acetaminophen 500 mg tablet acetaminophen 500 mg tablet completed acetaminophe n 500 MG Oral Tablet [place] ([facility]) Acetaminophen 325 MG / Oxycodone Hydroch loride 5 MG Oral Tablet oxycodone- acetaminophen 5 mg-325 mg tablet oxycodone-acetaminophen 5 mg-325 mg tablet completed acetaminop hen 325 MG / oxycodone hydrochloride 5 MG Oral Tablet [place] ([facility]) Jennifer 28 0.15 mg-0.03 mg tablet [id number] completed [place] 28 0.15 mg-0.03 mg tablet [place] ([facility]) Acetaminophen 325 MG / Oxycodone Hydroch loride 5 MG Oral Tablet oxycodone- acetaminophen 5 mg-325 mg tablet oxycodone-acetaminophen 5 mg-325 mg tablet completed acetaminop hen 325 MG / oxycodone hydrochloride 5 MG Oral Tablet [place] ([facility]) Ibuprofen 600 MG Oral Tablet ibuprofen 6 00 mg tablet TAKE ONE TABLET BY MOUTH EVERY 6 HOURS NEEDED FOR PAIN ibuprofen 600 mg tablet TAKE ONE TABLET BY MOUTH EVERY 6 HOURS NEEDED FOR PAIN completed ibuprofen 600 MG Oral Tablet [place] ([facility]) azelastine 137 mcg (0.1 %) nasal spray aerosol [id number] completed azelastine hydrochloride 0.137 MG/ACTUAT Metered Dose Nasal [place] ([facility]) Oseltamivir 75 MG Oral Capsule oseltamivir 75 mg capsu le oseltamivir 75 mg capsule completed oseltamivir 75 MG Oral Capsule [place] ([facility]) Insurance Providers Payer name Policy type / Coverage type Policy ID Covered green party ID Covered green party's relationship to paulson Policy Paulson Plan Information [facility] Health Maintenance Organization ([facility] [id number] Self [id number] [facility] [employer] Maintenance Organization ([facility]) [id number] Self [id number] [facility] I [id number] Self [id number] [facility] [employer]. [id number] Self [id number] Managed Care - [facility] Community Plan P [id number] S [id number] [employer] emp [id number] Employee [id number] Medicaid S [id number] S [id number] [facility] [place] [facility] [id number] SP [id number] Medicaid S UNAVAILABLE S UNAVAILA BLE Managed Care - [facility] Community Plan P [id number] S [id number] [facility] O [id number] S [id number] [facility] [place] [id number] SP [id number] Community [facility] Commercial [id number] Self [id number] SELF PAY ONLY [id number] SP [id number] [facility] Health Maintenance Organization (HMO) [id number] Self [id number] Problems, Conditions, and Diagnoses Code Display Name Description Problem Type Effective Dates Data Source(s) [id number] Screening for malignant neoplasm of cerv ix Screening for Malignant Neoplasm of Cervix Problem 08/21/2020 12:00:00 AM EST - 02/12/2021 12:00:00 AM EDT [place] ([facility]) [id number] Screening for malignant neoplasm of cerv ix Screening for Malignant Neoplasm of Cervix Problem 08/21/2020 12:00:00 AM EST - 02/12/2021 12:00:00 AM EDT [place] ([facility]) [id number] Screening for malignant neoplasm of cerv ix Screening for Malignant Neoplasm of Cervix Problem 08/21/2020 12:00:00 AM EST - 02/12/2021 12:00:00 AM EDT [place] ([facility]) [id number] Screening for malignant neoplasm of cerv ix Screening for Malignant Neoplasm of Cervix Problem 08/21/2020 12:00:00 AM EST [place] ([facility]) 268.9 vitamin D deficiency vitamin D deficiency 07/27 10:21:[address] [facility] 520.6 [place] teeth impaction [place] teeth impaction 07/17/2020 08:28:[address] [facility] [id number] Impacted tooth Impacted Tooth Problem 07/17/2020 12:00:00 AM EDT - 02/12/2021 12:00:00 AM EDT [place] ([facility]) 61285347 Vitamin D deficiency Vitamin D Deficiency Problem 07/17/2020 12:00:00 AM EDT [place] ([facility]) [id number] Impacted tooth Impacted Tooth Problem 07/17/2020 12:00:00 AM EDT - 02/12/2021 12:00:00 AM EDT [place] ([facility]) 61970205 Vitamin D deficiency Vitamin D Deficiency Problem 07/17/2020 12:00:00 AM EDT [place] ([facility]) [id number] Impacted tooth Impacted Tooth Problem 07/17/2020 12:00:00 AM EDT - 02/12/2021 12:00:00 AM EDT [place] ([facility]) 39228066 Vitamin D deficiency Vitamin D Deficiency Problem 07/17/2020 12:00:00 AM EDT [place] ([facility]) [id number] Impacted tooth Impacted Tooth Problem 07/17/2020 12:00: 00 AM EDT [place] ([facility]) [id number] Vitamin D deficiency Vitamin D Deficiency Problem 07/17/2020 12:00:00 AM EDT [place] ([facility]) [id number] Obesity, unspecified Obesity, unspecified 05/30/2020 01:13:[address] [facility] F17.200 Nicotine dependence, unspecified, uncomp licated Nicotine dependence, unspecified, uncomplicated 05/30/2020 01:13:[address] [facility] V70.0 Health Screening Health Screening 05/30/2020 01 :13:[address] [facility] 300.09 Anxiety depression Anxiety depression 0 01:13:[address] [facility] [id number] General finding of observation of patien t General Finding of Observation of Patient Problem 05/30/2020 12:00:00 AM EDT - 02/12/2021 12:00:00 AM EDT [place] ([facility]) [id number] Clinical finding Clinical Finding Problem 020 12:00:00 AM EDT - 02/12/2021 12:00:00 AM EDT [place] ([facility]) [id number] Emotional state finding Emotional State Finding Proble m 05/30/2020 12:00:00 AM EDT - 02/12/2021 12:00:00 AM EDT [place] ([facility]) [id number] Nicotine dependence Nicotine Dependence Problem 0 05/30/2020 12:00:00 AM EDT [place] ([facility]) [id number] General finding of observation of patien t General Finding of Observation of Patient Problem 05/30/2020 12:00:00 AM EDT - 02/12/2021 12:00:00 AM EDT [place] ([facility]) [id number] Clinical finding Clinical Finding Problem 020 12:00:00 AM EDT - 02/12/2021 12:00:00 AM EDT [place] ([facility]) [id number] Emotional state finding Emotional State Finding Proble m 05/30/2020 12:00:00 AM EDT - 02/12/2021 12:00:00 AM EDT [place] ([facility]) [id number] Nicotine dependence Nicotine Dependence Problem 0 05/30/2020 12:00:00 AM EDT [place] ([facility]) [id number] General finding of observation of patien t General Finding of Observation of Patient Problem 05/30/2020 12:00:00 AM EDT - 02/12/2021 12:00:00 AM EDT [place] ([facility]) [id number] Clinical finding Clinical Finding Problem 020 12:00:00 AM EDT - 02/12/2021 12:00:00 AM EDT [place] ([facility]) [id number] Emotional state finding Emotional State Finding Proble m 05/30/2020 12:00:00 AM EDT - 02/12/2021 12:00:00 AM EDT [place] ([facility]) [id number] Nicotine dependence Nicotine Dependence Problem 0 05/30/2020 12:00:00 AM EDT [place] ([facility]) 141809906 General finding of observation of patien t General Finding of Observation of Patient Problem 05/30/2020 12:00:00 AM EDT [place] [facility] [id number] Clinical finding Clinical Finding Problem 05/30/2020 12 :00:00 AM EDT [place] ([facility]) [id number] Emotional state finding Emotional State Finding Proble m 05/30/2020 12:00:00 AM EDT [place] ([facility]) 15911281 Nicotine dependence Nicotine Dependence Problem 0 05/30/2020 12:00:00 AM EDT [place] ([facility]) [id number] General finding of observation of patien t General Finding of Observation of Patient Problem 05/30/2020 12:00:00 AM EDT [place] (No [facility]) [id number] Clinical finding Clinical Finding Problem 05/30/2020 12 :00:00 AM EDT [place] ([facility]) [id number] Emotional state finding Emotional State Finding Proble m 05/30/2020 12:00:00 AM EDT [place] ([facility]) [id number] Nicotine dependence Nicotine Dependence Problem 0 05/30/2020 12:00:00 AM EDT [place] ([facility]) Surgeries/Procedures No Information Results ID Date Data Source [id number] 02/11/2021 12:00:00 AM EDT [facility] Name Value Range Interpretation Code Description Data Migdalia rce(s) Supporting Document(s) SARS-CoV2 [facility]igen [facility] was reported by [place] [facility]. ID Date Data Source [id number] 12/23/2020 10:50:00 AM EDT [place] ([facility]) Name Value Range Interpretation Code Description Data Migdalia rce(s) Supporting Document(s) HIV 1&2 screen [facility]aur negative negative HIV 1&2 Scree n [facility] [place] ([facility]) ID Date Data Source [id number] 12/23/2020 10:50:00 AM EDT [place] ([facility]) Name Value Range Interpretation Code Description Data Migdalia rce(s) Supporting Document(s) total 25(oh) vitamin D 31.6 NG/mL 30.0-100.0 Total 25(Oh) Vitamin D [place] ([facility]) ID Date Data Source [id number] 12/23/2020 10:50:[facility] Name Value Range Interpretation Code Description Data Migdalia rce(s) Supporting Document(s) HDL cholesterol 49 mg/dL >40 HDL Cholesterol [place] ([facility]) triglycerides level 173 mg/dL <150 Above high normal Triglycer ides Level [place] ([facility]) cholesterol level 255 mg/dL <200 Above high normal Cholesterol Level [place] ([facility]) non-HDL-C 206 mg/dL Non-hdl-c [facility] ([facility]) Cholesterol in LDL [Mass/volume] in Serum or Plasma 171 mg/dL <100 Above high normal LDL Cholesterol [facility] ([facility]) cholesterol risk ratio <5 Above high normal Choles terol Risk Ratio [facility] ([facility]) ID Date Data Source [id number] 12/23/2020 10:50:00 AM EDT [place] ([facility]) Name Value Range Interpretation Code Description Data Migdalia rce(s) Supporting Document(s) blood urea nitrogen 6 mg/dL 7-18 Below low normal Blood Urea Nitrogen [place] ([facility]) creatinine for GFR 0.87 mg/dL 0.55-1.30 Creatinine for GF R [place] ([facility]) glucose, fasting 97 mg/dL 70-100 Glucose, Fasting AT [facility] ([facility]) sodium level 138 mEq/L 136-145 Sodium Level [facility] ([facility]) potassium serum 4.3 mEq/L 3.5-5.1 Potassium Serum [facility] ([facility]) glomerular filtration rate > 60.0 >60 Glomerula r Filtration Rate [facility] ([facility]) chloride level 104 mEq/L 98-107 Chloride Level [facility] ([facility]) carbon dioxide level 27 mEq/L 21-32 Carbon Dioxide Level [facility] ([facility]) anion gap 7 mEq/L 8-16 Below low normal Anion Gap [facility] ( [facility]) AST/SGOT 26 U/L 7-37 AST/SGOT [facility] ([facility]) calcium level 10.0 mg/dL 8.5-10.1 Calcium Level [facility] ( [facility]) ALT/SGPT 56 U/L 12-78 ALT/SGPT [facility] ([facility]) bilirubin,total 0.6 mg/dL 0.2-1.0 Bilirubin,total [facility] ([facility]) alkaline phosphatase 93 U/L 45-117 Alkaline Phosph atase [facility] ([facility]) albumin 4.0 gm/dL 3.2-5.2 Albumin [facility] ([facility]) albumin/globulin ratio 1.2-2.2 Below low normal Albumin /globulin Ratio [facility] ([facility]) total protein 7.7 gm/dL 6.4-8.2 Total Protein [facility] ( [facility]) ID Date Data Source [id number] 12/23/2020 10:50:00 AM EDT [place] ([facility]) Name Value Range Interpretation Code Description Data Migdalia rce(s) Supporting Document(s) red blood count 4.91 10 4.00-5.40 Red Blood Count ATHE NA ([facility]) white blood count 6.8 10 4.0-10.0 White Blood Count [facility] ([facility]) hematocrit 44.4 % 36.0-47.0 Hematocrit [facility] ([facility]) hemoglobin 14.5 g/dL 12.0-15.5 Hemoglobin [facility] ([facility]) mean corpuscular volume 90.4 fL 80.0-96.0 Mean Corpusc ular Volume [facility] ([facility]) mean corpuscular hemoglobin 29.5 pg 27.0-33.0 Mean Cor puscular Hemoglobin [facility] ([facility]) mean corpuscular HGB conc 32.7 g/dL 32.0-36.5 Mean Corpu scular HGB Conc [facility] ([facility]) red cell distribution width 13.1 % 11.5-14.5 Red Cell Distribution Width [place] ([facility]) platelet count, automated 595 10 150-450 Above high norm al Platelet Count, Automated [facility] ([facility]) neutrophils % 50.4 % 36.0-66.0 Neutrophils % [facility] ( [facility]) eos % 2.3 % 0.0-3.0 Eos % [facility] ([facility]) mono % 8.5 % 2.0-8.0 Above high normal [place] % [facility] ([facility]) lymph % 37.8 % 24.0-44.0 Lymph % [facility] ([facility]) baso % 0.9 % 0.0-1.0 Baso % [place] ([facility]) immature granulocyte % 0.1 % 0-3.0 Immature Gran ulocyte % [facility] ([facility]) neutrophils # 3.4 10 1.5-8.5 Neutrophils # [place] ( [facility]) nucleated red blood cell % 0.0 % 0-0 Nucleated Red Blood Cell % [facility] ([facility]) mono # 0.6 10 0.0-0.8 [place] # [facility] ([facility]) lymph # 2.6 10 1.5-5.0 Lymph # [facility] ([facility]) eos # 0.2 10 0.0-0.5 Eos # [facility] ([facility]) baso # 0.1 10 0.0-0.2 Baso # [facility] ([facility]) ID Date Data Source [id number] 12/23/2020 10:50:00 AM EDT [place] ([facility]) Name Value Range Interpretation Code Description Data Migdalia rce(s) Supporting Document(s) HIV 1&2 screen centaur negative negative HIV 1&2 Scree n Centaur [facility] ([facility]) ID Date Data Source [id number] 12/23/2020 10:50:00 AM EDT [place] ([facility]) Name Value Range Interpretation Code Description Data Migdalia rce(s) Supporting Document(s) total 25(oh) vitamin D 31.6 NG/mL 30.0-100.0 Total 25(Oh) Vitamin D [place] ([facility]) ID Date Data Source [id number] 12/23/2020 10:50:00 AM EDT [place] ([facility]) Name Value Range Interpretation Code Description Data Migdalia rce(s) Supporting Document(s) triglycerides level 173 mg/dL <150 Above high normal Triglycer ides Level [facility] ([facility]) cholesterol level 255 mg/dL <200 Above high normal Cholesterol Level [facility] ([facility]) non-HDL-C 206 mg/dL Non-hdl-c [facility] ([facility]) Cholesterol in LDL [Mass/volume] in Serum or Plasma 171 mg/dL <100 Above high normal LDL Cholesterol [facility] ([facility]) HDL cholesterol 49 mg/dL >40 HDL Cholesterol [place] ([facility]) cholesterol risk ratio <5 Above high normal Choles terol Risk Ratio [facility] ([facility]) ID Date Data Source [id number] 12/23/2020 10:50:00 AM EDT [place] ([facility]) Name Value Range Interpretation Code Description Data Migdalia rce(s) Supporting Document(s) blood urea nitrogen 6 mg/dL 7-18 Below low normal Blood Urea Nitrogen [facility] ([facility]) glucose, fasting 97 mg/dL 70-100 Glucose, Fasting AT [facility]) creatinine for GFR 0.87 mg/dL 0.55-1.30 Creatinine for GF R [facility] ([facility]) glomerular filtration rate > 60.0 >60 Glomerula r Filtration Rate [facility] ([facility]) chloride level 104 mEq/L 98-107 Chloride Level [facility] ([facility]) sodium level 138 mEq/L 136-145 Sodium Level [facility] ([facility]) potassium serum 4.3 mEq/L 3.5-5.1 Potassium Serum [place] ([facility]) anion gap 7 mEq/L 8-16 Below low normal Anion Gap [facility] ( [facility]) carbon dioxide level 27 mEq/L 21-32 Carbon Dioxide Level [facility] ([facility]) calcium level 10.0 mg/dL 8.5-10.1 Calcium Level [facility] ( [facility]) ALT/SGPT 56 U/L 12-78 ALT/SGPT [facility] ([facility]) AST/SGOT 26 U/L 7-37 AST/SGOT [facility] ([facility]) alkaline phosphatase 93 U/L 45-117 Alkaline Phosph atase [facility] ([facility]) total protein 7.7 gm/dL 6.4-8.2 Total Protein [facility] ( [facility]) bilirubin,total 0.6 mg/dL 0.2-1.0 Bilirubin,total [place] ([facility]) albumin 4.0 gm/dL 3.2-5.2 Albumin [facility] ([facility]) albumin/globulin ratio 1.2-2.2 Below low normal Albumin /globulin Ratio [facility] ([facility]) ID Date Data Source [id number] 12/23/2020 10:50:00 AM EDT [place] ([facility]) Name Value Range Interpretation Code Description Data Migdalia rce(s) Supporting Document(s) white blood count 6.8 10 4.0-10.0 White Blood Count [facility] ([facility]) hematocrit 44.4 % 36.0-47.0 Hematocrit [facility] ([facility]) hemoglobin 14.5 g/dL 12.0-15.5 Hemoglobin [facility] ([facility]) red blood count 4.91 10 4.00-5.40 Red Blood Count ATHE NA ([facility]) mean corpuscular HGB conc 32.7 g/dL 32.0-36.5 Mean Corpu scular HGB Conc [facility] ([facility]) mean corpuscular hemoglobin 29.5 pg 27.0-33.0 Mean Cor puscular Hemoglobin [facility] ([facility]) mean corpuscular volume 90.4 fL 80.0-96.0 Mean Corpusc ular Volume [facility] ([facility]) platelet count, automated 595 10 150-450 Above high norm al Platelet Count, Automated [place] ([facility]) red cell distribution width 13.1 % 11.5-14.5 Red Cell Distribution Width [facility] ([facility]) mono % 8.5 % 2.0-8.0 Above high normal [place] % [facility] ([facility]) neutrophils % 50.4 % 36.0-66.0 Neutrophils % [facility] ( [facility]) lymph % 37.8 % 24.0-44.0 Lymph % [facility] ([facility]) immature granulocyte % 0.1 % 0-3.0 Immature Gran ulocyte % [facility] ([facility]) eos % 2.3 % 0.0-3.0 Eos % [facility] ([facility]) baso % 0.9 % 0.0-1.0 Baso % [facility] ([facility]) lymph # 2.6 10 1.5-5.0 Lymph # [facility] ([facility]) neutrophils # 3.4 10 1.5-8.5 Neutrophils # [place] ( [facility]) nucleated red blood cell % 0.0 % 0-0 Nucleated Red Blood Cell % [facility] ([facility]) eos # 0.2 10 0.0-0.5 Eos # [facility] ([facility]) mono # 0.6 10 0.0-0.8 [place] # [facility] ([facility]) baso # 0.1 10 0.0-0.2 Baso # [place] ([facility]) ID Date Data Source [id number] 12/23/2020 10:50:00 AM EDT [place] ([facility]) Name Value Range Interpretation Code Description Data Migdalia rce(s) Supporting Document(s) HIV 1&2 screen centaur negative negative HIV 1&2 Scree n Centaur [place] ([facility]) ID Date Data Source [id number] 12/23/2020 10:50:00 AM EDT [place] ([facility]) Name Value Range Interpretation Code Description Data Migdalia rce(s) Supporting Document(s) total 25(oh) vitamin D 31.6 NG/mL 30.0-100.0 Total 25(Oh) Vitamin D [place] ([facility]) ID Date Data Source [id number] 12/23/2020 10:50:00 AM EDT [place] ([facility]) Name Value Range Interpretation Code Description Data Migdalia rce(s) Supporting Document(s) triglycerides level 173 mg/dL <150 Above high normal Triglycer ides Level [place] ([facility]) cholesterol level 255 mg/dL <200 Above high normal Cholesterol Level [facility] ([facility]) non-HDL-C 206 mg/dL Non-hdl-c [facility] ([facility]) Cholesterol in LDL [Mass/volume] in Serum or Plasma 171 mg/dL <100 Above high normal LDL Cholesterol [facility] ([facility]) HDL cholesterol 49 mg/dL >40 HDL Cholesterol ATHE NA ([facility]) cholesterol risk ratio <5 Above high normal Choles terol Risk Ratio [facility] ([facility]) ID Date Data Source [id number] 12/23/2020 10:50:00 AM EDT [place] ([facility]) Name Value Range Interpretation Code Description Data Migdalia rce(s) Supporting Document(s) glucose, fasting 97 mg/dL 70-100 Glucose, Fasting AT [facility]) blood urea nitrogen 6 mg/dL 7-18 Below low normal Blood Urea Nitrogen [facility] ([facility]) creatinine for GFR 0.87 mg/dL 0.55-1.30 Creatinine for GF R [place] ([facility]) sodium level 138 mEq/L 136-145 Sodium Level [facility] ([facility]) potassium serum 4.3 mEq/L 3.5-5.1 Potassium Serum [facility] ([facility]) glomerular filtration rate > 60.0 >60 Glomerula r Filtration Rate [facility] ([facility]) anion gap 7 mEq/L 8-16 Below low normal Anion Gap [facility] ( [facility]) calcium level 10.0 mg/dL 8.5-10.1 Calcium Level [facility] ( [facility]) chloride level 104 mEq/L 98-107 Chloride Level [facility] ([facility]) carbon dioxide level 27 mEq/L 21-32 Carbon Dioxide Level [facility] ([facility]) ALT/SGPT 56 U/L 12-78 ALT/SGPT [place] ([facility]) alkaline phosphatase 93 U/L 45-117 Alkaline Phosph atase [place] ([facility]) AST/SGOT 26 U/L 7-37 AST/SGOT [place] ([facility]) albumin/globulin ratio 1.2-2.2 Below low normal Albumin /globulin Ratio [facility] ([facility]) bilirubin,total 0.6 mg/dL 0.2-1.0 Bilirubin,total [facility] [place] ([facility]) albumin 4.0 gm/dL 3.2-5.2 Albumin [facility] ([facility]) total protein 7.7 gm/dL 6.4-8.2 Total Protein [facility] ( [facility]) ID Date Data Source [id number] 12/23/2020 10:50:00 AM EDT [place] ([facility]) Name Value Range Interpretation Code Description Data Migdalia rce(s) Supporting Document(s) white blood count 6.8 10 4.0-10.0 White Blood Count [place] ([facility]) red blood count 4.91 10 4.00-5.40 Red Blood Count [facility]HE [place] ([facility]) hematocrit 44.4 % 36.0-47.0 Hematocrit [facility] ([facility]) hemoglobin 14.5 g/dL 12.0-15.5 Hemoglobin [facility] ([facility]) mean corpuscular volume 90.4 fL 80.0-96.0 Mean Corpusc ular Volume [facility] ([facility]) mean corpuscular hemoglobin 29.5 pg 27.0-33.0 Mean Cor puscular Hemoglobin [facility] ([facility]) mean corpuscular HGB conc 32.7 g/dL 32.0-36.5 Mean Corpu scular HGB Conc [facility] ([facility]) red cell distribution width 13.1 % 11.5-14.5 Red Cell Distribution Width [facility] ([facility]) platelet count, automated 595 10 150-450 Above high norm al Platelet Count, Automated [place] ([facility]) lymph % 37.8 % 24.0-44.0 Lymph % [facility] ([facility]) neutrophils % 50.4 % 36.0-66.0 Neutrophils % [facility] ( [facility]) mono % 8.5 % 2.0-8.0 Above high normal [place] % [facility] ([facility]) baso % 0.9 % 0.0-1.0 Baso % [facility] ([facility]) eos % 2.3 % 0.0-3.0 Eos % [facility] ([facility]) immature granulocyte % 0.1 % 0-3.0 Immature Gran ulocyte % [facility] ([facility]) lymph # 2.6 10 1.5-5.0 Lymph # [place] ([facility]) nucleated red blood cell % 0.0 % 0-0 Nucleated Red Blood Cell % [facility] ([facility]) neutrophils # 3.4 10 1.5-8.5 Neutrophils # [place] ( [facility]) mono # 0.6 10 0.0-0.8 [place] # [facility] ([facility]) eos # 0.2 10 0.0-0.5 Eos # [facility] ([facility]) baso # 0.1 10 0.0-0.2 Baso # [place] ([facility]) ID Date Data Source [id number] 12/11/2020 10:49:00 PM EST [place] ([facility]) Name Value Range Interpretation Code Description Data Migdalia rce(s) Supporting Document(s) istat pH 7.403 units 7.350-7.450 Istat pH [facility] ([facility]) istat pO2 77.0 mmHg 80-105 Below low normal Istat pO2 [facility] ( [facility]) istat pCO2 36.4 mmHg 35.0-45.0 Istat pCO2 [facility] ([facility]) istat HCO3 22.7 mmol/L 22.0-26.0 Istat HCO3 [facility] ([facility]) istat TCO2 24.0 mmol/L 23.0-27.0 Istat TCO2 [facility] ([facility]) istat base excess -2.0 mmol/L -2.0-3.0 Istat Base Excess [place] ([facility]) istat so2 95 % 95-98 Istat So2 [place] ([facility]) ID Date Data Source [id number] 12/11/2020 10:49:00 PM EST [place] ([facility]) Name Value Range Interpretation Code Description Data Migdalia rce(s) Supporting Document(s) istat pH 7.403 units 7.350-7.450 Istat pH [facility] ([facility]) istat pCO2 36.4 mmHg 35.0-45.0 Istat pCO2 [facility] ([facility]) istat pO2 77.0 mmHg 80-105 Below low normal Istat pO2 [facility] ( [facility]) istat TCO2 24.0 mmol/L 23.0-27.0 Istat TCO2 [facility] ([facility]) istat HCO3 22.7 mmol/L 22.0-26.0 Istat HCO3 [facility] ([facility]) istat base excess -2.0 mmol/L -2.0-3.0 Istat Base Excess [facility] ([facility]) istat so2 95 % 95-98 Istat So2 [facility] ([facility]) ID Date Data Source [id number] 12/11/2020 10:49:00 PM EST [place] ([facility]) Name Value Range Interpretation Code Description Data Migdalia rce(s) Supporting Document(s) istat pH 7.403 units 7.350-7.450 Istat pH [facility] ([facility]) istat pO2 77.0 mmHg 80-105 Below low normal Istat pO2 [facility] ( [facility]) istat TCO2 24.0 mmol/L 23.0-27.0 Istat TCO2 [facility] ([facility]) istat pCO2 36.4 mmHg 35.0-45.0 Istat pCO2 [facility] ([facility]) istat HCO3 22.7 mmol/L 22.0-26.0 Istat HCO3 [facility] ([facility]) istat base excess -2.0 mmol/L -2.0-3.0 Istat Base Excess [facility] ([facility]) istat so2 95 % 95-98 Istat So2 [facility] ([facility]) ID Date Data Source [id number] 12/11/2020 10:49:00 PM EST [place] ([facility]) Name Value Range Interpretation Code Description Data Migdalia rce(s) Supporting Document(s) istat pO2 77.0 mmHg 80-105 Below low normal Istat pO2 [facility] ( [facility]) istat pCO2 36.4 mmHg 35.0-45.0 Istat pCO2 [facility] ([facility]) istat pH 7.403 units 7.350-7.450 Istat pH [facility] ([facility]) istat TCO2 24.0 mmol/L 23.0-27.0 Istat TCO2 [place] ([facility]) istat so2 95 % 95-98 Istat So2 [place] ([facility]) istat base excess -2.0 mmol/L -2.0-3.0 Istat Base Excess [facility] ([facility]) istat HCO3 22.7 mmol/L 22.0-26.0 Istat HCO3 [place] ([facility]) ID Date Data Source [id number] 11/15/2020 12:00:00 AM EST [facility] Name Value Range Interpretation Code Description Data Migdalia rce(s) Supporting Document(s) SARS-CoV-2 (COVID-19) RNA [Presence] in Respiratory specimen by F[facility]VIO with probe detection Not Detected [facility] This lab was ordered by [facility] and reported by [employer] ID Date Data Source [id number] 08/14/2020 01:20:00 PM EST [place] ([facility]) Name Value Range Interpretation Code Description Data Migdalia rce(s) Supporting Document(s) HIV 1&2 screen centaur negative negative HIV 1&2 Scree n Centaur [place] ([facility]) ID Date Data Source [id number] 08/14/2020 01:20:00 PM EST [place] ([facility]) Name Value Range Interpretation Code Description Data Migdalia rce(s) Supporting Document(s) HIV 1&2 screen centaur negative negative HIV 1&2 Scree n Lorr [place] ([facility]) ID Date Data Source [id number] 08/14/2020 01:20:00 PM EST [place] ([facility]) Name Value Range Interpretation Code Description Data Migdalia rce(s) Supporting Document(s) HIV 1&2 screen centaur negative negative HIV 1&2 Scree n Sheaur [facility] ([facility]) ID Date Data Source [id number] 08/14/2020 01:20:00 PM EST [place] ([facility]) Name Value Range Interpretation Code Description Data Migdalia rce(s) Supporting Document(s) HIV 1&2 screen centaur negative negative HIV 1&2 Scree n Lorr [facility] ([facility]) ID Date Data Source [id number] 08/14/2020 01:06:00 PM EST [place] ([facility]) Name Value Range Interpretation Code Description Data Migdalia rce(s) Supporting Document(s) chlamydia DNA probe negative negative Chlamydia DNA Pr obe [facility] ([facility]) GC DNA probe negative negative GC DNA Probe [facility] ([facility]) ID Date Data Source [id number] 08/14/2020 01:06:00 PM EST [place] ([facility]) Name Value Range Interpretation Code Description Data Migdalia rce(s) Supporting Document(s) trichomonas vaginalis (amp) not detected negative Tricho monas Vaginalis (Amp) [facility] ([facility]) ID Date Data Source [id number] 08/14/2020 01:06:00 PM EST [place] ([facility]) Name Value Range Interpretation Code Description Data Migdalia rce(s) Supporting Document(s) appearance, urine clear clear Appearance, Urine [facility] ([facility]) pH,urine 6.0 units 5.0-9.0 pH,urine [facility] ([facility]) color, urine yellow yellow Color, Urine [facility] ([facility]) specific gravity urine auto 1.002-1.035 Specifi c [place] Urine Auto [facility] ([facility]) glucose, urine (UA) auto negative negative Glucose, Ur ine (UA) Auto [facility] ([facility]) ketone, urine auto negative negative Ketone, Urine Aut o [facility] ([facility]) protein, urine auto negative negative Protein, Urine A uto [facility] ([facility]) urobilinogen, urine auto 0.2 mg/dL 0.0-2.0 Urobilinoge n, Urine Auto [facility] ([facility]) bilirubin, urine auto negative negative Bilirubin, Uri ne Auto [facility] ([facility]) nitrite, urine auto negative negative Nitrite, Urine A uto [facility] ([facility]) leukocyte esterase, urine auto negative negative Leukocyte Esterase, Urine Auto [facility] ([facility]) WBC, urine auto 1 /hpf 0-3 WBC, Urine Auto [facility] [place] ([facility]) blood, urine blood negative negative Blood, Urine Bloo d [facility] ([facility]) RBC, urine auto 0 /hpf 0-3 RBC, Urine Auto [facility] ([facility]) bacteria, urine auto 1+ negative Above high normal Bacteria , Urine Auto [facility] ([facility]) hyaline cast, urine auto 0 /lpf 0-1 Hyaline Nelson t, Urine Auto [facility] ([facility]) squamous epithelial cell ur AU 2 /hpf 0-6 Squam ous Epithelial Cell Ur AU [facility] ([facility]) ID Date Data Source [id number] 08/14/2020 01:06:00 PM EST [facility] ([facility]) Name Value Range Interpretation Code Description Data Migdalia rce(s) Supporting Document(s) chlamydia DNA probe negative negative Chlamydia DNA Pr obe [facility] ([facility]) GC DNA probe negative negative GC DNA Probe [facility] ([facility]) ID Date Data Source [id number] 08/14/2020 01:06:00 PM EST [facility] ([facility]) Name Value Range Interpretation Code Description Data Migdalia rce(s) Supporting Document(s) trichomonas vaginalis (amp) not detected negative Tricho monas Vaginalis (Amp) [facility] ([facility]) ID Date Data Source [id number] 08/14/2020 01:06:00 PM EST [facility] ([facility]) Name Value Range Interpretation Code Description Data Migdalia rce(s) Supporting Document(s) pH,urine 6.0 units 5.0-9.0 pH,urine [facility] ([facility]) appearance, urine clear clear Appearance, Urine [place] ([facility]) color, urine yellow yellow Color, Urine [facility] ([facility]) specific gravity urine auto 1.002-1.035 Specifi c [place] Urine Auto [facility] ([facility]) glucose, urine (UA) auto negative negative Glucose, Ur ine (UA) Auto [facility] ([facility]) protein, urine auto negative negative Protein, Urine A uto [facility] ([facility]) nitrite, urine auto negative negative Nitrite, Urine A uto [facility] ([facility]) bilirubin, urine auto negative negative Bilirubin, Uri ne Auto [facility] ([facility]) urobilinogen, urine auto 0.2 mg/dL 0.0-2.0 Urobilinoge n, Urine Auto [facility] ([facility]) ketone, urine auto negative negative Ketone, Urine Aut o [facility] ([facility]) WBC, urine auto 1 /hpf 0-3 WBC, Urine Auto [facility] ([facility]) RBC, urine auto 0 /hpf 0-3 RBC, Urine Auto [facility] ([facility]) blood, urine blood negative negative Blood, Urine Bloo d [facility] ([facility]) leukocyte esterase, urine auto negative negative Leukocyte Esterase, Urine Auto [facility] ([facility]) squamous epithelial cell ur AU 2 /hpf 0-6 Squam ous Epithelial Cell Ur AU [facility] ([facility]) hyaline cast, urine auto 0 /lpf 0-1 Hyaline Nelson t, Urine Auto [facility] ([facility]) bacteria, urine auto 1+ negative Above high normal Bacteria , Urine Auto [facility] ([facility]) ID Date Data Source [id number] 08/14/2020 01:06:00 PM EST [facility] ([facility]) Name Value Range Interpretation Code Description Data Migdalia rce(s) Supporting Document(s) GC DNA probe negative negative GC DNA Probe [facility] ([facility]) chlamydia DNA probe negative negative Chlamydia DNA Pr obe [place] ([facility]) ID Date Data Source [id number] 08/14/2020 01:06:00 PM EST [facility] ([facility]) Name Value Range Interpretation Code Description Data Migdalia rce(s) Supporting Document(s) trichomonas vaginalis (amp) not detected negative Tricho monas Vaginalis (Amp) [place] ([facility]) ID Date Data Source [id number] 08/14/2020 01:06:00 PM EST [place] ([facility]) Name Value Range Interpretation Code Description Data Migdalia rce(s) Supporting Document(s) appearance, urine clear clear Appearance, Urine [place] ([facility]) pH,urine 6.0 units 5.0-9.0 pH,urine [place] ([facility]) color, urine yellow yellow Color, Urine [place] ([facility]) specific gravity urine auto 1.002-1.035 Specifi c [place] Urine Auto [place] ([facility]) glucose, urine (UA) auto negative negative Glucose, Ur ine (UA) Auto [place] ([facility]) protein, urine auto negative negative Protein, Urine A uto [place] ([facility]) bilirubin, urine auto negative negative Bilirubin, Uri ne Auto [place] ([facility]) ketone, urine auto negative negative Ketone, Urine Aut o [place] ([facility]) nitrite, urine auto negative negative Nitrite, Urine A uto [place] ([facility]) urobilinogen, urine auto 0.2 mg/dL 0.0-2.0 Urobilinoge n, Urine Auto [place] ([facility]) leukocyte esterase, urine auto negative negative Leukocyte Esterase, Urine Auto [place] ([facility]) WBC, urine auto 1 /hpf 0-3 WBC, Urine Auto [place] ([facility]) blood, urine blood negative negative Blood, Urine Bloo d [place] ([facility]) RBC, urine auto 0 /hpf 0-3 RBC, Urine Auto [place] ([facility]) squamous epithelial cell ur AU 2 /hpf 0-6 Squam ous Epithelial Cell Ur AU [place] ([facility]) hyaline cast, urine auto 0 /lpf 0-1 Hyaline Nelson t, Urine Auto [place] ([facility]) bacteria, urine auto 1+ negative Above high normal Bacteria , Urine Auto [place] ([facility]) ID Date Data Source [id number] 08/14/2020 01:06:00 PM EST [place] ([facility]) Name Value Range Interpretation Code Description Data Migdalia rce(s) Supporting Document(s) GC DNA probe negative negative GC DNA Probe [place] ([facility]) chlamydia DNA probe negative negative Chlamydia DNA Pr obe [place] ([facility]) ID Date Data Source [id number] 08/14/2020 01:06:00 PM EST [place] ([facility]) Name Value Range Interpretation Code Description Data Migdalia rce(s) Supporting Document(s) trichomonas vaginalis (amp) not detected negative Tricho monas Vaginalis (Amp) [place] ([facility]) ID Date Data Source [id number] 08/14/2020 01:06:00 PM EST [place] ([facility]) Name Value Range Interpretation Code Description Data Migdalia rce(s) Supporting Document(s) appearance, urine clear clear Appearance, Urine [place] ([facility]) color, urine yellow yellow Color, Urine [place] ([facility]) specific gravity urine auto 1.002-1.035 Specifi c [place] Urine Auto [place] ([facility]) pH,urine 6.0 units 5.0-9.0 pH,urine [place] ([facility]) protein, urine auto negative negative Protein, Urine A uto [place] ([facility]) urobilinogen, urine auto 0.2 mg/dL 0.0-2.0 Urobilinoge n, Urine Auto [place] ([facility]) ketone, urine auto negative negative Ketone, Urine Aut o [place] ([facility]) bilirubin, urine auto negative negative Bilirubin, Uri ne Auto [place] ([facility]) glucose, urine (UA) auto negative negative Glucose, Ur ine (UA) Auto [place] ([facility]) RBC, urine auto 0 /hpf 0-3 RBC, Urine Auto [place] ([facility]) leukocyte esterase, urine auto negative negative Leukocyte Esterase, Urine Auto [place] ([facility]) blood, urine blood negative negative Blood, Urine Bloo d [place] ([facility]) WBC, urine auto 1 /hpf 0-3 WBC, Urine Auto [place] ([facility]) nitrite, urine auto negative negative Nitrite, Urine A uto [place] ([facility]) hyaline cast, urine auto 0 /lpf 0-1 Hyaline Nelson t, Urine Auto [place] ([facility]) squamous epithelial cell ur AU 2 /hpf 0-6 Squam ous Epithelial Cell Ur AU [place] ([facility]) bacteria, urine auto 1+ negative Above high normal Bacteria , Urine Auto [place] ([facility]) ID Date Data Source [id number] 07/19/2020 11:12:[address] [facility] Patient History Medical History:anxiety/ depression gallbladderFamily History:maternal grandmother bladder cancerAunt stage 4 lung cancerSocial/Personal History: Smoking Status: current every day smokerCurrent Problems: [place] teeth impaction (ICD-520.6) (GID95-A18.1)Obesity, unspecified (CXV94-C11.9)Nicotine dependence, unspecified, uncomplicated (ICD10- F17.200)Health Screening (ICD-V70.0) (TSE48-Z99.9)Anxiety depression (ICD- 300.09) (AWU75-S21.8)Current Medications: * PERCOCET every 6 hours as needed for pain; Route: ORAL* IBUPROFEN 800 MG every 8 hours 3 times a day as needed; Route: ORAL* FLUOXTINE 20 MG one tab daily; Route: ORALCurrent Allergies: * BACTRIM (Moderate)Past Medical History:(reviewed - no changes required) anxiety/ depression gallbladder Dental Chart: Procedures:Type - CDT Code - Description B - (D1110) Prophylaxis, adult (Performed by Chen Staton) Chart Notes:ivett (Jul 19 2020 11:51AM): [facility]- no changescc- NoneAdditional PPE requirements due to COVID-19 in the dental setting, N95, surgical mask, hair covering, gown. Adult prophy -handscaled, polished with rotary cup, flossed OH-goodPatient reported brushing twice/day, flossing regula rly. Patient uses Listerine zero total careTrace marginal biofilm with trace marginal and interproximal calculus in sextant 5Used ultrasonic and hand instrumentsTissues- mild bleeding on flossingOHI-brushing am pm, flossing and then using Listerine zero total carePatient was cooperativeNV-Fillings Chen Staton by ivett (07/19/2020 11:51 AM): Tooth Notes and Watches:- Tooth 2 Watch: Chen Wilson by ivett (07/17/2020 7:59 AM): - Tooth 24 Note: Has tongue piercing and was explained consequences of wearing this . Chen Staton by nadia (07/17/2020 8:28 AM): - Tooth 3 Watch: Chen Wilson by ivett (07/17/2020 7:59 AM): Assessment & Plan Medications:PERCOCETIBUPROFEN 800 MGFLUOXTINE 20 MGAllergies:* BACTRIM (Moderate) __ Name Value Range Interpretation Code Description Data Migdalia rce(s) Supporting Document(s) ID Date Data Source [id number] 07/17/2020 10:11:[address] [facility] Current Problems: [place] teeth impaction (ICD-520.6) (HPS72-P22.1)Obesity, unspecified (UZB57-L96.9)Nicotine dependence, unspecified, uncomplicated (ICD10- F17.200)Health Screening (ICD-V70.0) (KJT70-O91.9)Anxiety depression (ICD- 300.09) (GOZ44-J34.8)Current Medications: * PERCOCET every 6 hours as needed for pain; Route: ORAL* IBUPROFEN 800 MG every 8 hours 3 times a day as needed; Route: ORAL* FLUOXTINE 20 MG one tab daily; Route: ORALCurrent Allergies: * BACTRIM (Moderate) Name Value Range Interpretation Code Description Data Migdalia rce(s) Supporting Document(s) ID Date Data Source [id number] 07/17/2020 07:40:[address] [facility] Patient History Medical History:anxiety/ depression gallbladderFamily History:maternal grandmother bladder cancerAunt stage 4 lung cancerSocial/Personal History: Smoking Status: current every day smokerCurrent Problems: [place] teeth impaction (ICD-520.6) (PLO54-K39.1)Obesity, unspecified (MUG34-Y69.9)Nicotine dependence, unspecified, uncomplicated (ICD10- F17.200)Health Screening (ICD-V70.0) (VPF45-M21.9)Anxiety depression (ICD- 300.09) (BGW87-P56.8)Current Medications: * PERCOCET every 6 hours as needed for pain; Route: ORAL* IBUPROFEN 800 MG every 8 hours 3 times a day as needed; Route: ORAL* FLUOXTINE 20 MG one tab daily; Route: ORALCurrent Allergies: * BACTRIM (Moderate)Past Medical History:(reviewed - no changes required) anxiety/ depression gallbladder Dental Chart: Procedures:Type - CDT Code - Description B - (D0150) Comprehensive oral evaluation - new or established patient (Performed by Tova Coffey DDS) B - (D0274) Bitewings, 4 radiographic images (Performed by Chen Staton) B - (D0230) Intraoral, periapical, each additional radiographic image on Tooth # 11 (Performed by Chen Staton) B - (D0220) Intraoral, periapical, first radiographic image on Tooth # 6 (Performed by Chen Staton) B - (D0230) Intraoral, periapical, each additional radiographic image on Tooth # 8 (Performed by Chen Staton) Treatments:Type - CDT Code - Description T - (D7140) Extraction, erupted tooth or exposed root (elevation and/or forceps removal) on Tooth # 1 (Performed by Chen Staton) T - (D7140) Extraction, erupted tooth or exposed root (elevation and/or forceps removal) on Tooth # 17 (Performed by Chen Staton) T - (D7140) Extraction, erupted tooth or exposed root (elevation and/or forceps removal) on Tooth # 32 (Performed by Chen Staton) T - (D7140) Extraction, erupted tooth or exposed root (elevation and/or forceps removal) on Tooth # 16 (Performed by Chen Staton) T - (D2140) Amalgam-one surface, primary or permanent on Tooth # 14 on Tooth Surface O (Performed by Chen Staton) Existing:Type - CDT Code - Description[E] Not Erupted On #17, #32[E] Decay On #14 Surface O Chart Notes:nadia (Jul 17 2020 8:26AM): GEOVANNY(-). CC: none. Reviewed Xrays. Exam: caries detected. OCS: WNL, IO/ EO completed, No significant hard findings upon clinical exam.Additional PPE requirements due to COVID-19 in the dental setting, N95, surgical mask, hair covering, gown and shieldTalk to pt. about her tongue piercing. Explain it can lead to boneloss on the lower anterior, make the teeth mobile and eventually will cause lossss of teeth.. Pt was cooperative. OHI given Referral: N/A NV:Chen Blackman by nadia (07/17/2020 8:25 AM): ; ivett (Jul 17 2020 8:08AM): [facility]- no changescc-NoneAdditional PPE requirements due to COVID-19 in the dental setting, N95, surgical mask, hair covering, gown. Comp exam, 4BWX-SUSY mckeon# 6,8,11 OH-goodPatient referred to Os for extraction of 3rd molarsPatient is brushing twice/day, flossing using plackers. Patient uses Listerine mouthwash Trace marginal biofilm. Trace marginal and interproximal calculus in sextant 5. Patient wears a tongue ring. Talked about risk of fracturing max and liam anteriors because of constant trauma and also bone loss in liam anteriorsOHI-brushing am pm, flossing and then using Listerine zero total carePatient was cooperativeNV-Adult prophChen Sevilla by ivett (07/17/2020 8:08 AM): Tooth Notes and Watches:- Tooth 2 Watch: Chen Wilson by ivett (07/17/2020 7:59 AM): - Tooth 24 Note: Has tongue piercing and was explained consequences of wearing this . Chen Staton by nadia (07/17/2020 8:28 AM): - Tooth 3 Watch: Chen Wilson by ivett (07/17/2020 7:59 AM): Assessment & Plan Problems:Added: [place] teeth impaction (ICD-520.6) (ICD10- K01.1)Medications:PERCOCETIBUPROFEN 800 MGFLUOXTINE 20 MGAllergies:* BACTRIM (Moderate)Orders:Oral Surgery Referral [CPT-46087] Name Value Range Interpretation Code Description Data Migdalia rce(s) Supporting Document(s) ID Date Data Source [id number] 07/03/2020 11:18:[address] [facility] Labs In-House Blood TestsDate/Time Colle cted: July 03, 2020 10:29 AMTest Result Reference Range Normal ValueComments: Labs drawn in office. Taken from left AC. Tolerated well Anna Arnold MA, July 03, 2020 11:19 AMAssessment & Plan Orders:[id number] Vst-Est Level I [CPT-21295] [id number] - Venipuncture [CPT-73289] Electronically signed by Ember MEDINA on 07/13 at 11:10 AM Name Value Range Interpretation Code Description Data Migdalia rce(s) Supporting Document(s) ID Date Data Source [id number] 07/03/2020 10:29:[address] [facility] Name Value Range Interpretation Code Description Data Migdalia rce(s) Supporting Document(s) APPEARANCE U CLOUDY CLEAR H [facility] SPEC GR URIN 1.021 1.002-1.035 N [facility] UA COLOR YELLOW YELLOW N [facility] Family [facility] ID Date Data Source [id number] 07/03/2020 10:29:[address] [facility] Name Value Range Interpretation Code Description Data Migdalia rce(s) Supporting Document(s) HCT 41.6 % 36.0-47.[address] [facility] HGB 13.3 g/dL 12.0-15.[address] [facility] MCH 32.0 G/DL pg 32.0-36.5 N [facility] MCHC 29.8 PG % 27.0-33.[address] [facility] PLATELETS 469 10 10*3/mm3 150-[address] [facility] RBC 4.47 10 10*6/mm3 4.00-5.[address] [facility] RDW 13.2 % 11.5-14.[address] [facility] WBC TOTAL 7.7 4.0-10.[address] [facility] ID Date Data Source [id number] 07/03/2020 10:29:[address] [facility] Name Value Range Interpretation Code Description Data Migdalia rce(s) Supporting Document(s) BG FASTING 96 mg/dL 70-[address] [facility] y Health T4, FREE 0.95 ng/dL 0.76-1.46 N [facility] TSH 1.300 microintl units/mL 0.358-3.740 N [facility] VIT D25 TOT 17.2 ng/mL 30.0-100.0 L [facility] ID Date Data Source [id number] 07/03/2020 10:29:[address] [facility] Name Value Range Interpretation Code Description Data Migdalia rce(s) Supporting Document(s) HGBA1C 5.1 % N [facility] ID Date Data Source [id number] 05/30/2020 11:29:[address] [facility] Measurements & CalculationsHeight: 67 inches (5 ft. 7 in.) 170.18 cm Weight: 291 pounds 4 oz. 132.39 kg Body Mass Index (BMI): 45.78BMI Interpretation: Morbidly ObeseBody Surface Area (BSA): 2.37Weight Management Education Done (Nutrition/Physical Activity)Vital SignsTemperature: 98.0FPulse Rate: 87 beats/minuteRespiratory Rate: 14 respirations/minuteBlood Pressure: 121/80 O2 Saturation: 95% Vital Signs performed by: Suzy Jones LPN, May 30, 2020 11:51 AMVital Signs performed by: Suzy Jones LPN, May 30, 2020 11:51 AMInitial Intake Information From: patientRoom #: 11Infectious Disease / Travel ScreeningRecent travel for you or any close contacts? NoHave you had any close contact with anyone diagnosed with or under investigation for COVID-19 (coronavirus)? NoFever? NoRespiratory symptoms: cough, cold, congestion, shortness of breath, difficulty breathing? YesLoss of smell? NoLoss of taste? NoDetails: cough Pt states she smokes Smoking, Tobacco, Vaping or Smoke Exposure StatusSmoke Status: current every day smokerTobacco Use: YesAdv to Quit: YesDo you vape? YesCessation advice given: YesWhat is in your device? nicotineFrequency: current every day vaperPassive Smoke Exposure: NoMenstrual HistoryLast Menstrual Period (LMP): 05/17/2020Any possibility of ? NoComments: tubal Healthcare HistorySince your last office visit...Have you been admitted to the hospital? Yes - [facility] Tubal Hospital admission date reported today: 05/28/2020Have you been to an emergency room (ER) or urgent care clinic? NoHave you seen another healthcare provider? Yes - OBGYNHave you seen a dentist? Yes - NCFHIntake performed by: Suzy Jones LPN, May 30, 2020 11:34 AMRate Your HealthIn general, would you say your health is? GoodPain AssessmentAre you currently having any pain which... You would like your provider to address? No Affects your activity level? NoDepression Screening - PHQ-2Over the last two weeks, have you... Had little interest or pleasure in doing things? Not at all Been feeling down, depressed, or hopeless? Not at all PHQ-2 Score: 0Anxiety Screening - ELLE-2Over the last two weeks, have you been... Feeling nervous, anxious, or on edge? More than half the days Unable to stop or control worrying? More than half the days ELLE-2 Score: 4Food InsecurityWithin the past year...Did you worry whether your food would run out before you got money to buy more? NoWas there a time when the food you bought didn't last and you didn't have money to get more? NoGeneralized Anxiety Disorder 7-Item Screening (ELLE-7)Answer Guide:0 = Not at all1 = Several days2 = Over half the days3 = Nearly every dayOver the last 2 weeks, how often have you been bothered by the following problems?Feeling nervous, anxious, or on edge: 2Not being able to stop or control worryinWorrying too much about different things: 2Trouble relaxinBeing so restless that it's hard to sit still: 0Becoming easily annoyed or irritable: 2Feeling afraid as if something awful might happen: 1Answer Guide:0 = Not difficult at all1 = Somewhat difficult2 = Very difficult3 = Extremely difficultHow difficult have these made it for you to do your work, take care of things at home, or get along with other people? 0GAD- 7 Screening Results ELLE-2 Score: 4GAD-7 Score: 11Functional Impairment: Not difficult at allRecommendation: Moderate anxietyPHQ-9 1. Over the last 2 weeks, patient reports the following frequency of symptoms: a. Little interest or pleasure in doing things -Not at all b. Feeling down, depressed, or hopeless -Not at all c. Trouble falling asleep, staying asleep, or sleeping too much -Nearly every day d. Feeling tired or having little energy -Nearly every day e. Poor appetite or overeating -Nearly every day f. Feeling bad about yourself, feel ing that you are a failure, or feeling that you have let yourself or your family down -Not at all g. Trouble concentrating on things such as reading the newspaper or watching television -Nearly every day h. Moving or speaking so slowly that other people cou ld have noticed. Or being so fidgety or restless that you have been moving around a lot more than usual -Not at all i. Thinking that you would be better off or that you want to hurt yourself in some way -Not at all2. If you checked off any problems, how difficult have these problems made it for you to do your work, take care of things at home, or get along with other people? -Not Difficult at AllToday's PHQ-9 Results Score: 12 Severity: Moderate Diagnosis Recommendation: No recommendation Functional Impairment: Not Difficult at AllToday's Follow-Up Action Depression follow-up done. Follow-Up Action: refused therapy, referred to telepsychChandra LE Sociodemographic Characteristics Race: Patient Declined Ethnicity: Patient Declined Preferred Language: EnglishFamily and Home Address: [address] [place] [address] What is your housing situation today? I have h ousing Are you worried about losing your housing? NoMoney and Resources In the past year, have you or any family members you live with been unable to get any of the following when it was really needed? Denies Insecurity: food, utilities, clothing, maternal child nurse, phone, legal services, otherWithin the past year did you worry whether your food would run out before you got money to buy more? NoWithin the past year was there a time when the food you bought didn't last and you didn't have money to get more? NoSocial and Emotional Health How often do you see or talk to people that you care about and feel close to? More than 5 times a week How stressed are you? A little bitAdditional Optional Domains Do you feel physically and emotionally safe where you live? Yes In the past year, have you been afraid of a partner, ex-partner? NoScreening, Brief Intervention, & Referral to Treatment (SBIRT)Pre-Screening Questions How many times have you have 4 or more drinks in a day? 0How many times have you used an illegal drug or used a prescription medication for a non-medical reason? 0Performed by: Suzy Jones LPN, May 30, 2020 11:50 AMPatient History Medical History:anxiety/ depression gallbladderSurgical History:Tubal 05/28/2020Adnoidectomy TonsillectomyFamily History:maternal grandmother bladder cancerAunt stage 4 lung cancerSocial/Personal History:lives with her 2 children in own home Advised to Quit/Tobacco Education: YesChief ComplaintNew PE Establish care room 11History of Present Illness (HPI)25 YO female here to establish care. Pt states was being seen by Dr Brown. 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 Pt states had tubal two days ago. Pt states chronic anxiety and depression. pt states was taking xanax and fluoxitine Pt states have been out for about a month. Pt states wishing to restart. Pt states was effective for her anxietyRecords not available for review today. . Pt states was last seen by DR Brown about two months ago. Pt states mother of two children ages 2 and 4. HPI performed by: Ember Davila [facility], May 30, 2020 12:21 PMTransitions of Care InboundProblem ReviewProblem List was reviewed and/or updated during this visit.Medication Reconciliation & ReviewMedication List was reviewed and/or updated during this visit, including review of any [id number] medications, herbal therapies, and/or supplements.Allergy ReviewAllergy List was reviewed and/or updated during this visit.Adult Preventive CareProvider Calculated and Reviewed all Clinical Protocols for patient today. Screening Tobacco Screening: Smoking Status: current every day smoker (05/30/2020) Tobacco Use: Currently (05/30/2020) Advised to Quit: Yes (05/30/2020)Labs/Meds/Other Counseling-Nutrition and Physical Activity:BMI Interpretation: Morbidly Obese (05/30/2020) Counseling: Done (05/30/2020) Physical Activity: Done (05/30/2020)Review of Systems General: Denies loss of appetite, chills, dizziness, fatigue, fever, continued fever, headache, feeling ill, sweats, night sweats, sleep disturbances, weight loss. Eyes: Denies blurring of vision, double vision, irritation, discharge, vision loss, eye pain, eye swelling, droopy eyelid, sensitivity to light, redness, itching. Ears/Nose/Throat: Denies earache, ear discharge, ringing in ears, decreased hearing, nasal congestion, nosebleeds, runny nose, sore throat, hoarseness, difficulty swallowing, dry mouth, tooth pain, bleeding gums, swollen glands. Cardiovascular: Denies chest pain, palpitations, feeling faint, trouble breathing w/exertion, SOB upon lying down, SOB at night, peripheral edema, elevated blood pressure, decreased heart rate. Respiratory: Denies cough, difficulty breathing, shortness of breath, excessive sputum, coughing up blood, wheezing, chest pain. Breast: Denies discoloration, tenderness, breast changes, breast lump, nipple discharge. Gastrointestinal: Denies nausea, vomiting, bleeding, burning, itching, irritation, cramps, diarrhea, constipation. Genitourinary: Denies urinary incontinence, pain with urination, burning with urination, urinary frequency, urinary hesitancy, urinary urgency, urinary urgency at night, incomplete emptying, blood in urine. Musculoskeletal: Denies back pain, joint pain, leg pain, other pain-see comments, joint swelling, body aches, muscle aches, muscle cramps, muscle weakness, stiffness, recent injury. Skin: Denies rash, hives, redness, itching, dryness, nail changes, suspicious lesions, athlete's foot, rash on palms, rash on bottom of feet. Neurologic: Denies muscle impairment, weakness, numbness/tingling, seizures, slurred speech, feeling faint, tremors, vertigo, paralysis on one side, paralysis on both sides. Psychiatric: Complains of depression, anxiety. Denies memory loss, mental disturbance, suicidal ideation, homicidal ideation, hallucinations, paranoia, feeling stressed, hearing voices. Endocrine: Denies cold intolerance, heat intolerance, excessive thirst, excessive hunger, excessive urination, weight loss, weight gain. Physical ExamGeneral Appearance: well nourished, well hydrated, no acute distressEyes, External: conjunctivae and lids normal, EOMIRespiratory, Auscultation: clear to auscultation bilaterally; no rales, rhonchi, or wheezesRespiratory, Effort: no intercostal retractions or use of accessory musclesCardiovascular, Auscultation: S1, S2 audible; no murmur, rub, or gallop; RRRPeripheral Circulation: no clubbing, cyanosis, edema, or varicositiesAbdomen: soft, non-tender, no masses, bowel sounds normalGait & Station: normalSkin, Inspection: no rashes, lesions, or ulcerationsOrientation: oriented to time, place, and personMood & Affect: no depression, anxiety, or agitationJudgment & Insight: seems intact. Care Management Plan Transitions of CareInboundRate Your HealthIn general, would you say your health is? GoodAssessment & Plan Problems:Added: Health Screening (ICD-V70.0) (MNO70-H58.9) Assessment: Previous records not available, labs ordered. pt scheduled for follow up Instructions: Fasting labs ordered for you today. Please reurn prior to your next visit to have labs drawn. Please fast for 8-10 hours prior.Anxiety depression (ICD-300.09) (GCF04-G96.8) Assessment: Instructions: We have made a referral for you today. We will contact you to set this upNicotine dependence, unspecified, uncomplicated ([id number]) Assessment: Instructions: Please try to cut back on vaping nicotine with a goal to quit.Obesity, unspecified (XTL41-D73.9) Assessment: Instructions: Please try to maintain healthy diet and physical activities.Patient Instructions/Care Plan: Health Screening: Fasting labs ordered for you today. Please reurn prior to your next visit to have labs drawn. Please fast for 8-10 hours prior.Anxiety depression: We have made a referral for you today. We will contact you to set this upNicotine dependence- unspecified- uncomplicated: Please try to cut back on vaping nicotine with a goal to quit.Obesity- unspecified: Please try to maintain healthy diet and physical activities. Plan developed in collaboration with patient and/or familyMedications:PERCOCETIBUPROFEN 800 MGFLUOXTINE 20 MGMedication Changes:Added: * FLUOXTINE 20 MG-one tab daily* I BUPROFEN 800 MG-every 8 hours 3 times a day as needed* PERCOCET-every 6 hours as needed for painAllergies:* BACTRIM (Moderate)Orders:COMP METABOLIC PANEL [CPT- 16898] CBC W/DIFF [CPT-87068] HgBA1c [CPT-28569] LIPID PANEL [CPT-96877] TSH [CPT-85716] T-4 free [CPT-39741] Vitamin D 250H Unspecified [CPT-17707] URINALYSIS [CPT-90501] Telepsychiatry Consult [CPT-73959] Adult - Ofc Vst, NEW, Level III [CPT-47361] Follow-Up Return to clinic: 4-6 weeks for follow up Clinical Visit Summary Completed Name Value Range Interpretation Code Description Data Migdalia rce(s) Supporting Document(s) Procedure Social History Code Duration Value Status Description Data Source(s ) Smoking 12/13/2020 12:00:00 AM EST Former Smoker completed Former Smoker eCW1 ([facility]) Smoking 12/13/2020 12:00:00 AM EST Former Smoker completed Former Smoker [facility] ([facility]) Vital Signs ID Date Data Source UNK Name Value Range Interpretation Code Description Data Source(s) Body height 67 [in_i] 67 [in_i] ALLEN ([facility]) Body mass index (BMI) [Ratio] 45.1 kg/m2 45.1 k g/m2 ALLEN ([facility]) Body weight 4608 [oz_av] 4608 [oz_av] ALLEN ([facility]) Diastolic blood pressure 83 mm[Hg] 83 mm[Hg] ALLEN ([facility]) Body height 67 [in_i] 67 [in_i] ALLEN ([facility]) Systolic blood pressure 134 mm[Hg] 134 mm[Hg] A [facility] ([facility]) Diastolic blood pressure 83 mm[Hg] 83 mm[Hg] ALLEN ([facility]) Body height 67 [in_i] 67 [in_i] ALLEN ([facility]) Systolic blood pressure 134 mm[Hg] 134 mm[Hg] A [facility] ([facility]) Diastolic blood pressure 93 mm[Hg] 93 mm[Hg] ALLEN ([facility]) Body height 67 [in_i] 67 [in_i] ALLEN ([facility]) Body mass index (BMI) [Ratio] 43.1 kg/m2 43.1 k g/m2 ALLEN ([facility]) Systolic blood pressure 137 mm[Hg] 137 mm[Hg] A THENA ([facility]) Body weight 4400 [oz_av] 4400 [oz_av] ALLEN ([facility]) Diastolic blood pressure 93 mm[Hg] 93 mm[Hg] ALLEN ([facility]) Body height 67 [in_i] 67 [in_i] ALLEN ([facility]) Body mass index (BMI) [Ratio] 43.1 kg/m2 43.1 k g/m2 ALLEN ([facility]) Systolic blood pressure 137 mm[Hg] 137 mm[Hg] A THENA ([facility]) Body weight 4400 [oz_av] 4400 [oz_av] ALLEN ([facility]) Diastolic blood pressure 93 mm[Hg] 93 mm[Hg] ALLEN ([facility]) Body height 67 [in_i] 67 [in_i] ALLEN ([facility]) Body mass index (BMI) [Ratio] 43.1 kg/m2 43.1 k g/m2 ALLEN ([facility]) Systolic blood pressure 137 mm[Hg] 137 mm[Hg] A THENA ([facility]) Body weight 4400 [oz_av] 4400 [oz_av] ALLEN ([facility]) Body weight 280 [lb_av] 280 [lb_av] eCW1 ([facility]) Body height 67 [in_i] 67 [in_i] eCW1 ([facility]) Body mass index (BMI) [Ratio] 43.85 kg/m2 43.85 kg/m2 [facility] ([facility]) Systolic blood pressure 134 mm[Hg] 134 mm[Hg] M EDENT ([facility], [facility]) Diastolic blood pressure 86 mm[Hg] 86 mm[Hg] MEDENT ([facility], [facility]) Heart rate 119 /min 119 /min MEDENT ([facility], [facility]) Respiratory rate 14 /min 14 /min MEDENT ( [facility], [facility]) Oxygen saturation in Arterial blood by Pulse oximetry 98 % 98 % MEDENT ([facility], [facility]) Body temperature 96.8 [degF] 96.8 [degF] MEDRENEA ([facility], [facility]) Body weight 285.00 [lb_av] 285.00 [lb_av] STASEN T ([facility], [facility]) Body height 67 [in_i] 67 [in_i] MEDRENEA ([facility], [facility]) 5'7" Body mass index (BMI) [Ratio] 44.6 kg/m2 44.6 k g/m2 MEDENT ([facility], [facility]) Diastolic blood pressure 83 mm[Hg] 83 mm[Hg] ALLEN ([facility]) Body height 67 [in_i] 67 [in_i] ALLEN ([facility]) Body mass index (BMI) [Ratio] 45.3 kg/m2 45.3 k g/m2 ALLEN ([facility]) Systolic blood pressure 129 mm[Hg] 129 mm[Hg] A [facility] ([facility]) Body weight 4626 [oz_av] 4626 [oz_av] ALLEN ([facility]) Diastolic blood pressure 83 mm[Hg] 83 mm[Hg] ALLEN ([facility]) Body height 67 [in_i] 67 [in_i] ALLEN ([facility]) Body mass index (BMI) [Ratio] 45.3 kg/m2 45.3 k g/m2 ALLEN ([facility]) Systolic blood pressure 129 mm[Hg] 129 mm[Hg] A THENA ([facility]) Body weight 4626 [oz_av] 4626 [oz_av] ALLEN ([facility]) Diastolic blood pressure 83 mm[Hg] 83 mm[Hg] ALLEN ([facility]) Body height 67 [in_i] 67 [in_i] ALLEN ([facility]) Body mass index (BMI) [Ratio] 45.3 kg/m2 45.3 k g/m2 ALLEN ([facility]) Systolic blood pressure 129 mm[Hg] 129 mm[Hg] A [facility] ([facility]) Body weight 4626 [oz_av] 4626 [oz_av] ALLEN ([facility]) Diastolic blood pressure 83 mm[Hg] 83 mm[Hg] ALLEN ([facility]) Body height 67 [in_i] 67 [in_i] ALLEN ([facility]) Body mass index (BMI) [Ratio] 45.3 kg/m2 45.3 k g/m2 ALLEN ([facility]) Systolic blood pressure 129 mm[Hg] 129 mm[facility]Hg[facility] Body weight 4626 [oz_av] 4626 [oz_av] ALLEN ([facility]) Diastolic blood pressure 83 mm[Hg] 83 mm[Hg] ALLEN ([facility]) Body height 67 [in_i] 67 [in_i] ALLEN ([facility]) Body mass index (BMI) [Ratio] 45.3 kg/m2 45.3 k g/m2 ALLEN ([facility]) Systolic blood pressure 129 mm[Hg] 129 mm[Hg] A [facility] ([facility]) Body weight 4626 [oz_av] 4626 [oz_av] ALLEN ([facility]) Diastolic blood pressure 80 mm[Hg] 80 mm[Hg] ALLEN ([facility]) Body height 67 [in_i] 67 [in_i] ALLEN ([facility]) Systolic blood pressure 121 mm[Hg] 121 mm[Hg] [facility] Body weight 4660 [oz_av] 4660 [oz_av] ALLEN ([facility]) Diastolic blood pressure 80 mm[Hg] 80 mm[Hg] ALLEN ([facility]) Body height 67 [in_i] 67 [in_i] ALLEN ([facility]) Body mass index (BMI) [Ratio] 45.78 kg/m2 45.78 kg/m2 ALLEN ([facility]) Systolic blood pressure 121 mm[Hg] 121 mm[Hg] [facility] Body weight 4660 [oz_av] 4660 [oz_av] ALLEN ([facility]) Diastolic blood pressure 80 mm[Hg] 80 mm[Hg] ALLEN ([facility]) Body height 67 [in_i] 67 [in_i] ALLEN ([facility]) Body mass index (BMI) [Ratio] 45.78 kg/m2 45.78 kg/m2 ALLEN ([facility]) Systolic blood pressure 121 mm[Hg] 121 mm[Hg] A RAMSEYA ([facility]) Body weight 4660 [oz_av] 4660 [oz_av] ALLEN ([facility]) Diastolic blood pressure 80 mm[Hg] 80 mm[Hg] ALLEN ([facility]) Body height 67 [in_i] 67 [in_i] ALLEN ([facility]) Body mass index (BMI) [Ratio] 45.78 kg/m2 45.78 kg/m2 ALLEN ([facility]) Systolic blood pressure 121 mm[Hg] 121 mm[Hg] A RAMSEYA ([facility]) Body weight 4660 [oz_av] 4660 [oz_av] ALLEN ([facility]) Diastolic blood pressure 80 mm[Hg] 80 mm[Hg] ALLEN ([facility]) Body height 67 [in_i] 67 [in_i] ALLEN ([facility]) Body mass index (BMI) [Ratio] 45.78 kg/m2 45.78 kg/m2 ALLEN ([facility]) Systolic blood pressure 121 mm[Hg] 121 mm[Hg] A RAMSEYA ([facility]) Body weight 4660 [oz_av] 4660 [oz_av] ALLEN ([facility]) Patient Treatment Plan of Care Planned Activity Planned Date Details Description Data Source (s) Tobramycin 3 MG/ML Ophthalmic Solution ALLEN ([facility]) [place] 28 0.15 mg-0.03 mg tablet ALLEN ([facility]) Acetaminophen 325 MG / Oxycodone Hydrochloride 5 MG Oral Tablet ALLEN ([facility]) Oseltamivir 75 MG Oral Capsule ALLEN ([facility]) Kika Stack [facility] spacer USE DIRECTED ALLEN ([facility]) Ondansetron 4 MG Disintegrating Oral Tablet ALLEN ([facility]) Loratadine 10 MG Oral Tablet ALLEN ([facility]) Ketorolac Tromethamine 5 MG/ML Ophthalmic Solution ALLEN ([facility]) Ibuprofen 600 MG Oral Tablet ALLEN ([facility]) cefdinir 300 MG Oral Capsule ALLEN ([facility]) benzonatate 100 MG Oral Capsule ALLEN ([facility]) Azithromycin 250 MG Oral Tablet ALLEN ([facility]) azelastine 137 mcg (0.1 %) nasal spray aerosol ALLEN ([facility]) Alprazolam 0.5 MG Oral Tablet ALLEN ([facility]) albuterol sulfate HFA 90 mcg/actuation a erosol inhaler INHALE 2 PUFFS BY MOUTH EVERY 4 6 HOURS NEEDED FOR WHEEZING ALLEN ([facility]) Acetaminophen 500 MG Oral Tablet ALLEN ([facility]) [place] 28 0.15 mg-0.03 mg tablet ALLEN ([facility]) Acetaminophen 325 MG / Oxycodone Hydrochloride 5 MG Oral Tablet ALLEN ([facility]) Oseltamivir 75 MG Oral Capsule ALLEN ([facility]) Ondansetron 4 MG Disintegrating Oral Tablet ALLEN ([facility]) Loratadine 10 MG Oral Tablet ALLEN ([facility]) Ibuprofen 600 MG Oral Tablet ALLEN ([facility]) cefdinir 300 MG Oral Capsule ALLEN ([facility]) benzonatate 100 MG Oral Capsule ALLEN ([facility]) Azithromycin 250 MG Oral Tablet ALLEN ([facility]) azelastine 137 mcg (0.1 %) nasal spray aerosol ALLEN ([facility]) albuterol sulfate HFA 90 mcg/actuation a erosol inhaler INHALE 2 PUFFS BY MOUTH EVERY 4 6 HOURS NEEDED FOR WHEEZING ALLEN ([facility]) Acetaminophen 500 MG Oral Tablet ALLEN ([facility]) Acetaminophen 325 MG / Oxycodone Hydrochloride 5 MG Oral Tablet ALLEN ([facility]) Oseltamivir 75 MG Oral Capsule ALLEN ([facility]) Ondansetron 4 MG Disintegrating Oral Tablet ALLEN ([facility]) Loratadine 10 MG Oral Tablet ALLEN ([facility]) Ibuprofen 600 MG Oral Tablet ALLEN ([facility]) cefdinir 300 MG Oral Capsule ALLEN ([facility]) benzonatate 100 MG Oral Capsule ALLEN ([facility]) Azithromycin 250 MG Oral Tablet ALLEN ([facility]) azelastine 137 mcg (0.1 %) nasal spray aerosol ALLEN ([facility]) albuterol sulfate HFA 90 mcg/actuation a erosol inhaler INHALE 2 PUFFS BY MOUTH EVERY 4 6 HOURS NEEDED FOR WHEEZING ALLEN ([facility]) Acetaminophen 500 MG Oral Tablet ALLEN ([facility]) Jennifer 28 0.15 mg-0.03 mg tablet ALLEN ([facility]) Acetaminophen 325 MG / Oxycodone Hydrochloride 5 MG Oral Tablet ALLEN ([facility]) Oseltamivir 75 MG Oral Capsule ALLEN ([facility]) Loratadine 10 MG Oral Tablet ALLEN ([facility]) Ibuprofen 600 MG Oral Tablet ALLEN ([facility]) cefdinir 300 MG Oral Capsule ALLEN ([facility]) Azithromycin 250 MG Oral Tablet ALLEN ([facility]) azelastine 137 mcg (0.1 %) nasal spray aerosol ALLNE ([facility]) Acetaminophen 500 MG Oral Tablet ALLEN ([facility]) Jennifer 28 0.15 mg-0.03 mg tablet ALLEN ([facility]) Acetaminophen 325 MG / Oxycodone Hydrochloride 5 MG Oral Tablet ALLEN ([facility]) Oseltamivir 75 MG Oral Capsule ALLEN ([facility]) Loratadine 10 MG Oral Tablet ALLEN ([facility]) Ibuprofen 600 MG Oral Tablet ALLEN ([facility]) cefdinir 300 MG Oral Capsule ALLEN ([facility]) Azithromycin 250 MG Oral Tablet ALLEN ([facility]) azelastine 137 mcg (0.1 %) nasal spray aerosol ALLEN ([facility]) Acetaminophen 500 MG Oral Tablet ALLEN ([facility]) Jennifer 28 0.15 mg-0.03 mg tablet ALLEN ([facility])
[2021-07-29] MEDS ORDERED: FLUO20CA22 (09:30)
--- OUTSIDE RECORDS SUMMARY | 2021-07-29 12:00 | CCD ---
Author Author [facility] Organization [facility] Address Unknown Phone Unavailable Care Team Providers Care Sprinkling System Installer Name Role Phone Ember Davila UTILITIES ESTIMATOR AND DRAFTER Unavailable Unavailable CHARLEE, A. UTILITIES ESTIMATOR AND DRAFTER NITIN Unavailable [phone] CHARLEE, A. UTILITIES ESTIMATOR AND DRAFTER NITIN Unavailable [phone] CHARLEE, A. UTILITIES ESTIMATOR AND DRAFTER NITIN Unavailable [phone] CHARLEE, A. UTILITIES ESTIMATOR AND DRAFTER NITIN Unavailable [phone] CHARLEE, A. UTILITIES ESTIMATOR AND DRAFTER NITIN Unavailable [phone] CHARLEE, A. UTILITIES ESTIMATOR AND DRAFTER NITIN Unavailable [phone] CHARLEE, A. UTILITIES ESTIMATOR AND DRAFTER NITIN Unavailable [phone] CHARLEE, A. UTILITIES ESTIMATOR AND DRAFTER NITIN Unavailable [phone] CHARLEE, A. UTILITIES ESTIMATOR AND DRAFTER NITIN Unavailable [phone] CHARLEE, A. UTILITIES ESTIMATOR AND DRAFTER NITIN Unavailable [phone] CHARLEE, A. UTILITIES ESTIMATOR AND DRAFTER NITIN Unavailable [phone] CHARLEE, A. UTILITIES ESTIMATOR AND DRAFTER NITIN Unavailable [phone] CHARLEE, A. UTILITIES ESTIMATOR AND DRAFTER NITIN Unavailable [phone] CHARLEE, A. UTILITIES ESTIMATOR AND DRAFTER NITIN Unavailable [phone] CHARLEE, A. UTILITIES ESTIMATOR AND DRAFTER NITIN Unavailable [phone] JENNIE, PATRIA INSIDE ACCOUNT EXECUTIVE Unavailable Unavailable JENNIE, PATRIA INSIDE ACCOUNT EXECUTIVE Unavailable Unavailable JENNIE, PATRIA INSIDE ACCOUNT EXECUTIVE Unavailable Unavailable JENNIE, PATRIA INSIDE ACCOUNT EXECUTIVE Unavailable Unavailable JENNIE, PATRIA INSIDE ACCOUNT EXECUTIVE Unavailable Unavailable JENNIE, PATRIA INSIDE ACCOUNT EXECUTIVE Unavailable Unavailable JENNIE, PATRIA INSIDE ACCOUNT EXECUTIVE Unavailable Unavailable Giovanni, A Ember UTILITIES ESTIMATOR AND DRAFTER Unavailable Unavailable Giovanni, A Ember UTILITIES ESTIMATOR AND DRAFTER Unavailable Unavailable Giovanni, A Ember UTILITIES ESTIMATOR AND DRAFTER Unavailable Unavailable Giovanni, A Ember UTILITIES ESTIMATOR AND DRAFTER Unavailable Unavailable Giovanni, A Ember UTILITIES ESTIMATOR AND DRAFTER Unavailable Unavailable Giovanni, A Ember UTILITIES ESTIMATOR AND DRAFTER Unavailable Unavailable Giovanni, A Ember UTILITIES ESTIMATOR AND DRAFTER Unavailable Unavailable Giovanni, A Ember UTILITIES ESTIMATOR AND DRAFTER Unavailable Unavailable Giovanni, A Ember UTILITIES ESTIMATOR AND DRAFTER Unavailable Unavailable Giovanni, A Ember UTILITIES ESTIMATOR AND DRAFTER Unavailable Unavailable Giovanni, A Ember UTILITIES ESTIMATOR AND DRAFTER Unavailable Unavailable Giovanni, A Ember UTILITIES ESTIMATOR AND DRAFTER Unavailable Unavailable Giovanni, A Ember UTILITIES ESTIMATOR AND DRAFTER Unavailable Unavailable Giovanni, A Ember UTILITIES ESTIMATOR AND DRAFTER Unavailable Unavailable Giovanni, A Ember UTILITIES ESTIMATOR AND DRAFTER Unavailable Unavailable Giovanni, A Ember UTILITIES ESTIMATOR AND DRAFTER Unavailable Unavailable Giovanni, A Ember UTILITIES ESTIMATOR AND DRAFTER Unavailable Unavailable Giovanni, A Ember UTILITIES ESTIMATOR AND DRAFTER Unavailable Unavailable Giovanni, A Ember UTILITIES ESTIMATOR AND DRAFTER Unavailable Unavailable Giovanni, A Ember UTILITIES ESTIMATOR AND DRAFTER Unavailable Unavailable Giovanni, A Ember UTILITIES ESTIMATOR AND DRAFTER Unavailable Unavailable Giovanni, A Ember UTILITIES ESTIMATOR AND DRAFTER Unavailable Unavailable Giovanni, A Ember UTILITIES ESTIMATOR AND DRAFTER Unavailable Unavailable Giovanni, A Ember UTILITIES ESTIMATOR AND DRAFTER Unavailable Unavailable Giovanni, A Ember UTILITIES ESTIMATOR AND DRAFTER Unavailable Unavailable Giovanni, A Ember UTILITIES ESTIMATOR AND DRAFTER Unavailable Unavailable Giovanni, A Ember UTILITIES ESTIMATOR AND DRAFTER Unavailable Unavailable Giovanni, A Ember UTILITIES ESTIMATOR AND DRAFTER Unavailable Unavailable Giovanni, A Ember UTILITIES ESTIMATOR AND DRAFTER Unavailable Unavailable Giovanni, A Ember UTILITIES ESTIMATOR AND DRAFTER Unavailable Unavailable Giovanni, A Ember UTILITIES ESTIMATOR AND DRAFTER Unavailable Unavailable RING, K AFSANEH PA Unavailable [...] Gutierrez MD Unavailable Unavailable Giovanni, A Ember UTILITIES ESTIMATOR AND DRAFTER Unavailable Unavailable Giovanni, A Ember UTILITIES ESTIMATOR AND DRAFTER Unavailable Unavailable Giovanni, A Ember UTILITIES ESTIMATOR AND DRAFTER Unavailable Unavailable Giovanni, A Ember UTILITIES ESTIMATOR AND DRAFTER Unavailable Unavailable Giovanni, A Ember UTILITIES ESTIMATOR AND DRAFTER Unavailable Unavailable Giovanni, A Ember UTILITIES ESTIMATOR AND DRAFTER Unavailable Unavailable Giovanni, A Ember UTILITIES ESTIMATOR AND DRAFTER Unavailable Unavailable Giovanni, A Ember UTILITIES ESTIMATOR AND DRAFTER Unavailable Unavailable Giovanni, A Ebmer UTILITIES ESTIMATOR AND DRAFTER Unavailable Unavailable Giovanni, A Ember UTILITIES ESTIMATOR AND DRAFTER Unavailable Unavailable Giovanni, A Ember UTILITIES ESTIMATOR AND DRAFTER Unavailable Unavailable Giovanni, A Ember UTILITIES ESTIMATOR AND DRAFTER Unavailable Unavailable Giovanni, A Ember UTILITIES ESTIMATOR AND DRAFTER Unavailable Unavailable Giovanni, A Ember UTILITIES ESTIMATOR AND DRAFTER Unavailable Unavailable Giovanni, A Ember UTILITIES ESTIMATOR AND DRAFTER Unavailable Unavailable Giovanni, A Ember UTILITIES ESTIMATOR AND DRAFTER Unavailable Unavailable Giovanni, A Ember UTILITIES ESTIMATOR AND DRAFTER Unavailable Unavailable Giovanni, A Ember UTILITIES ESTIMATOR AND DRAFTER Unavailable Unavailable Giovanni, A Ember UTILITIES ESTIMATOR AND DRAFTER Unavailable Unavailable Giovanni, A Ember UTILITIES ESTIMATOR AND DRAFTER Unavailable Unavailable Giovanni, A Emebr UTILITIES ESTIMATOR AND DRAFTER Unavailable Unavailable Giovanni, A Ember UTILITIES ESTIMATOR AND DRAFTER Unavailable Unavailable Giovanni, A Ember UTILITIES ESTIMATOR AND DRAFTER Unavailable Unavailable Giovanni, A Ember UTILITIES ESTIMATOR AND DRAFTER Unavailable Unavailable Giovanni, A Ember UTILITIES ESTIMATOR AND DRAFTER Unavailable Unavailable Giovanni, A Ember UTILITIES ESTIMATOR AND DRAFTER Unavailable Unavailable Giovanni, A Ember UTILITIES ESTIMATOR AND DRAFTER Unavailable Unavailable Giovanni, A Ember UTILITIES ESTIMATOR AND DRAFTER Unavailable Unavailable Giovanni, A Ember UTILITIES ESTIMATOR AND DRAFTER Unavailable Unavailable Giovanni, A Ember UTILITIES ESTIMATOR AND DRAFTER Unavailable Unavailable Giovanni, A Ember UTILITIES ESTIMATOR AND DRAFTER Unavailable Unavailable Scordo, M Shoshana PA Unavailable [...] is protected by Article 27-F of the [facility] Public Health law. If you continue you may have access to information: Regarding HIV / AIDS; Provided by facilities licensed or operated by the [facility] Office of Mental Health; or Provided by the [facility] Office for People With Developmental Disabilities. If such information is present, then the following [facility] mandated warning applies: This information has been [...] law may result in a fine or chcf sentence or both. A general authorization for the release of medical or other information is NOT sufficient authorization for further disc losure. Allergies and Adverse Reactions Type Description Substance Reaction Status Data Source(s ) Allergy to substance Allergy to substance Bactrim [facility] ([facility]) Allergy to substance Allergy to substance Bactrim [facility] ([facility]) Allergy to substance Allergy to substance Bactrim [facility] ([facility]) Allergy to substance Allergy to substance Bactrim [facility] ([facility]) Allergy to substance Allergy to substance Bactrim [facility] ([facility]) Drug allergy BACTRIM BACTRIM [facility] Family History Family Member Name Family Member Gender Family Member Status Date o f Status Description Data Source(s) Unknown Unknown Problem [facility] Unknown Unknown Problem [facility] Encounters Encounter Providers Location Date Indications Data Source(s ) Outpatient Attender: NITIN DESHPANDE 07/11 10:02:09 AM EDT - 07/24/2021 10:34:08 AM EDT DocuTap ([facility] ) Patria Schneider NPP: [address] [place] [address], Ph. Attender: PATRIA SCHNEIDER NP [facility] 06/10/2021 12:00:00 AM EDT [facility]) OCTAVIA PadillaBC: [address], [place] [address], Ph. Attender: Ember MEDINA [facility] Medical 03/20/2021 12:00:00 AM EDT [facility]) OCTAVIA PadillaBC: [address], [place] [address], Ph. Attender: Ember MEDINA [facility] Medical 03/20/2021 12:00:00 AM EDT [facility] ([facility]) Shoshana Gore PA-C: [address], [facility] [place] [address], Ph. Attender: Shoshana JAIN [facility] 02/12/2021 12:00:00 AM EDT [facility] ([facility]) Shoshana Gore PA-C: [address], [facility] [place] [address], Ph. Attender: Shoshana JAIN [facility] 02/12/2021 12:00:00 AM EDT [facility] ([facility]) Shoshana Gore PA-C: [address], [facility] [place] [place] [address], Ph. Attender: Shoshana JAIN [facility] 02/12/2021 12:00:00 AM EDT [facility] ([facility]) OCTAVIA PadillaBC: [address], [place] [address], Ph. Attender: Ember Davila [facility] 12/23/2020 12:00:00 AM EDT [facility] ([facility]) NANCY Padilla: [address], [place] [address], Ph. Attender: Ember Davila [facility] Medical 12/23/2020 12:00:00 AM EDT [facility] ([facility]) OCTAVIA PadillaBC: [address], [place] [address], Ph. Attender: Ember Davila [facility] Medical 12/23/2020 12:00:00 AM EDT [facility] ([facility]) OCTAVIA Padilla: [address], [place] [address], Ph. Attender: Ember Davila [facility] 12/23/2020 12:00:00 AM EDT [facility] ([facility]) TeleMedicine Phone E/M by Phys 5-10 Min [address] [place] [address] 12/16/2020 12:00:00 AM EST eCW1 ([facility]) TeleMedicine Phone E/M by Phys 11-20 Min [address] [place] [address] 12/13/2020 12:00:00 AM EST eCW1 ([facility]) Outpatient Attender: AFSANEH Puckett [facility] 12/05/2020 04:15:00 PM EST MEDENT ([facility]) Outpatient Attender: Estefani Gutierrez MD 0 12/01/2020 12:06:12 PM EST - 12/01/2020 12:25:33 PM EST DocuTap ([facility]) Outpatient Attender: CAROL MEDINA 08/15/2020 10:47:00 A M EST [facility] OCTAVIA PadillaBC: [address] [place] [address], Ph. Attender: Ember Davila [facility] 08/14/2020 12:00:00 AM EST [facility] ([facility]) OCTAVIA Padilla: [address], [place] [address], Ph. Attender: Ember Davila [facility] 08/14/2020 12:00:00 AM EST LALEN ([facility]) OCTAVIA PadillaBC: [address], [place] [address], Ph. Attender: Ember MEDINA [facility] Medical 08/14/2020 12:00:00 AM EST [facility] ([facility]) CRAOL Padilla-BC: [address] [place] [address], Ph. [facility] 08/14/2020 12:00:00 AM EST [facility] ([facility]) CAROL Padilla-BC: [address] [place] [address], Ph. [facility]: [facility] 08/14/2020 12:00:00 AM EST [facility] ([facility]) Outpatient Attender: CAROL MEDINA 07/27/2020 10:22:00 P M EDT [facility] Outpatient Attender: Ember MEDINA 07/19/2020 11:5 2:00 AM EDT [facility] Outpatient Attender: CAROL MEDINA 07/19/2020 11:10:00 A M EDT [facility] Outpatient Attender: Ember MEDINA 07/17/2020 10:1 3:01 AM EDT [facility] Outpatient Attender: CAROL MEDINA 07/17/2020 08:30:02 A M EDT [facility] Outpatient Attender: Ember MEDINA 07/17/2020 08:2 9:01 AM EDT [facility] Outpatient Attender: CAROL LYNN 07/17/2020 07:47:01 A M EDT [facility] Outpatient Attender: CAROL MEDINA 07/17/2020 07:45:00 A M EDT [facility] Outpatient Attender: Ember MEDINA [facility] 07/13/2020 07:4 2:03 PM EDT [facility] Outpatient Attender: CAROL MEDINA [facility] 07/13/2020 07:42:02 P M EDT [facility] Outpatient Attender: Ember Davila [facility] 07/13/2020 11:1 1:02 AM EDT [facility] Outpatient Attender: CAROL Davila [facility] 07/11/2020 03:17:00 P M EDT [facility] Outpatient Attender: CAROL Davila [facility] 05/31/2020 03:21:00 P M EDT [facility] Outpatient [facility] 05/31/2020 02:36:00 PM EDT [facility] Outpatient [facility] 05/31/2020 12:00:09 AM EDT [facility] Outpatient [facility] 05/30/2020 01:14:02 PM EDT [facility] Outpatient [facility] 05/30/2020 01:14:01 PM EDT [facility]patient [facility] 05/30/2020 11:24:00 AM EDT [facility] Immunizations Vaccine Date Status Description Data Source(s) COVID-19 VACC, MRNA(PFIZER)/PF 06/20/2021 12:00:00 AM EDT completed [facility] COVID-19 VACCINE Pfizer 06/20/2021 12:00:00 AM EDT completed [facility] Vaccine Series Complete: YESThis Data wa s Submitted to [facility] [employer]. COVID-19, mRNA, LNP-S, PF, 100 mcg/0.5 mL dose 05/30/2021 12 :00:00 AM EDT completed 05/30/2021 [facility] ([facility]) COVID-19 VACCINE Pfizer 05/30/2021 12:00:00 AM EDT completed [facility] Vaccine Series Complete: NOThis Data was Submitted to [facility] [employer]. COVID-19 VACC, MRNA(PFIZER)/PF 05/30/2021 12:00:00 AM EDT completed [facility] New in 2011. IIV4 08/14/2020 01:43:00 PM EST completed 0.5 mL [facility] ([facility]) New in 2011. IIV4 08/14/2020 01:43:00 PM EST completed 0.5 mL [facility] ([facility]) New in 2011. IIV4 08/14/2020 01:43:00 PM EST completed .5 mL [facility] ([facility]) New in 2011. IIV4 08/14/2020 01:43:00 PM EST completed .5 mL [facility] ([facility]) New in 2011. IIV4 08/14/2020 01:43:00 PM EST completed .5 mL [facility] ([facility]) Medications Medication Brand Name Start Date [...] 137 mcg (0.1 %) nasal spray aerosol [id number] completed azelastine hydrochloride 0.137 MG/ACTUAT Metered Dose Nasal [place] [facility] ([facility]) cefdinir 300 MG Oral Capsule cefdinir 30 0 mg capsule TAKE ONE CAPSULE BY MOUTH TWICE A DAY FOR 10 DAYS cefdinir 300 mg capsule TAKE ONE CAPSULE BY MOUTH TWICE A DAY FOR 10 DAYS completed cefd inir 300 MG Oral Capsule [facility] ([facility]) Azithromycin 250 MG Oral Tablet azithrom ycin 250 mg tablet TAKE TWO TABLETS BY MOUTH AT ONCE ON THE FIRST DAY THEN TAKE ONE DAILY THEREAFTER azithromycin 250 mg tablet TAKE TWO TABLETS BY MOUTH AT ONCE ON THE FIRST DAY THEN TAKE ONE DAILY THEREAFTER completed azithromyci n 250 MG Oral Tablet [facility] ([facility]) cefdinir 300 MG Oral Capsule cefdinir 30 0 mg capsule TAKE ONE CAPSULE BY MOUTH TWICE A DAY FOR 10 DAYS cefdinir 300 mg capsule TAKE ONE CAPSULE BY MOUTH TWICE A DAY FOR 10 DAYS completed cefd inir 300 MG Oral Capsule [facility] ([facility]) Azithromycin 250 MG Oral Tablet azithrom ycin 250 mg tablet TAKE TWO TABLETS BY MOUTH AT ONCE ON THE FIRST DAY THEN TAKE ONE DAILY THEREAFTER azithromycin 250 mg tablet TAKE TWO TABLETS BY MOUTH AT ONCE ON THE FIRST DAY THEN TAKE ONE DAILY THEREAFTER completed azithromyci n 250 MG Oral Tablet [facility] ([facility]) Ibuprofen 600 MG Oral Tablet ibuprofen 6 00 mg tablet TAKE ONE TABLET BY MOUTH EVERY 6 HOURS NEEDED FOR PAIN ibuprofen 600 mg tablet TAKE ONE TABLET BY MOUTH EVERY 6 HOURS NEEDED FOR PAIN completed ibuprofen 600 MG Oral Tablet [facility] ([facility]) Oseltamivir 75 MG Oral Capsule oseltamivir 75 mg capsu le oseltamivir 75 mg capsule completed oseltamivir 75 MG Oral Capsule [facility]) Oseltamivir 75 MG Oral Capsule oseltamivir 75 mg capsu le oseltamivir 75 mg capsule completed oseltamivir 75 MG Oral Capsule [facility]) azelastine 137 mcg (0.1 %) nasal spray aerosol [id number] completed azelastine hydrochloride 0.137 MG/ACTUAT Metered Dose Nasal Baker [facility]) cefdinir 300 MG Oral Capsule cefdinir 30 0 mg capsule TAKE ONE CAPSULE BY MOUTH TWICE A DAY FOR 10 DAYS cefdinir 300 mg capsule TAKE ONE CAPSULE BY MOUTH TWICE A DAY FOR 10 DAYS completed cefd inir 300 MG Oral Capsule [facility] ([facility]) [place] 28 0.15 mg-0.03 mg tablet [id number] completed [place] 28 0.15 mg-0.03 mg tablet [facility]EN ([facility]) Ondansetron 4 MG Disintegrating Oral Tab let ondansetron 4 mg disintegrating tablet ondansetron 4 mg disintegrating tablet completed ondansetron 4 MG Disintegrating Oral Tablet [facility] ([facility]) Ibuprofen 600 MG Oral Tablet ibuprofen 6 00 mg tablet TAKE ONE TABLET BY MOUTH EVERY 6 HOURS NEEDED FOR PAIN ibuprofen 600 mg tablet TAKE ONE TABLET BY MOUTH EVERY 6 HOURS NEEDED FOR PAIN completed ibuprofen 600 MG Oral Tablet [facility] ([facility]) Loratadine 10 MG [...] EVERY 4 6 HOURS NEEDED FOR WHEEZING [id number] completed [id number] 200 ACTUAT albuterol 0.09 MG/ACTUAT Metered Dose Inhaler [facility] ([facility]) Ketorolac Tromethamine 5 MG/ML Ophthalmi c Solution ketorolac 0.5 % eye drops INSTILL 1 DROP IN THE AFFECTED EYE S THREE TIMES A DAY FOR 5 DAYS ketorolac 0.5 % eye drops INSTILL 1 DROP IN THE AFFECTED EYE S THREE TIMES A DAY FOR 5 DAYS completed ketorolac trom ethamine 5 MG/ML Ophthalmic Solution [facility] ([facility]) azelastine 137 mcg (0.1 %) nasal spray aerosol [id number] completed azelastine hydrochloride 0.137 MG/ACTUAT Metered Dose Nasal Baker [facility] ([facility]) Loratadine 10 MG Oral Tablet loratadine 10 [...] acetaminophe n 500 MG Oral Tablet [facility] ([facility]) Acetaminophen 325 MG / Oxycodone Hydroch loride 5 MG Oral Tablet oxycodone- acetaminophen 5 mg-325 mg tablet oxycodone-acetaminophen 5 mg-325 mg tablet completed acetaminop hen 325 MG / oxycodone hydrochloride 5 MG Oral Tablet [facility] ([facility]) Acetaminophen 500 MG Oral Tablet acetaminophen 500 mg tablet acetaminophen 500 mg tablet completed acetaminophe n 500 MG Oral Tablet [facility] ([facility]) Azithromycin 250 MG Oral Tablet azithrom ycin 250 mg tablet TAKE TWO TABLETS BY MOUTH AT ONCE ON THE FIRST DAY THEN TAKE ONE DAILY THEREAFTER azithromycin 250 mg tablet TAKE TWO TABLETS BY MOUTH AT ONCE ON THE FIRST DAY THEN TAKE ONE DAILY THEREAFTER completed azithromyci n 250 MG Oral Tablet [facility] ([facility]) cefdinir 300 MG Oral Capsule cefdinir 30 0 mg capsule TAKE ONE CAPSULE BY MOUTH TWICE A DAY FOR 10 DAYS cefdinir 300 mg capsule TAKE ONE CAPSULE BY MOUTH TWICE A DAY FOR 10 DAYS completed cefd inir 300 MG Oral Capsule [facility] ([facility]) [facility] spacer USE DIRECTED [id number] completed [facility] spacer [facility] ([facility]) Azithromycin 250 MG Oral Tablet azithrom ycin 250 mg tablet TAKE TWO TABLETS BY MOUTH AT ONCE ON THE FIRST DAY THEN TAKE ONE DAILY THEREAFTER azithromycin 250 mg tablet TAKE TWO TABLETS BY MOUTH AT ONCE ON THE FIRST DAY THEN TAKE ONE DAILY THEREAFTER completed azithromyci n 250 MG Oral Tablet [facility] ([facility]) Acetaminophen 325 MG / Oxycodone Hydroch loride [...] 137 mcg (0.1 %) nasal spray aerosol [id number] completed azelastine hydrochloride 0.137 MG/ACTUAT Metered Dose Nasal Baker [facility] ([facility]) Loratadine 10 MG Oral Tablet loratadine 10 mg tablet TAKE ONE TABLET BY MOUTH EVERY DAY NEEDED FOR ALLERGY SYMPTOMS loratadine 10 mg tablet TAKE ONE TABLET BY MOUTH EVERY DAY NEEDED FOR ALLERGY SYMPTOMS completed loratadine 10 MG Oral Tablet [facility] ([facility]) Tobramycin 3 MG/ML Ophthalmic Solution t obramycin 0.3 % eye drops INSTILL 2 DROPS INTO THE AFFECTED EYE S THREE TIMES A DAY FOR 7 DAYS tobramycin 0.3 % eye drops INSTILL 2 DROPS INTO THE AFFECTED EYE S THREE TIMES A DAY FOR 7 DAYS completed tobramycin 3 MG/ML Oph thalmic Solution [facility] ([facility]) Oseltamivir 75 MG Oral Capsule oseltamivir 75 mg capsu le oseltamivir 75 mg capsule completed oseltamivir 75 MG Oral Capsule [facility] ([facility]) Jennifer 28 0.15 mg-0.03 mg tablet [id number] completed Jennifer 28 0.15 mg-0.03 mg tablet [facility] ([facility]) Alprazolam 0.5 MG Oral Tablet alprazolam 0.5 mg tablet alpra zolam 0.5 mg tablet completed alprazolam 0.5 MG Oral Tablet [facility] ([facility]) [place] 28 0.15 mg-0.03 mg tablet [id number] completed [place] 28 0.15 mg-0.03 mg tablet [facility] ([facility] [...] ondansetron 4 MG Disintegrating Oral Tablet [facility] ([facility]) Oseltamivir 75 MG Oral Capsule oseltamivir 75 mg capsu le oseltamivir 75 mg capsule completed oseltamivir 75 MG Oral Capsule [facility] ([facility]) cefdinir 300 MG Oral Capsule cefdinir 30 0 mg capsule TAKE ONE CAPSULE BY MOUTH TWICE A DAY FOR 10 DAYS cefdinir 300 mg capsule TAKE ONE CAPSULE BY MOUTH TWICE A DAY FOR 10 DAYS completed cefd inir 300 MG Oral Capsule [facility] ([facility]) Loratadine 10 MG Oral Tablet loratadine 10 [...] completed acetaminophe n 500 MG Oral Tablet [facility] ([facility]) Jennifer 28 0.15 mg-0.03 mg tablet [id number] completed Jennifer 28 0.15 mg-0.03 mg tablet [facility] ([facility]) Azithromycin 250 MG Oral Tablet azithrom ycin 250 mg tablet TAKE TWO TABLETS BY MOUTH AT ONCE ON THE FIRST DAY THEN TAKE ONE DAILY THEREAFTER azithromycin 250 mg tablet TAKE TWO TABLETS BY MOUTH AT ONCE ON THE FIRST DAY THEN TAKE ONE DAILY THEREAFTER completed azithromyci n 250 MG Oral Tablet [facility] ([facility]) Ibuprofen 600 MG Oral Tablet ibuprofen 6 [...] EVERY 4 6 HOURS NEEDED FOR WHEEZING [id number] completed [id number] 200 ACTUAT albuterol 0.09 MG/ACTUAT Metered Dose Inhaler [facility] ([facility]) Acetaminophen 500 MG Oral Tablet acetaminophen 500 mg tablet acetaminophen 500 mg tablet completed acetaminophe n 500 MG Oral Tablet [facility] ([facility]) benzonatate 100 MG Oral Capsule benzonat ate [...] ondansetron 4 MG Disintegrating Oral Tablet [facility] ([facility]) albuterol sulfate HFA 90 mcg/actuation a erosol inhaler INHALE 2 PUFFS BY MOUTH EVERY 4 6 HOURS NEEDED FOR WHEEZING [id number] completed [id number] 200 ACTUAT albuterol 0.09 MG/ACTUAT Metered Dose Inhaler [facility] ([facility]) Acetaminophen 500 MG Oral Tablet acetaminophen 500 mg tablet acetaminophen 500 mg tablet completed acetaminophe n 500 MG Oral Tablet [facility] ([facility]) Acetaminophen 325 MG / Oxycodone Hydroch loride 5 MG Oral Tablet oxycodone- acetaminophen 5 mg-325 mg tablet oxycodone-acetaminophen 5 mg-325 mg tablet completed acetaminop hen 325 MG / oxycodone hydrochloride 5 MG Oral Tablet ALLEN ([facility]) Jennifer 28 0.15 mg-0.03 mg tablet [id number] completed Jennifer 28 0.15 mg-0.03 mg tablet [...] 137 mcg (0.1 %) nasal spray aerosol [id number] completed azelastine hydrochloride 0.137 MG/ACTUAT Metered Dose Nasal Baker [facility] ([facility]) Oseltamivir 75 MG Oral Capsule oseltamivir 75 mg capsu le oseltamivir 75 mg capsule completed oseltamivir 75 MG Oral Capsule [facility] ([facility]) Insurance Providers Payer name Policy type / Coverage type Policy ID Covered libertarian ID Covered libertarian's relationship to paulson Policy Paulson Plan Information [facility] Health Maintenance Organization ([facility]) [id number] Self [id number] formerly [facility] Maintenance Organization ([facility]) [id number] Self [id number] [facility] I [id number] Self [id number] [facility] [employer]. [id number] Self [id number] [facility] P [id number] S [id number] [employer] emp [id number] Employee [id number] [facility] O [id number] S [id number] [facility] Commercial [id number] Self [id number] [facility] [id number] SP [id number] [facility] Health Maintenance Organization (HMO) [id number] Self [id number] [facility] [id number] SP [id number] SELF PAY ONLY [id number] SP [id number] Medicaid S [id number] S [id number] Medicaid S UNAVAILABLE S UNAVAILA BLE [facility] Community Plan P [id number] S [id number] Problems, Conditions, and Diagnoses Code Display Name Description Problem Type Effective Dates Data Source(s) 180569202 Screening for malignant neoplasm of cerv ix Screening for Malignant Neoplasm of Cervix Problem 08/21/2020 12:00:00 AM EST - 02/12/2021 12:00:00 AM EDT [facility] ([facility]) [id number] Screening for malignant neoplasm of cerv ix Screening for Malignant Neoplasm of Cervix Problem 08/21/2020 12:00:00 AM EST - 02/12/2021 12:00:00 AM EDT [facility] ([facility]) [id number] Screening for malignant neoplasm of cerv ix Screening for Malignant Neoplasm of Cervix Problem 08/21/2020 12:00:00 AM EST - 02/12/2021 12:00:00 AM EDT ALLEN ([facility]) [id number] Screening for malignant neoplasm of cerv ix Screening for Malignant Neoplasm of Cervix Problem 08/21/2020 12:00:00 AM EST [facility] ([facility]) 268.9 vitamin D deficiency vitamin D deficiency 07/27 10:21:29 PM EDT [facility] 520.6 [place] teeth impaction [place] teeth impaction 07/17/2020 08:28:21 AM EDT [facility] [id number] Impacted tooth Impacted Tooth Problem 07/17/2020 12:00:00 AM EDT - 02/12/2021 12:00:00 AM EDT [facility] ([facility]) [id number] Vitamin D deficiency Vitamin D Deficiency Problem 07/17/2020 12:00:00 AM EDT [facility] ([facility]) [id number] Impacted tooth Impacted Tooth Problem 07/17/2020 12:00:00 AM EDT - 02/12/2021 12:00:00 AM EDT ALLEN ([facility]) 31129283 Vitamin D deficiency Vitamin D Deficiency Problem 07/17/2020 12:00:00 AM EDT [facility] ([facility]) [id number] Impacted tooth Impacted Tooth Problem 07/17/2020 12:00:00 AM EDT - 02/12/2021 12:00:00 AM EDT [facility] ([facility]) 27907928 Vitamin D deficiency Vitamin D Deficiency Problem 07/17/2020 12:00:00 AM EDT ALLEN ([facility]) [id number] Impacted tooth Impacted Tooth Problem 07/17/2020 12:00: 00 AM EDT [facility] ([facility]) 69268183 Vitamin D deficiency Vitamin D Deficiency Problem 07/17/2020 12:00:00 AM EDT [facility] ([facility]) [id number] Obesity, unspecified Obesity, unspecified 05/30/2020 01:13:19 PM EDT [facility] F17.200 Nicotine dependence, unspecified, uncomp licated Nicotine dependence, unspecified, uncomplicated 05/30/2020 01:13:19 PM EDT [facility] V70.0 Health Screening Health Screening 05/30/2020 01 :13:19 PM EDT [facility] 300.09 Anxiety depression Anxiety depression 0 01:13:19 PM EDT [facility] [id number] General finding of observation of patien t General Finding of Observation of Patient Problem 05/30/2020 12:00:00 AM EDT - 02/12/2021 12:00:00 AM EDT O[facility] ([facility]) [id number] Clinical finding Clinical Finding Problem 020 12:00:00 AM EDT - 02/12/2021 12:00:00 AM EDT O[facility] ([facility]) [id number] Emotional state finding Emotional State Finding Proble m 05/30/2020 12:00:00 AM EDT - 02/12/2021 12:00:00 AM EDT [facility] ([facility]) 54871591 Nicotine dependence Nicotine Dependence Problem 0 05/30/2020 12:00:00 AM EDT O[facility] ([facility]) [id number] General finding of observation of patien t General Finding of Observation of Patient Problem 05/30/2020 12:00:00 AM EDT - 02/12/2021 12:00:00 AM EDT O[facility] ([facility]) [id number] Clinical finding Clinical Finding Problem 020 12:00:00 AM EDT - 02/12/2021 12:00:00 AM EDT O[facility] ([facility]) [id number] Emotional state finding Emotional State Finding Proble m 05/30/2020 12:00:00 AM EDT - 02/12/2021 12:00:00 AM EDT [facility] ([facility]) 11783861 Nicotine dependence Nicotine Dependence Problem 0 05/30/2020 12:00:00 AM EDT ALLEN ([facility]) 299273011 General finding of observation of patien t General Finding of Observation of Patient Problem 05/30/2020 12:00:00 AM EDT - 02/12/2021 12:00:00 AM EDT ALLEN ([facility]) 902479454 Clinical finding Clinical Finding Problem 020 12:00:00 AM EDT - 02/12/2021 12:00:00 AM EDT [facility] ([facility]) [id number] Emotional state finding Emotional State Finding Proble m 05/30/2020 12:00:00 AM EDT - 02/12/2021 12:00:00 AM EDT [facility] ([facility]) 36943187 Nicotine dependence Nicotine Dependence Problem 0 05/30/2020 12:00:00 AM EDT ALLEN ([facility]) 810359505 General finding of observation of patien t General Finding of Observation of Patient Problem 05/30/2020 12:00:00 AM EDT [facility] 286360[facility] Clinical finding Clinical Finding Problem 05/30/2020 12 :00:00 AM EDT [facility] ([facility]) [id number] Emotional state finding Emotional State Finding Proble m 05/30/2020 12:00:00 AM EDT ALLEN ([facility]) 30642108 Nicotine dependence Nicotine Dependence Problem 0 05/30/2020 12:00:00 AM EDT ALLEN ([facility]) [id number] General finding of observation of patien t General Finding of Observation of Patient Problem 05/30/2020 12:00:00 AM EDT ALLEN (No [facility]) [id number] Clinical finding Clinical Finding Problem 05/30/2020 12 :00:00 AM EDT [facility] ([facility]) [id number] Emotional state finding Emotional State Finding Proble m 05/30/2020 12:00:00 AM EDT ALLEN ([facility]) 84432820 Nicotine dependence Nicotine Dependence Problem 0 05/30/2020 12:00:00 AM EDT [facility] ([facility]) Surgeries/Procedures No Information Results ID Date Data Source [id number] 02/11/2021 12:00:00 AM EDT [facility] Name Value Range Interpretation Code Description Data Migdalia rce(s) Supporting Document(s) SARS-[facility]2 [facility] reported by [facility]. ID Date Data Source [id number] 12/23/2020 10:50:00 AM EDT [facility] ([facility]) Name Value Range Interpretation Code Description Data Migdalia rce(s) Supporting Document(s) HIV 1&2 screen centaur negative negative HIV 1&2 Scree n Centaur [facility] ([facility]) ID Date Data Source [id number] 12/23/2020 10:50:00 AM EDT [facility] ([facility]) Name Value Range Interpretation Code Description Data Migdalia rce(s) Supporting Document(s) total 25(oh) vitamin D 31.6 NG/mL 30.0-100.0 Total 25(Oh) Vitamin D [facility] ([facility]) ID Date Data Source [id number] 12/23/2020 10:50:00 [facility] Name Value Range Interpretation Code Description Data Migdalia rce(s) Supporting Document(s) HDL cholesterol 49 mg/dL >40 HDL Cholesterol ATHE NA ([facility]) triglycerides level 173 mg/dL <150 Above high normal Triglycer ides Level [facility] ([facility]) cholesterol level 255 mg/dL <200 Above high normal Cholesterol Level [facility] ([facility]) non-HDL-C 206 mg/dL Non-hdl-c ALLEN ([facility]) Cholesterol in LDL [Mass/volume] in Serum or Plasma 171 mg/dL <100 Above high normal LDL Cholesterol ALLEN ([facility]) cholesterol risk ratio <5 Above high normal Choles terol Risk Ratio [facility] ([facility]) ID Date Data Source [id number] 12/23/2020 10:50:00 AM EDT [facility] ([facility]) Name Value Range Interpretation Code Description Data Migdalia rce(s) Supporting Document(s) blood urea nitrogen 6 mg/dL 7-18 Below low normal Blood Urea Nitrogen [facility] ([facility]) creatinine for GFR 0.87 mg/dL 0.55-1.30 Creatinine for GF R ALL[facility] ([facility]) glucose, fasting 97 mg/dL 70-100 Glucose, Fasting AT [facility] ([facility]) sodium level 138 mEq/L 136-145 Sodium Level ALLEN ([facility]) potassium serum 4.3 mEq/L 3.5-5.1 Potassium Serum ATHE ([facility]) glomerular filtration rate > 60.0 >60 Glomerula r Filtration Rate [facility] ([facility]) chloride level 104 mEq/L 98-107 Chloride Level [facility] ([facility]) carbon dioxide level 27 mEq/L 21-32 Carbon Dioxide Level [facility] ([facility] anion gap 7 mEq/L 8-16 Below low normal Anion Gap [facility] ( [facility]) AST/SGOT 26 U/L 7-37 AST/SGOT ALL[facility] ([facility]) calcium level 10.0 mg/dL 8.5-10.1 Calcium Level [facility] ( [facility]) ALT/SGPT 56 U/L 12-78 ALT/SGPT [facility] ([facility]) bilirubin,total 0.6 mg/dL 0.2-1.0 Bilirubin,total ATHE NA ([facility]) alkaline phosphatase 93 U/L 45-117 Alkaline Phosph atase [facility] ([facility]) albumin 4.0 gm/dL 3.2-5.2 Albumin ALLEN ([facility]) albumin/globulin ratio 1.2-2.2 Below low normal Albumin /globulin Ratio [facility] ([facility]) total protein 7.7 gm/dL 6.4-8.2 Total Protein [facility] ( [facility]) ID Date Data Source [id number] 12/23/2020 10:50:00 AM EDT [facility] ([facility]) Name Value Range Interpretation Code Description Data Migdalia rce(s) Supporting Document(s) red blood count 4.91 10 4.00-5.40 Red Blood Count ATHE NA ([facility]) white blood count 6.8 10 4.0-10.0 White Blood Count [facility] ([facility]) hematocrit 44.4 % 36.0-47.0 Hematocrit [facility] ([facility]) hemoglobin 14.5 g/dL 12.0-15.5 Hemoglobin [facility] ([facility]) mean corpuscular volume 90.4 fL 80.0-96.0 Mean Corpusc ular Volume [facility] ([facility]) mean corpuscular hemoglobin 29.5 pg 27.0-33.0 Mean Cor puscular Hemoglobin [facility] ([facility]) mean corpuscular HGB conc 32.7 g/dL 32.0-36.5 Mean Corpu scular HGB Conc [facility] ([facility]) red cell distribution width 13.1 % 11.5-14.5 Red Cell Distribution Width [facility] ([facility]) platelet count, automated 595 10 150-450 Above high norm al Platelet Count, Automated [facility] ([facility]) neutrophils % 50.4 % 36.0-66.0 Neutrophils % [facility] ( [facility]) eos % 2.3 % 0.0-3.0 Eos % ALLEN ([facility]) mono % 8.5 % 2.0-8.0 Above high normal Garden % [facility] ([facility]) lymph % 37.8 % 24.0-44.0 Lymph % ALLEN ([facility]) baso % 0.9 % 0.0-1.0 Baso % [facility] ([facility]) immature granulocyte % 0.1 % 0-3.0 Immature Gran ulocyte % [facility] ([facility]) neutrophils # 3.4 10 1.5-8.5 Neutrophils # [facility] ( [facility]) nucleated red blood cell % 0.0 % 0-0 Nucleated Red Blood Cell % [facility] ([facility]) mono # 0.6 10 0.0-0.8 Garden # ALLEN ([facility]) lymph # 2.6 10 1.5-5.0 Lymph # [facility]EN ([facility]) eos # 0.2 10 0.0-0.5 Eos # [facility] ([facility]) baso # 0.1 10 0.0-0.2 Baso # ALLEN ([facility]) ID Date Data Source [id number] 12/23/2020 10:50:00 AM EDT [facility] ([facility]) Name Value Range Interpretation Code Description Data Migdalia rce(s) Supporting Document(s) HIV 1&2 screen centaur negative negative HIV 1&2 Scree n Centaur [facility] ([facility]) ID Date Data Source [id number] 12/23/2020 10:50:00 AM EDT [facility] ([facility]) Name Value Range Interpretation Code Description Data Migdalia rce(s) Supporting Document(s) total 25(oh) vitamin D 31.6 NG/mL 30.0-100.0 Total 25(Oh) Vitamin D [facility] ([facility]) ID Date Data Source [id number] 12/23/2020 10:50:00 AM EDT [facility] ([facility]) Name Value Range Interpretation Code Description Data Migdalia rce(s) Supporting Document(s) triglycerides level 173 mg/dL <150 Above high normal Triglycer ides Level [facility] ([facility]) cholesterol level 255 mg/dL <200 Above high normal Cholesterol Level [facility] ([facility]) non-HDL-C 206 mg/dL Non-hdl-c [facility] ([facility]) Cholesterol in LDL [Mass/volume] in Serum or Plasma 171 mg/dL <100 Above high normal LDL Cholesterol [facility] ([facility]) HDL cholesterol 49 mg/dL >40 HDL Cholesterol ATHE ([facility]) cholesterol risk ratio <5 Above high normal Choles terol Risk Ratio [facility] ([facility]) ID Date Data Source [id number] 12/23/2020 10:50:00 AM EDT [facility] ([facility]) Name Value Range Interpretation Code Description Data Migdalia rce(s) Supporting Document(s) blood urea nitrogen 6 mg/dL 7-18 Below low normal Blood Urea Nitrogen [facility] ([facility]) glucose, fasting 97 mg/dL 70-100 Glucose, Fasting AT [facility]) creatinine for GFR 0.87 mg/dL 0.55-1.30 Creatinine for GF R ALL[facility] ([facility]) glomerular filtration rate > 60.0 >60 Glomerula r Filtration Rate [facility] ([facility]) chloride level 104 mEq/L 98-107 Chloride Level [facility] ([facility]) sodium level 138 mEq/L 136-145 Sodium Level ALLEN ([facility]) potassium serum 4.3 mEq/L 3.5-5.1 Potassium Serum [facility] ([facility]) anion gap 7 mEq/L 8-16 Below low normal Anion Gap [facility] ( [facility]) carbon dioxide level 27 mEq/L 21-32 Carbon Dioxide Level [facility] ([facility]) calcium level 10.0 mg/dL 8.5-10.1 Calcium Level [facility] ( [facility]) ALT/SGPT 56 U/L 12-78 ALT/SGPT [facility] ([facility]) AST/SGOT 26 U/L 7-37 AST/SGOT [facility] ([facility]) alkaline phosphatase 93 U/L 45-117 Alkaline Phosph atase [facility] ([facility]) total protein 7.7 gm/dL 6.4-8.2 Total Protein [facility] ( [facility]) bilirubin,total 0.6 mg/dL 0.2-1.0 Bilirubin,total AT[facility] ([facility]) albumin 4.0 gm/dL 3.2-5.2 Albumin ALL[facility] ([facility]) albumin/globulin ratio 1.2-2.2 Below low normal Albumin /globulin Ratio [facility] ([facility]) ID Date Data Source [id number] 12/23/2020 10:50:00 AM EDT [facility] ([facility]) Name Value Range Interpretation Code Description Data Migdalia rce(s) Supporting Document(s) white blood count 6.8 10 4.0-10.0 White Blood Count [facility] ([facility]) hematocrit 44.4 % 36.0-47.0 Hematocrit [facility] ([facility]) hemoglobin 14.5 g/dL 12.0-15.5 Hemoglobin [facility] ([facility]) red blood count 4.91 10 4.00-5.40 Red Blood Count ATHE NA ([facility]) mean corpuscular HGB conc 32.7 g/dL 32.0-36.5 Mean Corpu scular HGB Conc [facility] ([facility]) mean corpuscular hemoglobin 29.5 pg 27.0-33.0 Mean Cor puscular Hemoglobin [facility] ([facility]) mean corpuscular volume 90.4 fL 80.0-96.0 Mean Corpusc ular Volume [facility] ([facility]) platelet count, automated 595 10 150-450 Above high norm al Platelet Count, Automated [facility] ([facility]) red cell distribution width 13.1 % 11.5-14.5 Red Cell Distribution Width [facility] ([facility]) mono % 8.5 % 2.0-8.0 Above high normal Garden % [facility] ([facility]) neutrophils % 50.4 % 36.0-66.0 Neutrophils % [facility] ( [facility]) lymph % 37.8 % 24.0-44.0 Lymph % ALLEN ([facility]) immature granulocyte % 0.1 % 0-3.0 Immature Gran ulocyte % [facility] ([facility]) eos % 2.3 % 0.0-3.0 Eos % [facility] ([facility]) baso % 0.9 % 0.0-1.0 Baso % [facility] ([facility]) lymph # 2.6 10 1.5-5.0 Lymph # [facility] ([facility]) neutrophils # 3.4 10 1.5-8.5 Neutrophils # [facility] ( [facility]) nucleated red blood cell % 0.0 % 0-0 Nucleated Red Blood Cell % [facility] ([facility]) eos # 0.2 10 0.0-0.5 Eos # [facility] ([facility]) mono # 0.6 10 0.0-0.8 Garden # ALL[facility] ([facility]) baso # 0.1 10 0.0-0.2 Baso # [facility] ([facility]) ID Date Data Source [id number] 12/23/2020 10:50:00 AM EDT [facility] ([facility]) Name Value Range Interpretation Code Description Data Migdalia rce(s) Supporting Document(s) HIV 1&2 screen centaur negative negative HIV 1&2 Scree n Centaur [facility] ([facility]) ID Date Data Source [id number] 12/23/2020 10:50:00 AM EDT [facility] ([facility]) Name Value Range Interpretation Code Description Data Migdalia rce(s) Supporting Document(s) total 25(oh) vitamin D 31.6 NG/mL 30.0-100.0 Total 25(Oh) Vitamin D [facility] ([facility]) ID Date Data Source [id number] 12/23/2020 10:50:00 AM EDT [facility] ([facility]) Name Value Range Interpretation Code Description Data Migdalia rce(s) Supporting Document(s) triglycerides level 173 mg/dL <150 Above high normal Triglycer ides Level [facility] ([facility]) cholesterol level 255 mg/dL <200 Above high normal Cholesterol Level [facility] ([facility]) non-HDL-C 206 mg/dL Non-hdl-c [facility] ([facility]) Cholesterol in LDL [Mass/volume] in Serum or Plasma 171 mg/dL <100 Above high normal LDL Cholesterol [facility] ([facility]) HDL cholesterol 49 mg/dL >40 HDL Cholesterol ATHE NA ([facility]) cholesterol risk ratio <5 Above high normal Choles terol Risk Ratio [facility] ([facility]) ID Date Data Source [id number] 12/23/2020 10:50:00 AM EDT [facility] ([facility]) Name Value Range Interpretation Code Description Data Migdalia rce(s) Supporting Document(s) glucose, fasting 97 mg/dL 70-100 Glucose, Fasting AT [facility]) blood urea nitrogen 6 mg/dL 7-18 Below low normal Blood Urea Nitrogen [facility] ([facility]) creatinine for GFR 0.87 mg/dL 0.55-1.30 Creatinine for GF R [facility] ([facility]) sodium level 138 mEq/L 136-145 Sodium Level ALLEN ([facility]) potassium serum 4.3 mEq/L 3.5-5.1 Potassium Serum ATHE NA ([facility]) glomerular filtration rate > 60.0 >60 Glomerula r Filtration Rate ALL[facility] ([facility]) anion gap 7 mEq/L 8-16 Below low normal Anion Gap [facility] ( [facility]) calcium level 10.0 mg/dL 8.5-10.1 Calcium Level [facility] ( [facility]) chloride level 104 mEq/L 98-107 Chloride Level [facility] ([facility]) carbon dioxide level 27 mEq/L 21-32 Carbon Dioxide Level [facility] ([facility]) ALT/SGPT 56 U/L 12-78 ALT/SGPT [facility] ([facility]) alkaline phosphatase 93 U/L 45-117 Alkaline Phosph atase [facility] ([facility]) AST/SGOT 26 U/L 7-37 AST/SGOT [facility] ([facility]) albumin/globulin ratio 1.2-2.2 Below low normal Albumin /globulin Ratio [facility] ([facility]) bilirubin,total 0.6 mg/dL 0.2-1.0 Bilirubin,total ATHE NA ([facility]) albumin 4.0 gm/dL 3.2-5.2 Albumin ALL[facility] ([facility]) total protein 7.7 gm/dL 6.4-8.2 Total Protein [facility] ( [facility]) ID Date Data Source [id number] 12/23/2020 10:50:00 AM EDT [facility] ([facility]) Name Value Range Interpretation Code Description Data Migdalia rce(s) Supporting Document(s) white blood count 6.8 10 4.0-10.0 White Blood Count [facility] ([facility]) red blood count 4.91 10 4.00-5.40 Red Blood Count ATHE NA ([facility]) hematocrit 44.4 % 36.0-47.0 Hematocrit [facility] ([facility]) hemoglobin 14.5 g/dL 12.0-15.5 Hemoglobin [facility] ([facility]) mean corpuscular volume 90.4 fL 80.0-96.0 Mean Corpusc ular Volume [facility] ([facility]) mean corpuscular hemoglobin 29.5 pg 27.0-33.0 Mean Cor puscular Hemoglobin [facility] ([facility]) mean corpuscular HGB conc 32.7 g/dL 32.0-36.5 Mean Corpu scular HGB Conc [facility] ([facility]) red cell distribution width 13.1 % 11.5-14.5 Red Cell Distribution Width [facility] ([facility]) platelet count, automated 595 10 150-450 Above high norm al Platelet Count, Automated [facility] ([facility]) lymph % 37.8 % 24.0-44.0 Lymph % ALLEN ([facility]) neutrophils % 50.4 % 36.0-66.0 Neutrophils % [facility] ( [facility]) mono % 8.5 % 2.0-8.0 Above high normal Garden % [facility] ([facility]) baso % 0.9 % 0.0-1.0 Baso % [facility] ([facility]) eos % 2.3 % 0.0-3.0 Eos % ALLEN ([facility]) immature granulocyte % 0.1 % 0-3.0 Immature Gran ulocyte % [facility] ([facility]) lymph # 2.6 10 1.5-5.0 Lymph # ALLEN ([facility]) nucleated red blood cell % 0.0 % 0-0 Nucleated Red Blood Cell % [facility] ([facility]) neutrophils # 3.4 10 1.5-8.5 Neutrophils # [facility] ( [facility]) mono # 0.6 10 0.0-0.8 Garden # ALLEN ([facility]) eos # 0.2 10 0.0-0.5 Eos # [facility] ([facility]) baso # 0.1 10 0.0-0.2 Baso # [facility] ([facility]) ID Date Data Source [id number] 12/11/2020 10:49:00 PM EST [facility] ([facility]) Name Value Range Interpretation Code Description Data Migdalia rce(s) Supporting Document(s) istat pH 7.403 units 7.350-7.450 Istat pH ALLEN ([facility]) istat pO2 77.0 mmHg 80-105 Below low normal Istat pO2 [facility] ( [facility]) istat pCO2 36.4 mmHg 35.0-45.0 Istat pCO2 [facility] ([facility]) istat HCO3 22.7 mmol/L 22.0-26.0 Istat HCO3 [facility] ([facility]) istat TCO2 24.0 mmol/L 23.0-27.0 Istat TCO2 [facility] ([facility]) istat base excess -2.0 mmol/L -2.0-3.0 Istat Base Excess [facility] ([facility]) istat so2 95 % 95-98 Istat So2 [facility] ([facility]) ID Date Data Source [id number] 12/11/2020 10:49:00 PM EST [facility] ([facility]) Name Value Range Interpretation Code Description Data Migdalia rce(s) Supporting Document(s) istat pH 7.403 units 7.350-7.450 Istat pH [facility] ([facility]) istat pCO2 36.4 mmHg 35.0-45.0 Istat pCO2 [facility] ([facility]) istat pO2 77.0 mmHg 80-105 Below low normal Istat pO2 [facility] ( [facility]) istat TCO2 24.0 mmol/L 23.0-27.0 Istat TCO2 [facility] ([facility]) istat HCO3 22.7 mmol/L 22.0-26.0 Istat HCO3 [facility] ([facility]) istat base excess -2.0 mmol/L -2.0-3.0 Istat Base Excess [facility] ([facility]) istat so2 95 % 95-98 Istat So2 [facility] ([facility]) ID Date Data Source [id number] 12/11/2020 10:49:00 PM EST [facility] ([facility]) Name Value Range Interpretation Code Description Data Migdalia rce(s) Supporting Document(s) istat pH 7.403 units 7.350-7.450 Istat pH [facility] ([facility]) istat pO2 77.0 mmHg 80-105 Below low normal Istat pO2 [facility] ( [facility]) istat TCO2 24.0 mmol/L 23.0-27.0 Istat TCO2 [facility] ([facility]) istat pCO2 36.4 mmHg 35.0-45.0 Istat pCO2 [facility] ([facility]) istat HCO3 22.7 mmol/L 22.0-26.0 Istat HCO3 [facility] ([facility]) istat base excess -2.0 mmol/L -2.0-3.0 Istat Base Excess [facility] ([facility]) istat so2 95 % 95-98 Istat So2 [facility] ([facility]) ID Date Data Source [id number] 12/11/2020 10:49:00 PM EST [facility] ([facility]) Name Value Range Interpretation Code Description Data Migdalia rce(s) Supporting Document(s) istat pO2 77.0 mmHg 80-105 Below low normal Istat pO2 [facility] ( [facility]) istat pCO2 36.4 mmHg 35.0-45.0 Istat pCO2 [facility] ([facility]) istat pH 7.403 units 7.350-7.450 Istat pH [facility] ([facility]) istat TCO2 24.0 mmol/L 23.0-27.0 Istat TCO2 [facility] ([facility]) istat so2 95 % 95-98 Istat So2 [facility] ([facility]) istat base excess -2.0 mmol/L -2.0-3.0 Istat Base Excess [facility] ([facility]) istat HCO3 22.7 mmol/L 22.0-26.0 Istat HCO3 [facility] ([facility]) ID Date Data Source [id number] 11/15/2020 12:00:00 AM EST [facility] Name Value Range Interpretation Code Description Data Migdalia rce(s) Supporting Document(s) SARS-CoV-2 (COVID-19) RNA [Presence] in Respiratory specimen by FLAVIO with probe detection Not Detected [facility] This lab was ordered by [facility] and reported by [employer] ID Date Data Source [id number] 08/14/2020 01:20:00 PM EST [facility] ([facility]) Name Value Range Interpretation Code Description Data Migdalia rce(s) Supporting Document(s) HIV 1&2 screen centaur negative negative HIV 1&2 Scree n Centaur [facility] ([facility]) ID Date Data Source [id number] 08/14/2020 01:20:00 PM EST [facility] ([facility]) Name Value Range Interpretation Code Description Data Migdalia rce(s) Supporting Document(s) HIV 1&2 screen centaur negative negative HIV 1&2 Scree n Lorr [facility] ([facility]) ID Date Data Source [id number] 08/14/2020 01:20:00 PM EST [facility] ([facility]) Name Value Range Interpretation Code Description Data Migdalia rce(s) Supporting Document(s) HIV 1&2 screen centaur negative negative HIV 1&2 Scree n Sheaur [facility] ([facility]) ID Date Data Source [id number] 08/14/2020 01:20:00 PM EST [facility] ([facility]) Name Value Range Interpretation Code Description Data Migdalia rce(s) Supporting Document(s) HIV 1&2 screen centaur negative negative HIV 1&2 Scree n Lorr [facility] ([facility]) ID Date Data Source [id number] 08/14/2020 01:06:00 PM EST [facility] ([facility]) Name Value Range Interpretation Code Description Data Migdalia rce(s) Supporting Document(s) chlamydia DNA probe negative negative Chlamydia DNA Pr obe [facility] ([facility]) GC DNA probe negative negative GC DNA Probe [facility] (No [facility]) ID Date Data Source [id number] 08/14/2020 01:06:00 PM EST [facility] ([facility]) Name Value Range Interpretation Code Description Data Migdalia rce(s) Supporting Document(s) trichomonas vaginalis (amp) not detected negative Tricho monas Vaginalis (Amp) [facility] ([facility]) ID Date Data Source [id number] 08/14/2020 01:06:00 PM EST [facility] ([facility]) Name Value Range Interpretation Code Description Data Migdalia rce(s) Supporting Document(s) appearance, urine clear clear Appearance, Urine [facility] ([facility]) pH,urine 6.0 units 5.0-9.0 pH,urine [facility] ([facility]) color, urine yellow yellow Color, Urine [facility] (No [facility]) specific gravity urine auto 1.002-1.035 Specifi c [place] Urine Auto [facility] ([facility]) glucose, urine (UA) auto negative negative Glucose, Ur ine (UA) Auto [facility] ([facility]) ketone, urine auto negative negative Ketone, Urine Aut o [facility] ([facility]) protein, urine auto negative negative Protein, Urine A uto [facility] ([facility]) urobilinogen, urine auto 0.2 mg/dL 0.0-2.0 Urobilinoge n, Urine Auto [facility] ([facility]) bilirubin, urine auto negative negative Bilirubin, Uri ne Auto [facility] ([facility]) nitrite, urine auto negative negative Nitrite, Urine A uto [facility] ([facility]) leukocyte esterase, urine auto negative negative Leukocyte Esterase, Urine Auto [facility] ([facility]) WBC, urine auto 1 /hpf 0-3 WBC, Urine Auto ATHE NA ([facility]) blood, urine blood negative negative Blood, Urine Bloo d [facility] ([facility]) RBC, urine auto 0 /hpf 0-3 RBC, Urine Auto [facility] ([facility]) bacteria, urine auto 1+ negative Above high normal Bacteria , Urine Auto [facility] ([facility]) hyaline cast, urine auto 0 /lpf 0-1 Hyaline Nelson t, Urine Auto [facility] ([facility]) squamous epithelial cell ur AU 2 /hpf 0-6 Squam ous Epithelial Cell Ur AU [facility] ([facility]) ID Date Data Source [id number] 08/14/2020 01:06:00 PM EST [facility] ([facility]) Name Value Range Interpretation Code Description Data Migdalia rce(s) Supporting Document(s) chlamydia DNA probe negative negative Chlamydia DNA Pr obe [facility] ([facility]) GC DNA probe negative negative GC DNA Probe [facility] (No [facility]) ID Date Data Source [id number] 08/14/2020 01:06:00 PM EST [facility] ([facility]) Name Value Range Interpretation Code Description Data Migdalia rce(s) Supporting Document(s) trichomonas vaginalis (amp) not detected negative Tricho monas Vaginalis (Amp) [facility] ([facility]) ID Date Data Source [id number] 08/14/2020 01:06:00 PM EST [facility] ([facility]) Name Value Range Interpretation Code Description Data Migdalia rce(s) Supporting Document(s) pH,urine 6.0 units 5.0-9.0 pH,urine [facility] ([facility]) appearance, urine clear clear Appearance, Urine [facility] ([facility]) color, urine yellow yellow Color, Urine [facility] (No [facility]) specific gravity urine auto 1.002-1.035 Specifi c [place] Urine Auto [facility] ([facility]) glucose, urine (UA) auto negative negative Glucose, Ur ine (UA) Auto [facility] ([facility]) protein, urine auto negative negative Protein, Urine A uto [facility] ([facility]) nitrite, urine auto negative negative Nitrite, Urine A uto [facility] ([facility]) bilirubin, urine auto negative negative Bilirubin, Uri ne Auto [facility] ([facility]) urobilinogen, urine auto 0.2 mg/dL 0.0-2.0 Urobilinoge n, Urine Auto [facility] ([facility]) ketone, urine auto negative negative Ketone, Urine Aut o [facility] ([facility]) WBC, urine auto 1 /hpf 0-3 WBC, Urine Auto AT[facility] NA ([facility]) RBC, urine auto 0 /hpf 0-3 RBC, Urine Auto ATHE NA ([facility]) blood, urine blood negative negative Blood, Urine Bloo d [facility] ([facility]) leukocyte esterase, urine auto negative negative Leukocyte Esterase, Urine Auto [facility] ([facility]) squamous epithelial cell ur AU 2 /hpf 0-6 Squam ous Epithelial Cell Ur AU [facility] ([facility]) hyaline cast, urine auto 0 /lpf 0-1 Hyaline Nelson t, Urine Auto [facility] ([facility]) bacteria, urine auto 1+ negative Above high normal Bacteria , Urine Auto [facility] ([facility]) ID Date Data Source [id number] 08/14/2020 01:06:00 PM EST [facility] ([facility]) Name Value Range Interpretation Code Description Data Migdalia rce(s) Supporting Document(s) GC DNA probe negative negative GC DNA Probe [facility] (No [facility]) chlamydia DNA probe negative negative Chlamydia DNA Pr obe [facility] ([facility]) ID Date Data Source [id number] 08/14/2020 01:06:00 PM EST [facility] ([facility]) Name Value Range Interpretation Code Description Data Migdalia rce(s) Supporting Document(s) trichomonas vaginalis (amp) not detected negative Tricho monas Vaginalis (Amp) [facility] ([facility]) ID Date Data Source [id number] 08/14/2020 01:06:00 PM EST [facility] ([facility]) Name Value Range Interpretation Code Description Data Migdalia rce(s) Supporting Document(s) appearance, urine clear clear Appearance, Urine [facility] ([facility]) pH,urine 6.0 units 5.0-9.0 pH,urine [facility] ([facility]) color, urine yellow yellow Color, Urine ALELN ([facility]) specific gravity urine auto 1.002-1.035 Specifi c [place] Urine Auto [facility] ([facility]) glucose, urine (UA) auto negative negative Glucose, Ur ine (UA) Auto [facility] ([facility]) protein, urine auto negative negative Protein, Urine A uto [facility] ([facility]) bilirubin, urine auto negative negative Bilirubin, Uri ne Auto [facility] ([facility]) ketone, urine auto negative negative Ketone, Urine Aut o [facility] ([facility]) nitrite, urine auto negative negative Nitrite, Urine A uto [facility] ([facility]) urobilinogen, urine auto 0.2 mg/dL 0.0-2.0 Urobilinoge n, Urine Auto [facility] ([facility]) leukocyte esterase, urine auto negative negative Leukocyte Esterase, Urine Auto [facility] ([facility]) WBC, urine auto 1 /hpf 0-3 WBC, Urine Auto AT[facility] NA ([facility]) blood, urine blood negative negative Blood, Urine Bloo d [facility] ([facility]) RBC, urine auto 0 /hpf 0-3 RBC, Urine Auto [facility] ([facility]) squamous epithelial cell ur AU 2 /hpf 0-6 Squam ous Epithelial Cell Ur AU [facility] ([facility]) hyaline cast, urine auto 0 /lpf 0-1 Hyaline Nelson t, Urine Auto [facility] ([facility]) bacteria, urine auto 1+ negative Above high normal Bacteria , Urine Auto [facility] ([facility]) ID Date Data Source [id number] 08/14/2020 01:06:00 PM EST [facility] ([facility]) Name Value Range Interpretation Code Description Data Migdalia rce(s) Supporting Document(s) GC DNA probe negative negative GC DNA Probe [facility] (No [facility]) chlamydia DNA probe negative negative Chlamydia DNA Pr obe [facility] ([facility]) ID Date Data Source [id number] 08/14/2020 01:06:00 PM EST [facility] ([facility]) Name Value Range Interpretation Code Description Data Migdalia rce(s) Supporting Document(s) trichomonas vaginalis (amp) not detected negative Tricho monas Vaginalis (Amp) [facility] ([facility]) ID Date Data Source [id number] 08/14/2020 01:06:00 PM EST [facility] ([facility]) Name Value Range Interpretation Code Description Data Migdalia rce(s) Supporting Document(s) appearance, urine clear clear Appearance, Urine [facility] ([facility]) color, urine yellow yellow Color, Urine [facility] (No [facility]) specific gravity urine auto 1.002-1.035 Specifi c [place] Urine Auto [facility] ([facility]) pH,urine 6.0 units 5.0-9.0 pH,urine [facility] ([facility]) protein, urine auto negative negative Protein, Urine A uto [facility] ([facility]) urobilinogen, urine auto 0.2 mg/dL 0.0-2.0 Urobilinoge n, Urine Auto [facility] ([facility]) ketone, urine auto negative negative Ketone, Urine Aut o [facility] ([facility]) bilirubin, urine auto negative negative Bilirubin, Uri ne Auto [facility] ([facility]) glucose, urine (UA) auto negative negative Glucose, Ur ine (UA) Auto [facility] ([facility]) RBC, urine auto 0 /hpf 0-3 RBC, Urine Auto ATHE NA ([facility]) leukocyte esterase, urine auto negative negative Leukocyte Esterase, Urine Auto [facility] ([facility]) blood, urine blood negative negative Blood, Urine Bloo d [facility] ([facility]) WBC, urine auto 1 /hpf 0-3 WBC, Urine Auto ATHE NA ([facility]) nitrite, urine auto negative negative Nitrite, Urine A uto [facility] ([facility]) hyaline cast, urine auto 0 /lpf 0-1 Hyaline Nelson t, Urine Auto [facility] ([facility]) squamous epithelial cell ur AU 2 /hpf 0-6 Squam ous Epithelial Cell Ur AU [facility] ([facility]) bacteria, urine auto 1+ negative Above high normal Bacteria , Urine Auto [facility] ([facility]) ID Date Data Source [id number] 07/19/2020 11:12:35 AM EDT [facility] Patient History Medical History:anxiety/ depression gallbladderFamily History:maternal grandmother bladder cancerAunt stage 4 lung cancerSocial/Personal History: Smoking Status: current every day smokerCurrent Problems: [place] teeth impaction (ICD-520.6) (FIU63-O02.1)Obesity, unspecified (QMX95-P39.9)Nicotine dependence, unspecified, uncomplicated (ICD10- F17.200)Health Screening (ICD-V70.0) (VCS59-W11.9)Anxiety depression (ICD- 300.09) (VUZ48-L28.8)Current Medications: * PERCOCET every 6 hours as [...] rce(s) Supporting Document(s) ID Date Data Source [id number] 07/17/2020 10:11:46 AM EDT [facility] Current Problems: [place] teeth impaction (ICD-520.6) (TTI80-H10.1)Obesity, unspecified (PLX03-E54.9)Nicotine dependence, unspecified, uncomplicated (ICD10- F17.200)Health Screening (ICD-V70.0) (UPK89-J16.9)Anxiety depression (ICD- 300.09) (JPX67-F99.8)Current Medications: * PERCOCET every 6 hours as needed for pain; Route: ORAL* IBUPROFEN 800 MG every 8 hours 3 times a day as needed; Route: ORAL* FLUOXTINE 20 MG one tab daily; Route: ORALCurrent Allergies: * BACTRIM (Moderate) Name Value Range Interpretation Code Description Data Migdalia rce(s) Supporting Document(s) ID Date Data Source [id number] 07/17/2020 07:40:13 AM EDT [facility] Patient History Medical History:anxiety/ depression gallbladderFamily History:maternal grandmother bladder cancerAunt stage 4 lung cancerSocial/Personal History: Smoking Status: current every day smokerCurrent Problems: [place] teeth impaction (ICD-520.6) (JQW72-F33.1)Obesity, unspecified (YXZ36-I51.9)Nicotine dependence, unspecified, uncomplicated (ICD10- F17.200)Health Screening (ICD-V70.0) (RHV43-L69.9)Anxiety depression (ICD- 300.09) (UOP26-X53.8)Current Medications: * PERCOCET every 6 hours as [...] Notes and Watches:- Tooth 2 Watch: Chen iWlson by ivett (07/17/2020 7:59 AM): - Tooth 24 Note: Has tongue piercing and was explained consequences of wearing this . Chen Staton by nadia (07/17/2020 8:28 AM): - Tooth 3 Watch: Chen Wilson by ivett (07/17/2020 7:59 AM): Assessment & Plan Problems:Added: [place] teeth impaction (ICD-520.6) (ICD10- K01.1)Medications:PERCOCETIBUPROFEN 800 MGFLUOXTINE 20 MGAllergies:* BACTRIM (Moderate)Orders:Oral Surgery Referral [CPT-88764] Name Value Range Interpretation Code Description Data Migdalia rce(s) Supporting Document(s) ID Date Data Source [id number] 07/03/2020 11:18:36 AM EDT [facility] Labs In-House Blood TestsDate/Time Colle cted: July 03, 2020 10:29 AMTest Result Reference Range Normal ValueComments: Labs drawn in office. Taken from left AC. Tolerated well Anna Arnold MA, July 03, 2020 11:19 AMAssessment & Plan Orders:[id number] Vst-Est Level I [CPT-38292] [id number] - Venipuncture [CPT-04396] Electronically signed by Ember MEDINA on 07/13 at 11:10 AM Name Value Range Interpretation Code Description Data Mgidalia rce(s) Supporting Document(s) ID Date Data Source [id number] 07/03/2020 10:29:00 AM EDT [facility] Name Value Range Interpretation Code Description Data Migdalia rce(s) Supporting Document(s) APPEARANCE U CLOUDY CLEAR H [facility] SPEC GR URIN 1.021 1.002-1.035 N [facility] UA COLOR YELLOW YELLOW N [facility] Family [facility] ID Date Data Source [id number] 07/03/2020 10:29:00 AM EDT [facility] Name Value Range Interpretation Code Description Data Migdalia rce(s) Supporting Document(s) HCT 41.6 % 36.0-47.0 N [facility] HGB 13.3 g/dL 12.0-15.5 N [facility] MCH 32.0 G/DL pg 32.0-36.5 N [facility] MCHC 29.8 PG % 27.0-33.0 N [facility] PLATELETS 469 10 10*3/mm3 150-450 H [facility] RBC 4.47 10 10*6/mm3 4.00-5.40 N [facility] RDW 13.2 % 11.5-14.5 N [facility] WBC TOTAL 7.7 4.0-10.0 N [facility] ID Date Data Source [id number] 07/03/2020 10:29:00 AM EDT [facility] Name Value Range Interpretation Code Description Data Migdalia rce(s) Supporting Document(s) BG FASTING 96 mg/dL 70-100 N [facility] T4, FREE 0.95 ng/dL 0.76-1.46 N [facility] TSH 1.300 microintl units/mL 0.358-3.740 N [facility] VIT D25 TOT 17.2 ng/mL 30.0-100.0 L [facility] ID Date Data Source [id number] 07/03/2020 10:29:00 AM EDT [facility] Name Value Range Interpretation Code Description Data Migdalia rce(s) Supporting Document(s) HGBA1C 5.1 % N [facility] ID Date Data Source [id number] 05/30/2020 11:29:54 AM EDT [facility] Measurements & CalculationsHeight: 67 inches (5 [...] been admitted to the hospital? Yes - [facility] admission date reported today: [...] Declined Preferred Language: EnglishFamily and Home Address: [address] [place] [address] What is your housing situation today? I have h ousing Are you worried about losing your housing? NoMoney and Resources In the past year, have you or any family members you live with been unable to get any of the following when it was really needed? Denies Insecurity: food, utilities, clothing, childcare center director, phone, legal services, otherWithin the past year [...] no showsPt states sees DR Norton for [employer]. Pt states had tubal two days ago. [...] and 4. HPI performed by: Ember Davila [facility], May 30, 2020 12:21 PMTransitions of Care InboundProblem ReviewProblem List was reviewed and/or updated during this visit.Medication Reconciliation & ReviewMedication List was reviewed and/or updated during this visit, including review of any rnjn-yuf-ofczdfg medications, herbal therapies, and/or supplements.Allergy ReviewAllergy List [...] GoodAssessment & Plan Problems:Added: Health Screening (ICD-V70.0) (KNA27-B44.9) Assessment: Previous records not available, labs ordered. pt scheduled for follow up Instructions: Fasting labs ordered for you today. Please reurn prior to your next visit to have labs drawn. Please fast for 8-10 hours prior.Anxiety depression (ICD-300.09) (YWK37-O30.8) Assessment: Instructions: We have made a referral for you today. We will contact you to set this upNicotine dependence, unspecified, uncomplicated (GTP83-Q48.200) Assessment: Instructions: Please try to cut back on vaping nicotine with a goal to quit.Obesity, unspecified (UPJ38-Q95.9) Assessment: Instructions: Please try to maintain healthy [...] for painAllergies:* BACTRIM (Moderate)Orders:COMP METABOLIC PANEL [CPT- 28509] CBC W/DIFF [CPT-37163] HgBA1c [CPT-96563] LIPID PANEL [CPT-05085] TSH [CPT-35748] T-4 free [CPT-19922] Vitamin D 250H Unspecified [CPT-19221] URINALYSIS [CPT-42057] Telepsychiatry Consult [CPT-26872] Adult - Ofc Vst, NEW, Level III [CPT-29862] Follow-Up Return to clinic: 4-6 weeks for follow up Clinical Visit Summary Completed Name Value Range Interpretation Code Description Data Migdalia rce(s) Supporting Document(s) Procedure Social History Code Duration Value Status Description Data Source(s ) Smoking 12/13/2020 12:00:00 AM EST Former Smoker completed [facility] Smoking 12/13/2020 12:00:00 AM EST Former Smoker completed Former Sm[facility] Vital Signs ID Date Data Source UNK Name Value Range Interpretation Code Description Data Source(s) Body height 67 [in_i] 67 [in_i] [facility] ([facility]) Body mass index (BMI) [Ratio] 45.1 kg/m2 45.1 k g/m2 [facility] ([facility]) Body weight 4608 [oz_av] 4608 [oz_av] [facility] ([facility]) Systolic blood pressure 134 mm[Hg] 134 mm[Hg] [facility] ([facility]) Diastolic blood pressure 83 mm[Hg] 83 mm[Hg] [facility] ([facility]) Body height 67 [in_i] 67 [in_i] [facility] ([facility]) Diastolic blood pressure 83 mm[Hg] 83 mm[Hg] [facility] ([facility]) Body height 67 [in_i] 67 [in_i] [facility] ([facility]) Systolic blood pressure 134 mm[Hg] 134 mm[Hg] [facility] Diastolic blood pressure 93 mm[Hg] 93 mm[Hg] [facility] ([facility]) Body height 67 [in_i] 67 [in_i] [facility] ([facility]) Body mass index (BMI) [Ratio] 43.1 kg/m2 43.1 k g/m2 [facility] ([facility]) Systolic blood pressure 137 mm[Hg] 137 mm[Hg] [facility] Body weight 4400 [oz_av] 4400 [oz_av] [facility] ([facility]) Diastolic blood pressure 93 mm[Hg] 93 mm[Hg] [facility] ([facility]) Body weight 4400 [oz_av] 4400 [oz_av] [facility] ([facility]) Body height 67 [in_i] 67 [in_i] [facility] ([facility]) Body mass index (BMI) [Ratio] 43.1 kg/m2 43.1 k g/m2 [facility] ([facility]) Systolic blood pressure 137 mm[Hg] 137 mm[Hg] [facility] Body height 67 [in_i] 67 [in_i] [facility] ([facility]) Body mass index (BMI) [Ratio] 43.1 kg/m2 43.1 k g/m2 [facility] ([facility]) Systolic blood pressure 137 mm[Hg] 137 mm[Hg] A [facility] ([facility]) Body weight 4400 [oz_av] 4400 [oz_av] [facility] ([facility]) Diastolic blood pressure 93 mm[Hg] 93 mm[Hg] [facility] ([facility]) Body weight 280 [lb_av] 280 [lb_av] eCW1 ([facility]) Body height 67 [in_i] 67 [in_i] eCW1 ([facility]) Body mass index (BMI) [Ratio] 43.85 kg/m2 43.85 kg/m2 [facility] Systolic blood pressure 134 mm[Hg] 134 mm[Hg] M EDENT ([facility], [facility]) Diastolic blood pressure 86 mm[Hg] 86 mm[Hg] MEDENT ([facility], [facility]) Heart rate 119 /min 119 /min MEDENT ([facility], [facility]) Respiratory rate 14 /min 14 /min MEDENT ( [facility], [facility]) Oxygen saturation in Arterial blood by Pulse oximetry 98 % 98 % MEDENT ([facility], [facility]) Body temperature 96.8 [degF] 96.8 [degF] MEDRENEA ([facility], [facility]) Body weight 285.00 [lb_av] 285.00 [lb_av] STASEN T ([facility], [facility]) Body height 67 [in_i] 67 [in_i] MEDRENEA ([facility], [facility]) 5'7" Body mass index (BMI) [Ratio] 44.6 kg/m2 44.6 k g/m2 MEDENT ([facility], [facility]) Diastolic blood pressure 83 mm[Hg] 83 mm[Hg] [facility] ([facility]) Body height 67 [in_i] 67 [in_i] [facility] ([facility]) Body mass index (BMI) [Ratio] 45.3 kg/m2 45.3 k g/m2 [facility] ([facility]) Systolic blood pressure 129 mm[Hg] 129 mm[Hg] [facility] ([facility]) Body weight 4626 [oz_av] 4626 [oz_av] ALL[facility] ([facility]) Diastolic blood pressure 83 mm[Hg] 83 mm[Hg] [facility] ([facility]) Body height 67 [in_i] 67 [in_i] [facility] ([facility]) Body weight 4626 [oz_av] 4626 [oz_av] ALLEN ([facility]) Body mass index (BMI) [Ratio] 45.3 kg/m2 45.3 k g/m2 [facility] ([facility]) Systolic blood pressure 129 mm[Hg] 129 mm[Hg] [facility] ([facility]) Diastolic blood pressure 83 mm[Hg] 83 mm[Hg] [facility] ([facility]) Body height 67 [in_i] 67 [in_i] [facility] ([facility]) Body mass index (BMI) [Ratio] 45.3 kg/m2 45.3 k g/m2 [facility] ([facility]) Systolic blood pressure 129 mm[Hg] 129 mm[Hg] [facility] ([facility]) Body weight 4626 [oz_av] 4626 [oz_av] [facility] ([facility]) Diastolic blood pressure 83 mm[Hg] 83 mm[Hg] [facility] ([facility]) Body height 67 [in_i] 67 [in_i] [facility] ([facility]) Body mass index (BMI) [Ratio] 45.3 kg/m2 45.3 k g/m2 [facility] ([facility]) Systolic blood pressure 129 mm[Hg] 129 mm[Hg] [facility] Body weight 4626 [oz_av] 4626 [oz_av] [facility] ([facility]) Diastolic blood pressure 83 mm[Hg] 83 mm[Hg] [facility] ([facility]) Body height 67 [in_i] 67 [in_i] [facility] ([facility]) Body mass index (BMI) [Ratio] 45.3 kg/m2 45.3 k g/m2 [facility] ([facility]) Systolic blood pressure 129 mm[Hg] 129 mm[Hg] [facility] Body weight 4626 [oz_av] 4626 [oz_av] [facility] ([facility]) Diastolic blood pressure 80 mm[Hg] 80 mm[Hg] [facility] ([facility]) Body height 67 [in_i] 67 [in_i] [facility] ([facility]) Systolic blood pressure 121 mm[Hg] 121 mm[Hg] [facility] Body weight 4660 [oz_av] 4660 [oz_av] [facility] ([facility]) Body mass index (BMI) [Ratio] 45.78 kg/m2 45.78 kg/m2 [facility] ([facility]) Systolic blood pressure 121 mm[Hg] 121 mm[Hg] [facility] Body weight 4660 [oz_av] 4660 [oz_av] [facility] ([facility]) Diastolic blood pressure 80 mm[Hg] 80 mm[Hg] [facility] ([facility]) Body height 67 [in_i] 67 [in_i] [facility] ([facility]) Diastolic blood pressure 80 mm[Hg] 80 mm[Hg] [facility] ([facility]) Body height 67 [in_i] 67 [in_i] [facility] ([facility]) Body mass index (BMI) [Ratio] 45.78 kg/m2 45.78 kg/m2 [facility] ([facility]) Systolic blood pressure 121 mm[Hg] 121 mm[Hg] A [facility] ([facility]) Body weight 4660 [oz_av] 4660 [oz_av] [facility] ([facility]) Diastolic blood pressure 80 mm[Hg] 80 mm[Hg] [facility] ([facility]) Body height 67 [in_i] 67 [in_i] [facility] ([facility]) Body mass index (BMI) [Ratio] 45.78 kg/m2 45.78 kg/m2 [facility] ([facility]) Systolic blood pressure 121 mm[Hg] 121 mm[Hg] [facility] ([facility]) Body weight 4660 [oz_av] 4660 [oz_av] [facility] ([facility]) Diastolic blood pressure 80 mm[Hg] 80 mm[Hg] [facility] ([facility]) Body height 67 [in_i] 67 [in_i] [facility] ([facility]) Body mass index (BMI) [Ratio] 45.78 kg/m2 45.78 kg/m2 [facility] ([facility]) Systolic blood pressure 121 mm[Hg] 121 mm[Hg] [facility] ([facility]) Body weight 4660 [oz_av] 4660 [oz_av] [facility] ([facility]) Patient Treatment Plan of Care Planned Activity Planned Date Details Description Data Source (s) Tobramycin 3 MG/ML Ophthalmic Solution [facility] ([facility]) Jennifer 28 0.15 mg-0.03 mg tablet [facility] ([facility]) Acetaminophen 325 MG / Oxycodone Hydrochloride 5 MG Oral Tablet [facility] ([facility]) Oseltamivir 75 MG Oral Capsule [facility] ([facility]) Kika Stack [facility] spacer USE DIRECTED [facility] ([facility]) Ondansetron 4 MG Disintegrating Oral Tablet [facility] ([facility]) Loratadine 10 MG Oral Tablet [facility] ([facility]) Ketorolac Tromethamine 5 MG/ML Ophthalmic Solution [facility] ([facility]) Ibuprofen 600 MG Oral Tablet [facility] ([facility]) cefdinir 300 MG Oral Capsule [facility] ([facility]) benzonatate 100 MG Oral Capsule [facility] ([facility]) Azithromycin 250 MG Oral Tablet [facility] ([facility]) azelastine 137 mcg (0.1 %) nasal spray aerosol [facility] ([facility]) Alprazolam 0.5 MG Oral Tablet [facility] ([facility]) albuterol sulfate HFA 90 mcg/actuation a erosol inhaler INHALE 2 PUFFS BY MOUTH EVERY 4 6 HOURS NEEDED FOR WHEEZING [facility] ([facility]) Acetaminophen 500 MG Oral Tablet [facility] ([facility]) Jennifer 28 0.15 mg-0.03 mg tablet [facility] ([facility]) Acetaminophen 325 MG / Oxycodone Hydrochloride 5 MG Oral Tablet [facility] ([facility]) Oseltamivir 75 MG Oral Capsule [facility] ([facility]) Ondansetron 4 MG Disintegrating Oral Tablet [facility] ([facility]) Loratadine 10 MG Oral Tablet [facility] ([facility]) Ibuprofen 600 MG Oral Tablet [facility] ([facility]) cefdinir 300 MG Oral Capsule [facility] ([facility]) benzonatate 100 MG Oral Capsule [facility] ([facility]) Azithromycin 250 MG Oral Tablet [facility] ([facility]) azelastine 137 mcg (0.1 %) nasal spray aerosol [facility] ([facility]) albuterol sulfate HFA 90 mcg/actuation a erosol inhaler INHALE 2 PUFFS BY MOUTH EVERY 4 6 HOURS NEEDED FOR WHEEZING [facility] ([facility]) Acetaminophen 500 MG Oral Tablet [facility] ([facility]) Acetaminophen 325 MG / Oxycodone Hydrochloride 5 MG Oral Tablet [facility] ([facility]) Oseltamivir 75 MG Oral Capsule [facility] ([facility]) Ondansetron 4 MG Disintegrating Oral Tablet [facility] ([facility]) Loratadine 10 MG Oral Tablet [facility] ([facility]) Ibuprofen 600 MG Oral Tablet [facility] ([facility]) cefdinir 300 MG Oral Capsule [facility] ([facility]) benzonatate 100 MG Oral Capsule [facility] ([facility]) Azithromycin 250 MG Oral Tablet [facility] ([facility]) azelastine 137 mcg (0.1 %) nasal spray aerosol [facility] ([facility]) albuterol sulfate HFA 90 mcg/actuation a erosol inhaler INHALE 2 PUFFS BY MOUTH EVERY 4 6 HOURS NEEDED FOR WHEEZING [facility] ([facility]) Acetaminophen 500 MG Oral Tablet [facility] ([facility]) [place] 28 0.15 mg-0.03 mg tablet [facility] ([facility]) Acetaminophen 325 MG / Oxycodone Hydrochloride 5 MG Oral Tablet [facility] ([facility]) Oseltamivir 75 MG Oral Capsule [facility] ([facility]) Loratadine 10 MG Oral Tablet [facility] ([facility]) Ibuprofen 600 MG Oral Tablet [facility] ([facility]) cefdinir 300 MG Oral Capsule [facility] ([facility]) Azithromycin 250 MG Oral Tablet [facility] ([facility]) azelastine 137 mcg (0.1 %) nasal spray aerosol [facility] ([facility]) Acetaminophen 500 MG Oral Tablet [facility] ([facility]) [place] 28 0.15 mg-0.03 mg tablet [facility] ([facility]) Acetaminophen 325 MG / Oxycodone Hydrochloride 5 MG Oral Tablet [facility] ([facility]) Oseltamivir 75 MG Oral Capsule [facility] ([facility]) Loratadine 10 MG Oral Tablet [facility] ([facility]) Ibuprofen 600 MG Oral Tablet [facility] ([facility]) cefdinir 300 MG Oral Capsule [facility] ([facility]) Azithromycin 250 MG Oral Tablet [facility] ([facility]) azelastine 137 mcg (0.1 %) nasal spray aerosol [facility] ([facility]) Acetaminophen 500 MG Oral Tablet [facility] ([facility]) Jennifer 28 0.15 mg-0.03 mg tablet [facility] ([facility])
--- NOTE | 2021-07-29 12:24 | REP ---
INDICATION: LBP since bending/lifting yesterday, ttp along L-spine. COMPARISON: None. TECHNIQUE: Five views lumbosacral spine. FINDINGS: There is no compression fracture or malalignment. There is straightening of the normal lumbar lordosis. Disc spaces are well preserved. Posterior elements are intact. Gallstones are seen in the right upper quadrant. IMPRESSION: No fracture or dislocation. Straightening of lordosis may indicate spasm. <Electronically signed by Vinny Singh > 07/29/21 1312
[2021-07-29] MEDS ORDERED: MOBI4TAB PO (13:17)
[2021-07-29] MEDS ORDERED: PRED20TA PO (13:17)
[2021-07-29 13:34] VITALS: BP 138/92
== END 2021-07-29 13:48 | disposition home or self-care (01) ==
LOC: M ED 09:15
DX: K80.20 Calculus of gallbladder without cholecystitis without obstruction (principal); Z88.1 Allergy status to other antibiotic agents; Z88.2 Allergy status to sulfonamides; F17.210 Nicotine dependence, cigarettes, uncomplicated

== ENCOUNTER 2021-12-12 21:35 | Emergency (ER) | payer OTHER ==
[~2021-12-12] VITALS: Ht 170.2 cm; Wt 132.6 kg
[~2021-12-12 21:35] MED LIST changes: +FLUO20CA22; +MOBI4TAB PO
[2021-12-12] MEDS ORDERED: COLD1MIS PO (21:43)
[2021-12-12] MEDS ORDERED: PROZ20CA11 PO (21:43)
[2021-12-12] MEDS ORDERED: ARIP1TAB6 PO (21:43)
[2021-12-12] MEDS ORDERED: BENZ200C70 PO (21:44)
[2021-12-12 21:45] VITALS: BP 160/98
[2021-12-12] MEDS ORDERED: ONDANSETRON 4 MG ORAL DISINTEGRATING TAB PO ONE (23:20)
[2021-12-12] MEDS ORDERED: KETOROLAC TROMETHAMINE 10 MG TAB PO ONE (23:20)
== END 2021-12-13 00:49 | disposition home or self-care (01) ==
LOC: M ED 21:35
DX: J06.9 Acute upper respiratory infection, unspecified (principal); F33.9 Major depressive disorder, recurrent, unspecified; F41.9 Anxiety disorder, unspecified; G43.909 Migraine, unspecified, not intractable, without status migrainosus; E66.9 Obesity, unspecified; Z79.899 Other long term (current) drug therapy; Z88.2 Allergy status to sulfonamides; Z88.8 Allergy status to other drugs, medicaments and biological substances; F17.210 Nicotine dependence, cigarettes, uncomplicated
CPT/HCPCS: 87798; 87880; 99282; Q0162

== ENCOUNTER → 2022-01-21 | Outpatient (CLI) | payer OTHER ==
[~2022-01-21] MED LIST changes: +ARIP1TAB6 PO; +BENZ200C70 PO; +COLD1MIS PO; +PROZ20CA11 PO
== END ==
LOC: M LABSMTC 10:20
PROVIDERS: ATTEND Anesthesiology
DX: Z11.52 Encounter for screening for COVID-19 (principal); Z20.822 Contact with and (suspected) exposure to COVID-19

== ENCOUNTER 2022-01-26 06:12 | Day surgery (SDC) | payer OTHER ==
[~2022-01-26] VITALS: Ht 170.2 cm; Wt 134.2 kg
[~2022-01-26 06:12] MED LIST changes: +AMPICILLIN SOD/SULBACTAM SOD 3 GM in D5W MINI-BAG PLUS 100 ML IV ONE; +CelecoXIB 400 MG CAP PO ONE; +LR 1,000 ML IV ONE
[2022-01-26] MEDS ORDERED: BUPR75TA5 PO (06:36)
[2022-01-26] MEDS ORDERED: BUPIVACAINE HCL 0.25% 30ML VIAL As Ordered ONE (07:11)
[2022-01-26] MEDS ORDERED: LIDOCAINE 1% SDV 30ML VIAL As Ordered ONE (07:11)
[2022-01-26] MEDS ORDERED: propofoL 200 MG/20 ML VIAL As Ordered ONE (07:14)
[2022-01-26] MEDS ORDERED: dexameTHASONE 4 MG/ML 1ML VIAL (J1100 PER 1MG) As Ordered ONE (07:14)
[2022-01-26] MEDS ORDERED: LIDOCAINE 2% 100MG/5ML SDV (FOR ANES.) As Ordered ONE (07:14)
[2022-01-26] MEDS ORDERED: ONDANSETRON 4MG/2ML VIAL As Ordered ONE (07:14)
[2022-01-26] MEDS ORDERED: fentaNYL 100 MCG/2 ML INJECTION As Ordered ONE ×3 (07:17→09:54)
[2022-01-26] MEDS ORDERED: MIDAZOLAM INJ 2MG/2ML VIAL (J2250 PER 1MG) As Ordered ONE (07:17)
[2022-01-26] MEDS ORDERED: ROCURONIUM BROMIDE 50 MG/5 ML VIAL As Ordered ONE ×2 (07:17→08:11)
[2022-01-26] MEDS ORDERED: ACETAMINOPHEN 1000MG 100ML IV BTL (OFIRMEV) (J0131 PER 10MG) As Ordered ONE (07:58)
[2022-01-26] MEDS ORDERED: KETOROLAC 60MG 2ML VIAL As Ordered ONE (08:02)
[2022-01-26] MEDS ORDERED: SUGAMMADEX SODIUM 500 MG/5 ML VIAL (BRIDION) As Ordered ONE (08:02)
[2022-01-26] MEDS ORDERED: DESFLURANE 240 ML INHALANT As Ordered ONE (08:04)
[2022-01-26] MEDS ORDERED: ESMOLOL INJ 100MG/10ML VIAL As Ordered ONE (08:23)
[2022-01-26] MEDS: fentaNYL 100 MCG/2 ML INJECTION IV PRN ×2 (09:59→10:09)
[2022-01-26] MEDS ORDERED: ONDANSETRON 4MG/2ML VIAL IV PRN (10:00)
[2022-01-26] MEDS ORDERED: LR 1,000 ML IV SCH (10:00)
[2022-01-26] MEDS ORDERED: oxyCODONE 5MG TAB PO PRN (10:00)
[2022-01-26] MEDS ORDERED: KETOROLAC 30 MG/ML 1ML VIAL IV PRN (10:05)
[2022-01-26] MEDS ORDERED: NORCO, ANEXSIA 5/325MG TABLET (HYDROcodone/ACETAMINOPHEN) PO PRN ×2 (10:05)
[2022-01-26] MEDS ORDERED: METOCLOPRAMIDE INJ 10MG/2ML VIAL (J2765 PER 1) As Ordered ONE (10:36)
[2022-01-26] MEDS ORDERED: METOCLOPRAMIDE INJ 10MG/2ML VIAL (J2765 PER 1) IV PRN (10:40)
[2022-01-26 13:40] VITALS: BP 131/59
== END 2022-01-26 14:10 | disposition home or self-care (01) ==
LOC: M SDC 06:12
PROVIDERS: ATTEND Surgery
DX: K80.10 Calculus of gallbladder with chronic cholecystitis without obstruction (principal); K76.0 Fatty (change of) liver, not elsewhere classified; R16.0 Hepatomegaly, not elsewhere classified; R00.1 Bradycardia, unspecified; K80.50 Calculus of bile duct without cholangitis or cholecystitis without obstruction; F41.9 Anxiety disorder, unspecified; F32.A Depression, unspecified; Z86.14 Personal history of Methicillin resistant Staphylococcus aureus infection; G43.909 Migraine, unspecified, not intractable, without status migrainosus; R47.01 Aphasia; Z79.899 Other long term (current) drug therapy; F17.290 Nicotine dependence, other tobacco product, uncomplicated; Z88.2 Allergy status to sulfonamides
CPT/HCPCS: 47563; 64488; 88304; J0131; J0295; J1100; J1885; J2250; J2405; J2765; J3010; S2900

== ENCOUNTER 2022-02-16 22:27 | Emergency (ER) | payer OTHER ==
[~2022-02-16] VITALS: Ht 170.2 cm; Wt 129.9 kg
[~2022-02-16 22:27] MED LIST changes: -AMPICILLIN SOD/SULBACTAM SOD 3 GM in D5W MINI-BAG PLUS 100 ML IV ONE; +BUPR75TA5 PO; -CelecoXIB 400 MG CAP PO ONE; -LR 1,000 ML IV ONE
[2022-02-17 00:47] LABS: BASO % 0.5 % (0.0-1.0); EOS # 0.1 10^3/uL (0.0-0.5); EOS % 0.9 % (0.0-3.0); HEMATOCRIT 43.2 % (36.0-47.0); HEMOGLOBIN 14.7 g/dl (12.0-15.5); LYMPH # 1.6 10^3/uL (1.5-5.0); LYMPH % 20.6 % (24.0-44.0); MEAN CORPUSCULAR HEMOGLOBIN 29.8 pg (27.0-33.0); MEAN CORPUSCULAR VOLUME 87.6 fl (80.0-96.0); MONO # 0.6 10^3/uL (0.0-0.8); MONO % 7.6 % (2.0-8.0); NEUTROPHILS # 5.3 10^3/uL (1.5-8.5); NEUTROPHILS % 69.9 % (36.0-66.0); PLATELET COUNT, AUTOMATED 481 10^3/uL (150-450); RED BLOOD COUNT 4.93 10^6/uL (4.00-5.40); WHITE BLOOD COUNT 7.6 10^3/uL (4.0-10.0)
[2022-02-17 01:13] LABS: ALBUMIN 4.1 GM/DL (3.2-5.2); ALT/SGPT 49 U/L (12-78); BILIRUBIN,DIRECT 0.2 MG/DL (0.0-0.2); BILIRUBIN,TOTAL 0.7 MG/DL (0.2-1.0); BLOOD UREA NITROGEN 16 MG/DL (7-18); CALCIUM LEVEL 9.5 MG/DL (8.5-10.1); CARBON DIOXIDE LEVEL 23 MEQ/L (21-32); CHLORIDE LEVEL 104 MEQ/L (98-107); CREATININE FOR GFR 1.11 MG/DL (0.55-1.30); GLOMERULAR FILTRATION RATE > 60.0 (>60); GLUCOSE, FASTING 108 MG/DL (70-100); LIPASE 88 U/L (73-393); POTASSIUM SERUM 3.8 MEQ/L (3.5-5.1); SODIUM LEVEL 134 MEQ/L (136-145)
[2022-02-17 01:42] LABS: HCG, SERUM QUALITATIVE NEGATIVE (NEGATIVE)
[2022-02-17] MEDS ORDERED: ONDANSETRON 4MG ORAL DISINTEGRATING TAB PO ONE (03:00)
[2022-02-17] MEDS ORDERED: ONDA4TAB6 PO (05:20)
[2022-02-17 05:28] VITALS: BP 130/72
== END 2022-02-17 05:30 | disposition home or self-care (01) ==
LOC: M ED 22:27
DX: K52.9 Noninfective gastroenteritis and colitis, unspecified (principal); U07.1 COVID-19; F33.9 Major depressive disorder, recurrent, unspecified; F41.9 Anxiety disorder, unspecified; Z79.899 Other long term (current) drug therapy; Z88.2 Allergy status to sulfonamides; Z88.8 Allergy status to other drugs, medicaments and biological substances; Z77.098 Contact with and (suspected) exposure to other hazardous, chiefly nonmedicinal, chemicals

== ENCOUNTER 2022-06-29 16:09 | Emergency (ER) | payer OTHER ==
[~2022-06-29] VITALS: Ht 170.2 cm; Wt 131.8 kg
[2022-06-29] MEDS ORDERED: PROAAER10 INH (19:46)
[2022-06-29 20:09] VITALS: BP 145/70
== END 2022-06-29 20:12 | disposition home or self-care (01) ==
LOC: M ED 16:09
DX: R05.9 Cough, unspecified (principal); R06.02 Shortness of breath; B34.8 Other viral infections of unspecified site; Z88.1 Allergy status to other antibiotic agents

== ENCOUNTER 2023-01-01 23:02 | Inpatient (IN) | payer MEDICAID, OTHER ==
[~2023-01-01] VITALS: Ht 170.2 cm; Wt 137.3 kg
[2023-01-02 01:01] LABS: HEMATOCRIT 38.2 % (36.0-47.0); HEMOGLOBIN 12.4 g/dl (12.0-15.5); MEAN CORPUSCULAR HEMOGLOBIN 28.6 pg (27.0-33.0); MEAN CORPUSCULAR HGB CONC 32.5 g/dl (32.0-36.5); PLATELET COUNT, AUTOMATED 459 10^3/uL (150-450); RED BLOOD COUNT 4.34 10^6/uL (4.00-5.40); WHITE BLOOD COUNT 9.2 10^3/uL (4.0-10.0)
[2023-01-02 01:29] LABS: ETHYL ALCOHOL (ETHANOL) < 0.003 % (0.000-0.010)
[2023-01-02 01:30] LABS: ACETAMINOPHEN LEVEL < 2.0 UG/ML (10.0-20.0); SALICYLATE LEVEL < 3.0 MG/DL (<30)
[2023-01-02 01:34] LABS: ALBUMIN 3.7 G/DL (3.2-5.2); ALKALINE PHOSPHATASE 83 U/L (46-116); ALT/SGPT 57 U/L (7.0-40); AST/SGOT 30 U/L (<34); BILIRUBIN,DIRECT 0.2 MG/DL (<0.4); BILIRUBIN,TOTAL 0.6 MG/DL (0.3-1.2); BLOOD UREA NITROGEN 11 MG/DL (9-23); CALCIUM LEVEL 9.1 MG/DL (8.5-10.1); CARBON DIOXIDE LEVEL 25 MMOL/L (20-31); CHLORIDE LEVEL 103 MMOL/L (98-107); CREATININE FOR GFR 0.73 MG/DL (0.55-1.30); GLOMERULAR FILTRATION RATE > 60.0 (>60); GLUCOSE, FASTING 93 MG/DL (60-100); POTASSIUM SERUM 3.7 MMOL/L (3.5-5.1); SODIUM LEVEL 137 MMOL/L (136-145); THYROID STIMULATING HORMONE 2.622 uIU/ML (0.55-4.78); TOTAL PROTEIN 6.8 G/DL (5.7-8.2)
[2023-01-02 01:36] LABS: HCG, SERUM QUALITATIVE NEGATIVE (NEGATIVE)
[2023-01-02] MEDS ORDERED: BUPR150T12 PO (03:02)
[2023-01-02] MEDS ORDERED: FLUO40CA PO (03:02)
[2023-01-02] MEDS ORDERED: ALPR1TAB3 PO (03:02)
[2023-01-02] MEDS ORDERED: ALBU8.5H PO (03:02)
[2023-01-02] MEDS ORDERED: HOME MED LIST COMPLETE! XX SCH (03:05)
[2023-01-02] MEDS ORDERED: ACETAMINOPHEN TAB 650MG DOSE (2X325MG) PO ONE (06:00)
[2023-01-02 06:07] LABS: AMPHETAMINES LEVEL URINE NEGATIVE (NEGATIVE); BARBITURATES URINE NEGATIVE (NEGATIVE); COCAINE METABOLITE URINE NEGATIVE (NEGATIVE); METHADONE URINE NEGATIVE (NEGATIVE); OPIATES URINE NEGATIVE (NEGATIVE); PHENCYCLIDINE URINE NEGATIVE (NEGATIVE)
[2023-01-02 06:15] LABS: BENZODIAZEPINES URINE POSITIVE (NEGATIVE); CANNABINOIDS URINE POSITIVE (NEGATIVE)
[2023-01-02] MEDS ORDERED: MAALOX 30 ML SUSP *UDC PO PRN (13:50)
[2023-01-02] MEDS ORDERED: MOM 30ML SUSPENSION UDC PO PRN (13:50)
[2023-01-02 16:04] VITALS: BP 135/75
[2023-01-02] MEDS: ACETAMINOPHEN TAB 650MG DOSE (2X325MG) PO PRN (17:31)
[2023-01-02 18:57] VITALS: BP 143/91
[2023-01-02] MEDS: traZODone 50 MG TAB PO PRN (21:53)
[2023-01-02] MEDS: NICOTINE 21MG/24HR 1 EA TRANSDERMAL TD PRN (21:53)
[2023-01-03 05:58] VITALS: BP 132/77
[2023-01-03] MEDS: FLUoxetine 20MG CAP PO SCH (08:38)
[2023-01-03] MEDS: buPROPion **XL** TABLET 150MG (WELLBUTRIN XL) PO SCH (08:39)
[2023-01-03] MEDS: NICOTINE 21MG/24HR 1 EA TRANSDERMAL TD PRN (08:40)
[2023-01-03] MEDS: ALPRAZolam 0.5 MG TAB PO PRN ×2 (08:42→18:03)
[2023-01-03] MEDS: ACETAMINOPHEN TAB 650MG DOSE (2X325MG) PO PRN ×2 (08:42→20:48)
[2023-01-03 18:20] VITALS: BP 146/86
[2023-01-03] MEDS: traZODone 50 MG TAB PO PRN (20:48)
[2023-01-03] MEDS ORDERED: ARIPiprazole 2 MG TAB PO SCH (21:00)
[2023-01-04 06:18] VITALS: BP 148/90
[2023-01-04] MEDS: FLUoxetine 20MG CAP PO SCH (12:16)
[2023-01-04] MEDS: buPROPion **XL** TABLET 150MG (WELLBUTRIN XL) PO SCH (12:16)
[2023-01-04] MEDS ORDERED: PREPARATION H OINTMENT (HEMORRHOID) PR PRN (14:40)
[2023-01-04] MEDS ORDERED: CEPACOL LOZENGE PO PRN (14:40)
[2023-01-04] MEDS: ARIPiprazole 2 MG TAB PO SCH (14:54)
[2023-01-04] MEDS: ALPRAZolam 0.5 MG TAB PO PRN (18:33)
[2023-01-04 18:55] VITALS: BP 145/73
[2023-01-04] MEDS: ACETAMINOPHEN TAB 650MG DOSE (2X325MG) PO PRN (21:16)
[2023-01-04] MEDS: traZODone 50 MG TAB PO PRN (22:22)
[2023-01-05 06:42] VITALS: BP 150/80
[2023-01-05] MEDS: FLUoxetine 20MG CAP PO SCH (08:20)
[2023-01-05] MEDS: ACETAMINOPHEN TAB 650MG DOSE (2X325MG) PO PRN ×3 (08:20→22:36)
[2023-01-05] MEDS: buPROPion **XL** TABLET 150MG (WELLBUTRIN XL) PO SCH (08:20)
[2023-01-05] MEDS: ARIPiprazole 2 MG TAB PO SCH (08:20)
[2023-01-05] MEDS: ALPRAZolam 0.5 MG TAB PO PRN ×2 (08:21→22:37)
[2023-01-05] MEDS: NICOTINE 21MG/24HR 1 EA TRANSDERMAL TD PRN (08:22)
[2023-01-05 16:12] VITALS: BP 128/64
[2023-01-05 16:23] VITALS: BP 146/80
[2023-01-05] MEDS: CEPACOL LOZENGES PO PRN (19:58)
[2023-01-05] MEDS: traZODone 50 MG TAB PO PRN (22:36)
[2023-01-06] MEDS ORDERED: IBUPROFEN 100MG 5ML ORAL SUSP UDC PO ONE (01:20)
[2023-01-06] MEDS: ALBUTEROL 90 MCG/ACT 8GM HFA INHALER INH PRN (01:38)
[2023-01-06] MEDS ORDERED: IBUPROFEN 400MG TAB PO ONE (01:45)
[2023-01-06] MEDS: FLUoxetine 20MG CAP PO SCH (09:51)
[2023-01-06] MEDS: buPROPion **XL** TABLET 150MG (WELLBUTRIN XL) PO SCH (09:51)
[2023-01-06] MEDS: CEPACOL LOZENGES PO PRN ×3 (10:03→19:30)
[2023-01-06] MEDS: ACETAMINOPHEN TAB 650MG DOSE (2X325MG) PO PRN ×2 (10:03→17:30)
[2023-01-06] MEDS: ALPRAZolam 0.5 MG TAB PO PRN ×2 (10:03→19:34)
[2023-01-06 16:35] VITALS: BP 140/79
[2023-01-06 21:26] VITALS: BP 160/81
[2023-01-06] MEDS: IBUPROFEN 400MG TAB PO PRN (21:36)
[2023-01-06] MEDS: traZODone 50 MG TAB PO PRN (21:37)
[2023-01-07] MEDS: guaiFENesin DM LIQ 10ML UD PO PRN ×2 (03:03→22:41)
[2023-01-07 06:13] VITALS: BP 134/62
[2023-01-07] MEDS: CEPACOL LOZENGES PO PRN ×3 (08:29→20:47)
[2023-01-07] MEDS: FLUoxetine 20MG CAP PO SCH (08:31)
[2023-01-07] MEDS: buPROPion **XL** TABLET 150MG (WELLBUTRIN XL) PO SCH (08:32)
[2023-01-07] MEDS: IBUPROFEN 400MG TAB PO PRN ×2 (08:33→20:46)
[2023-01-07] MEDS: ALPRAZolam 0.5 MG TAB PO PRN ×2 (08:34→20:46)
[2023-01-07] MEDS: ACETAMINOPHEN TAB 650MG DOSE (2X325MG) PO PRN (15:35)
[2023-01-07 17:15] VITALS: BP 140/82
[2023-01-07] MEDS: traZODone 50 MG TAB PO PRN (20:46)
[2023-01-08 06:17] VITALS: BP 150/82
[2023-01-08] MEDS: CEPACOL LOZENGES PO PRN ×2 (06:35→18:43)
[2023-01-08] MEDS: ALBUTEROL 90 MCG/ACT 8GM HFA INHALER INH PRN ×2 (09:18→18:43)
[2023-01-08] MEDS: FLUoxetine 20MG CAP PO SCH (09:19)
[2023-01-08] MEDS: buPROPion **XL** TABLET 150MG (WELLBUTRIN XL) PO SCH (09:19)
[2023-01-08] MEDS: ALPRAZolam 0.5 MG TAB PO PRN ×2 (09:21→18:44)
[2023-01-08 16:38] VITALS: BP 143/80
[2023-01-08] MEDS: traZODone 50 MG TAB PO PRN (21:14)
[2023-01-08] MEDS: BREXPIPRAZOLE 0.5MG TABLET (REXULTI) PO SCH (21:14)
[2023-01-08] MEDS: guaiFENesin DM LIQ 10ML UD PO PRN (21:47)
[2023-01-09 06:34] VITALS: BP 139/85
[2023-01-09] MEDS: ALBUTEROL 90 MCG/ACT 8GM HFA INHALER INH PRN (09:23)
[2023-01-09] MEDS: CEPACOL LOZENGES PO PRN ×2 (09:24→13:21)
[2023-01-09] MEDS: FLUoxetine 20MG CAP PO SCH (09:25)
[2023-01-09] MEDS: buPROPion **XL** TABLET 150MG (WELLBUTRIN XL) PO SCH (09:25)
[2023-01-09] MEDS: ALPRAZolam 0.5 MG TAB PO PRN ×2 (13:22→20:32)
[2023-01-09 16:29] VITALS: BP 136/74
[2023-01-09] MEDS: IBUPROFEN 400MG TAB PO PRN (20:18)
[2023-01-09] MEDS: traZODone 50 MG TAB PO PRN (20:18)
[2023-01-09] MEDS: BREXPIPRAZOLE 0.5MG TABLET (REXULTI) PO SCH (20:18)
[2023-01-09] MEDS: guaiFENesin DM LIQ 10ML UD PO PRN (21:58)
[2023-01-10 07:01] VITALS: BP 139/81
[2023-01-10] MEDS: FLUoxetine 20MG CAP PO SCH (09:21)
[2023-01-10] MEDS: buPROPion **XL** TABLET 150MG (WELLBUTRIN XL) PO SCH (09:21)
[2023-01-10] MEDS: CEPACOL LOZENGES PO PRN (13:35)
[2023-01-10] MEDS: ALPRAZolam 0.5 MG TAB PO PRN ×2 (13:35→21:42)
[2023-01-10] MEDS: ALBUTEROL 90 MCG/ACT 8GM HFA INHALER INH PRN (13:36)
[2023-01-10 16:43] VITALS: BP 136/77
[2023-01-10] MEDS: traZODone 50 MG TAB PO PRN (20:02)
[2023-01-10] MEDS: BREXPIPRAZOLE 0.5MG TABLET (REXULTI) PO SCH (20:02)
[2023-01-11 06:48] VITALS: BP 138/66
[2023-01-11] MEDS: buPROPion **XL** TABLET 150MG (WELLBUTRIN XL) PO SCH (08:29)
[2023-01-11] MEDS: FLUoxetine 20MG CAP PO SCH (08:29)
[2023-01-11] MEDS: ALPRAZolam 0.5 MG TAB PO PRN ×2 (08:30→20:14)
[2023-01-11] MEDS: ALBUTEROL 90 MCG/ACT 8GM HFA INHALER INH PRN ×2 (08:30→20:11)
[2023-01-11 18:03] VITALS: BP 150/63
[2023-01-11] MEDS: BREXPIPRAZOLE 0.5MG TABLET (REXULTI) PO SCH (20:14)
[2023-01-11] MEDS: traZODone 50 MG TAB PO PRN (20:14)
[2023-01-12 06:03] VITALS: BP 139/81
[2023-01-12] MEDS: ALBUTEROL 90 MCG/ACT 8GM HFA INHALER INH PRN (08:30)
[2023-01-12] MEDS: FLUoxetine 20MG CAP PO SCH (08:30)
[2023-01-12] MEDS: buPROPion **XL** TABLET 150MG (WELLBUTRIN XL) PO SCH (08:30)
[2023-01-12] MEDS: ALPRAZolam 0.5 MG TAB PO PRN (08:31)
[2023-01-12] MEDS ORDERED: ALPR1TAB3 PO (08:52)
[2023-01-12] MEDS ORDERED: BUPR150T12 PO (08:52)
[2023-01-12] MEDS ORDERED: REXU1TAB2 PO (08:52)
[2023-01-12] MEDS ORDERED: PREPOI PR (08:52)
[2023-01-12] MEDS ORDERED: TRAZ-252 PO (08:52)
[2023-01-12] MEDS ORDERED: FLUO20CA22 PO (08:52)
== END 2023-01-12 09:35 | disposition home or self-care (01) | DRG 751 ==
LOC: M ED 23:02 → M ED INP 01-02 13:50 → M PSY 01-02 15:40
PROVIDERS: ADMIT Psychiatry & Neurology Psychiatry; ATTEND Psychiatry & Neurology Psychiatry
DX: F33.2 Major depressive disorder, recurrent severe without psychotic features (principal); R45.851 Suicidal ideations; Z81.8 Family history of other mental and behavioral disorders; G89.29 Other chronic pain; M54.9 Dorsalgia, unspecified; F17.290 Nicotine dependence, other tobacco product, uncomplicated; F60.89 Other specific personality disorders; D75.839 Thrombocytosis, unspecified; R74.01 Elevation of levels of liver transaminase levels; Z79.899 Other long term (current) drug therapy; Z88.2 Allergy status to sulfonamides; Z88.8 Allergy status to other drugs, medicaments and biological substances; Z91.040 Latex allergy status; Z91.52 Personal history of nonsuicidal self-harm

== ENCOUNTER 2023-03-25 07:39 | Emergency (ER) | payer MEDICAID, OTHER ==
[~2023-03-25] VITALS: Ht 170.2 cm; Wt 143.9 kg
[2023-03-25 07:39] VITALS: BP 140/74; TEMP 97.9; O2SAT 98
[~2023-03-25 07:39] MED LIST changes: +ALBU8.5H PO; +ALPR1TAB3 PO; +BUPR150T12 PO; +FLUO40CA PO; +PREPOI PR; +REXU1TAB2 PO; +REXU1TAB3 PO; +TRAZ-252 PO
[2023-03-25] MEDS ORDERED: NAPR-885 (07:58)
[2023-03-25] MEDS ORDERED: CETI10CH PO (07:58)
== END 2023-03-25 10:04 | disposition home or self-care (01) ==
LOC: M ED 07:39
DX: M25.561 Pain in right knee (principal); G43.909 Migraine, unspecified, not intractable, without status migrainosus; Z88.2 Allergy status to sulfonamides; Z91.040 Latex allergy status; Z88.8 Allergy status to other drugs, medicaments and biological substances; Z79.51 Long term (current) use of inhaled steroids; Z79.899 Other long term (current) drug therapy

== ENCOUNTER → 2023-05-19 | Outpatient (REF) | payer OTHER, MEDICAID ==
[~2023-05-19] MED LIST changes: +CETI10CH PO; +NAPR-885
== END ==
LOC: M LAB REF 20:57
PROVIDERS: ATTEND Physician Assistant
DX: B34.9 Viral infection, unspecified (principal)

== ENCOUNTER → 2023-05-21 | Outpatient (REF) | payer OTHER, MEDICAID | LOC: M LAB REF 21:52 | PROVIDERS: ATTEND Physician Assistant | DX: M79.10 Myalgia, unspecified site (principal) ==

== ENCOUNTER → 2023-12-01 | Outpatient (REF) | payer OTHER, MEDICAID ==
[2023-12-01 18:22] LABS: HIV 1&2 SCREEN NEGATIVE (NEGATIVE)
[2023-12-01 18:30] LABS: HEPATITIS C VIRUS ABY INDEX 0.02 INDEX (<0.8)
[2023-12-01 19:35] LABS: Trichomonas vaginalis (AMP) NOT DETECTED (NEGATIVE)
[2023-12-01 19:58] LABS: GC DNA AMPLIFICATION NEGATIVE (NEGATIVE)
== END ==
LOC: M LAB REF 16:37
PROVIDERS: ATTEND Family Medicine Addiction Medicine
DX: Z11.3 Encounter for screening for infections with a predominantly sexual mode of transmission (principal)

== ENCOUNTER 2024-03-13 08:55 | Emergency (ER) | payer MEDICAID, OTHER ==
[~2024-03-13] VITALS: Ht 170.2 cm; Wt 104.3 kg
[2024-03-13 08:55] VITALS: BP 140/86; TEMP 98.6; O2SAT 100
[~2024-03-13 08:55] MED LIST changes: +FLUO-365; +FLUO-365 PO; -FLUO20CA22; -FLUO20CA22 PO; +ONDA-282 PO; -ONDA4TAB6 PO
== END 2024-03-13 10:00 | disposition left against medical advice (07) ==
LOC: M ED 08:55
DX: Z53.21 Procedure and treatment not carried out due to patient leaving prior to being seen by health care provider (principal)

== ENCOUNTER → 2024-06-08 | Outpatient (REF) | payer MEDICAID, OTHER ==
[2024-06-08 18:19] LABS: Trichomonas vaginalis (AMP) NOT DETECTED (NEGATIVE)
[2024-06-08 18:32] LABS: HEMOGLOBIN A1c 5.2 % (4.0-6.0)
[2024-06-08 18:37] LABS: CHOLESTEROL LEVEL 247 MG/DL (<200); CHOLESTEROL RISK RATIO 5.45 (<5); HDL CHOLESTEROL 45.3 MG/DL (>40); LDL CHOLESTEROL 179.1 MG/DL (<100); NON-HDL-C 201.7 MG/DL; THYROID STIMULATING HORMONE 2.153 uIU/ML (0.55-4.78); TRIGLYCERIDES LEVEL 113 MG/DL (<150)
[2024-06-08 18:43] LABS: GC DNA AMPLIFICATION NEGATIVE (NEGATIVE)
[2024-06-08 19:03] LABS: HIV 1&2 SCREEN NEGATIVE (NEGATIVE)
[2024-06-08 19:10] LABS: HEPATITIS C VIRUS ABY INDEX 0.03 INDEX (<0.8)
== END ==
LOC: M LAB REF 16:28
PROVIDERS: ATTEND Family Medicine Addiction Medicine
DX: Z11.3 Encounter for screening for infections with a predominantly sexual mode of transmission (principal); Z68.42 Body mass index [BMI] 45.0-49.9, adult

== ENCOUNTER → 2024-07-04 | Outpatient (REF) | payer OTHER, MEDICAID | LOC: M LAB REF 22:20 | PROVIDERS: ATTEND Physician Assistant Medical | DX: R05.9 Cough, unspecified (principal) ==

== ENCOUNTER 2024-09-03 17:37 | Emergency (ER) | payer MEDICAID, OTHER ==
[~2024-09-03] VITALS: Ht 170.2 cm; Wt 141.2 kg
[2024-09-03 17:40] VITALS: BP 123/78; TEMP 96.9; O2SAT 98
[2024-09-03] MEDS ORDERED: IBUP200T46 PO (17:48)
[2024-09-03] MEDS ORDERED: ZITHTAB PO (19:56)
== END 2024-09-03 20:02 | disposition home or self-care (01) ==
LOC: M ED 17:37
DX: J20.9 Acute bronchitis, unspecified (principal); H65.02 Acute serous otitis media, left ear; J45.909 Unspecified asthma, uncomplicated; F17.290 Nicotine dependence, other tobacco product, uncomplicated; F12.10 Cannabis abuse, uncomplicated; Z88.2 Allergy status to sulfonamides; Z88.8 Allergy status to other drugs, medicaments and biological substances; Z91.040 Latex allergy status; Z79.51 Long term (current) use of inhaled steroids; Z79.1 Long term (current) use of non-steroidal anti-inflammatories (NSAID); Z79.899 Other long term (current) drug therapy

== ENCOUNTER → 2025-09-23 | Outpatient (REF) | payer OTHER, MEDICAID ==
[~2025-09-23] MED LIST changes: +BUPR-363 PO; -BUPR75TA5 PO; -IBUP-1022 PO; +IBUP200T46 PO; +IBUP600T42 PO; -PROZ20CA11 PO; +PROZ20CA25 PO; +ZITHTAB PO
== END ==
LOC: M LAB REF 09:45
PROVIDERS: ATTEND Physician Assistant
DX: B34.9 Viral infection, unspecified (principal)